=== PATIENT | male | born 1935 | race Caucasian/White ===

== ENCOUNTER → 2020-01-18 13:37 | Outpatient (BNVA) | payer MEDICARE, SELFPAY | PROVIDERS: PCP Internal Medicine; Visit Provider Internal Medicine | DX: I48.19 Other persistent atrial fibrillation (principal); Z51.81 Encounter for therapeutic drug level monitoring; Z79.01 Long term (current) use of anticoagulants | CPT/HCPCS: 85610; 99211 ==

== ENCOUNTER 2020-02-02 10:22 | Outpatient (REF) | payer MEDICARE, SELFPAY ==
--- NOTE | 2020-02-02 10:29 | CT_ITS ---
EXAMINATION: CT CHEST WITHOUT CONTRAST CLINICAL INFORMATION: Dyspnea and pulmonary nodules. COMPARISON: None. TECHNIQUE: Multidetector volumetric CT imaging of the chest was done. Axial MIP volume rendering provided. Sagittal and coronal reformatted images were obtained. This CT examination was performed using dose optimization techniques as appropriate, variously including the following: *Automated exposure control *Adjustment of mA and/or kV according to patient size (this includes techniques or standardized protocols for targeted exams where dose is matched to indication/reason for exam; i.e. extremities or head) *Use of iterative reconstruction technique DLP: 209 mGy-cm. FINDINGS: HOT REPAIRMAN: Elevated right hemidiaphragm. LUNGS: The lungs are well expanded with atelectatic changes right lung base. No pulmonary nodule, mass or consolidation seen. MEDIASTINUM: The thyroid lobes are symmetrical and normal. The central trachea and the bronchi are widely patent. Accessory calcified plaques is seen throughout the thoracic aorta with coronary artery calcifications well. The ascending aorta measures 5.3 x 5.1 cm on image 32/3. PLEURA: There is no pleural effusion, thickening or calcification seen. AXILLA: No abnormal lymph nodes. The chest wall is unremarkable. UPPER ABDOMEN: Visualized liver, spleen, adrenal glands appear unremarkable. Exophytic cyst upper pole right kidney. OSSEOUS STRUCTURES: No lytic or sclerotic process seen. There is mild spondylosis throughout dorsal spine. IMPRESSION: Mild atelectatic changes right lower lobe with elevated right hemidiaphragm. No acute consolidation, mass or pulmonary nodules. Exophytic cyst upper pole right kidney.
--- NOTE | 2020-02-02 13:09 | PFT_ITS ---
INDICATION: Lung nodules. SPIROMETRY: The FEV1 to FVC of 86% with an FEV1 of 1.72 L which is 68% predicted and an FVC of 2 L which is 55% predicted. No significant response to bronchodilators noted. Maximum voluntary ventilation 78% predicted. LUNG VOLUMES: Total lung capacity 60% predicted with an expiratory reserve volume of only 7% predicted. DIFFUSION CAPACITY: DLCO 56% predicted. COMPARISON: PFTs from 2016. INTERPRETATION: No obstructive ventilatory defect. No significant response to bronchodilators noted, however there is a moderate restrictive ventilatory defect. The patient also has a moderate diffusion impairment. When compared to 2016, there is significant decrease in the FVC, significant decrease in the FEV1, trend increase in the total lung capacity, and trend decrease in the diffusion capacity. Clinical correlation warranted. MD MEETA Cullen/NEELAM / [phone]
== END 2020-02-02 10:23 | disposition home or self-care (01) ==
LOC: HO.CT 10:22
PROVIDERS: PCP Internal Medicine; Visit Provider Hospitalist
DX: R91.8 Other nonspecific abnormal finding of lung field (principal)
CPT/HCPCS: 71250; 94060; 94727; 94729

== ENCOUNTER → 2020-02-07 10:58 | Outpatient (BNVA) | payer MEDICARE, SELFPAY | PROVIDERS: PCP Internal Medicine; Referring Provider Internal Medicine; Visit Provider Hospitalist | DX: I77.810 Thoracic aortic ectasia (principal); R06.00 Dyspnea, unspecified; J98.11 Atelectasis; R91.8 Other nonspecific abnormal finding of lung field; Z79.01 Long term (current) use of anticoagulants | CPT/HCPCS: 99214 ==

== ENCOUNTER → 2020-02-15 11:00 | Outpatient (BNVA) | payer MEDICARE, SELFPAY | PROVIDERS: PCP Internal Medicine; Visit Provider Internal Medicine | DX: I48.19 Other persistent atrial fibrillation (principal); Z79.01 Long term (current) use of anticoagulants; Z51.81 Encounter for therapeutic drug level monitoring | CPT/HCPCS: 85610; 99211 ==

== ENCOUNTER 2020-03-07 09:17 | Outpatient (REF) | payer MEDICARE, SELFPAY ==
[2020-03-07 10:16] LABS: Basophils Percent Auto 0.2 % (0-2); Eosinophils Absolute Auto 0.1 X10*3/uL (0.0-0.4); Eosinophils Percent Auto 0.8 % (0-4); Hematocrit 45.9 % (42-52); Hemoglobin 15.3 g/dl (14.0-18.0); Imm Gran Abs Auto 0.07 X10*3/uL (0.00-0.03); Imm Gran Pct Auto 0.5 % (0.0-0.4); Lymphocytes Absolute Auto 2.7 X10*3/uL (1.2-4.9); Lymphocytes Percent Auto 20.1 % (20-40); Mean Corpuscular HGB Conc 33.3 g/dl (31.0-36.0); Mean Corpuscular Hemoglobin 30.4 pg (27.0-33.0); Mean Corpuscular Volume 91.3 fL (80-98); Monocytes Absolute Auto 1.4 X10*3/uL (0.1-1.2); Monocytes Percent Auto 10.9 % (2-11); Neutrophils Absolute Auto 8.9 X10*3/uL (2.0-8.3); Neutrophils Percent Auto 67.5 % (45-73); Platelet Count 306 X10*3/uL (160-400); Red Blood Count 5.03 X10*6/uL (4.60-5.80); Red Cell Distribution Width 15.9 % (11.0-16.0); White Blood Count 13.2 X10*3/uL (4.8-10.8)
[2020-03-07 10:17] LABS: MANUAL DIFF FLAG NO
[2020-03-07 10:38] LABS: Cholesterol 167 mg/dL; HDL Cholesterol 34 mg/dL; LDL Cholesterol Calculated 106 mg/dl; Triglycerides 136 mg/dL
[2020-03-07 10:42] LABS: Anion Gap 14 (12-20); Blood Urea Nitrogen 29 mg/dL (9-16); Carbon Dioxide 28 mmol/L (22-29); Chloride 106 mmol/L (96-108); Estimated Glomerular Filt Rate 54; Phosphorus 2.8 mg/dL (2.7-4.5); Potassium 4.7 mmol/l (3.3-5.1); Sodium 143 mmol/L (135-145)
[2020-03-07 11:26] LABS: Renal w Reflex Lab Use Only Order verified
[2020-03-07 11:33] LABS: Calcium 9.1 mg/dL (8.4-10.2)
== END 2020-03-07 09:18 | disposition home or self-care (01) ==
LOC: HO.LAB 09:17
PROVIDERS: Absent Provider Internal Medicine Nephrology; PCP Internal Medicine; Visit Provider Internal Medicine
DX: I12.9 Hypertensive chronic kidney disease with stage 1 through stage 4 chronic kidney disease, or unspecified chronic kidney disease (principal); N18.30 Chronic kidney disease, stage 3 unspecified
CPT/HCPCS: 36415; 80051; 80061; 82310; 82565; 84100; 84520; 85025

== ENCOUNTER 2020-03-10 10:54 | Outpatient (REF) | payer MEDICARE, SELFPAY | END 2020-03-10 10:55 | disposition home or self-care (01) | LOC: HO.LAB 10:54 | PROVIDERS: PCP Internal Medicine; Visit Provider Internal Medicine | DX: Z20.828 Contact with and (suspected) exposure to other viral communicable diseases (principal) | CPT/HCPCS: C9803; U0003 ==

== ENCOUNTER → 2020-03-17 09:04 | Outpatient (BNVA) | payer MEDICARE, SELFPAY | PROVIDERS: PCP Internal Medicine; Visit Provider Internal Medicine | DX: I48.19 Other persistent atrial fibrillation (principal); Z51.81 Encounter for therapeutic drug level monitoring; Z79.01 Long term (current) use of anticoagulants | CPT/HCPCS: 85610; 99211 ==

== ENCOUNTER 2020-03-24 09:30 | Inpatient (IN) | payer MEDICARE, SELFPAY ==
[2020-03-24] VITALS (10 sets, daily range): BP systolic 127–149; BP diastolic 60–85; PULSE 80–94; RESP 16–32; TEMP 36.8–37; O2SAT 80–94; BMI 29.5
--- NOTE | 2020-03-24 09:48 | XR_ITS ---
EXAMINATION: XR CHEST CLINICAL INFORMATION: Dyspnea. COMPARISON: Chest 01/08/2019 TECHNIQUE: Frontal view of the chest was obtained. FINDINGS: The lungs are hypoexpanded but clear of acute process. The heart size is enlarged. Pulmonary vascularity is normal. No gross bony abnormality seen. XR/XR chest 1V IMPRESSION: Hypoexpanded lungs with no acute process seen. Mild cardiomegaly.
--- NOTE | 2020-03-24 09:48 | ECG_ITS ---
Test Reason : DYSPNEA Blood Pressure : / mmHG Vent. Rate : 079 BPM Atrial Rate : 312 BPM P-R Int : 000 ms QRS Dur : 096 ms QT Int : 360 ms P-R-T Axes : 000 -46 012 degrees QTc Int : 412 ms Atrial fibrillation Left axis deviation Abnormal ECG When compared with ECG of 17-DEC-2018 10:34, No significant changes seen Referred By: Shanti Zelaya Electronically Signed By:DHAVAL CUENCA
--- NOTE | 2020-03-24 09:50 | ED_ITS ---
HPI - URI/Sore Throat General Chief Complaint: Dyspnea Stated Complaint: Short of breath Time Seen by Provider: 03/24/20 09:47 Source: EMS Mode of arrival: EMS Limitations: no limitations History of Present Illness MD elicited complaint: cough, rhinorrhea and other (shortness of breath) Pertinent past history: other ( diagnosed with COVID almost 2 weeks ago) Onset (ago): day(s) (patient has been feeling sick since Friday) Consistency: constant Severity: severe Able to tolerate fluids by mouth: Yes Exacerbating factors: exertion Relieving factors: other (oxygen) Context: sick contacts ( with COVID) Associated symptoms: chills, rhinorrhea, cough and shortness of breath Treatments prior to arrival: other (given oxgen en route his RA sat was 80%) Related Data Home Medications Medication Instructions Recorded Confirmed amlodipine 5 mg tablet 5 mg PO DAILY 02/07/20 03/24/20 ascorbate calcium (vitamin C) 500 500 mg PO DAILY 02/07/20 03/24/20 mg tablet atorvastatin 20 mg tablet 20 mg PO DAILY 02/07/20 03/24/20 fenofibrate nanocrystallized 145 145 mg PO DAILY 02/07/20 03/24/20 mg tablet lisinopril 40 mg tablet 40 mg PO DAILY 02/07/20 03/24/20 metoprolol succinate 25 mg 25 mg PO DAILY 02/07/20 03/24/20 tablet,extended release 24 hr warfarin 1.25 mg PO MOWEFRSA@1800 03/24/20 03/24/20 warfarin [Jantoven] 2.5 mg PO SUTUTH@1800 03/24/20 03/24/20 Previous Rx's Medication Instructions Recorded warfarin 2.5 mg tablet See Rx Instructions .ROUTE 01/18/20 .COMPLEX #90 tab Allergies Allergy/AdvReac Type Severity Reaction Status Date / Time No Known Allergies Allergy Verified 03/24/20 09:49 [No Known Allergies*] Review of Systems Review of Systems: Constitutional : No Fever, pos Chills ENT/Mouth : No sore throat, pos Rhinorrhea, No Swallowing Difficulty Eyes: No Eye Pain, No Swelling, No Redness Cardiovascular : No Chest Pain, positive SOB, No Orthopnea,noEdema Respiratory : pos Cough, No Sputum, No Wheezing, positive dyspnea Gastrointestinal : No Nausea, No Vomiting, No Diarrhea, No abdominal Pain, No Hematochezia, No Melena Genitourinary : No Dysuria, No Urinary Frequency, No Hematuria Musculoskeletal : No joint pain, No Myalgias Skin : No Skin Lesions, No rash Neuro : pos Weakness, No Numbness, No Dizziness, No Headache Psych : No Anxiety/Panic, No Depression Heme/Lymph: No Bruising, No Lymphadenopathy Endocrine : No Polyuria, No Polydipsia All other systems reviewed and are negative [facility] Past Medical History Attestation statement: The following information was validated with the patient. Medical History Afib Atelectasis of right lung Dyspnea Ectatic thoracic aorta HTN (hypertension) Hyperlipidemia Pulmonary nodules Surgical History History of knee replacement procedure of left knee History of melanoma excision Family History Family History (Updated 03/06/20 @ 08:45 by Clary Reynolds [facility]) Father Medical history unknown Mother Medical history unknown Brother No problems noted. Social History Social History (Updated 03/24/20 @ 09:52 by Shanti Zelaya DO) Smoking Status: Never smoker Use of substances other than those prescribed or required for medical reasons: No Advance Directives: No Advance Directives Information Provided: No Physical Exam Vital Signs: Vital Signs: Last Vital Signs Temp 98.4 F 03/24/20 09:38 Pulse 90 03/24/20 09:38 Resp 30 H 03/24/20 09:38 BP 149/67 H 03/24/20 09:38 Pulse Ox 80 L 03/24/20 09:38 Body Mass Index 29.5 Appearance: Alert. Oriented X3. mild acute distress. Eyes: Pupils equal, round and reactive to light. ENT: Pharynx normal. Neck: Normal inspection. Neck supple. CVS: Normal heart rate and rhythm. Pulses normal. Respiratory: mild respiratory distress - tachypnea and retractions. Breath sounds no wheezes, crackles at bases Abdomen: Soft and non-tender. Skin: Skin warm and dry. Normal skin color. Normal skin turgor. Extremities: No lower extremity edema. No calf ttp Neuro: Oriented X 3. No motor deficit. No sensory deficit. MDM - URI/Sore Throat MDM Narrative Medical decision making narrative: 84 yo male with known COVID exposure here with dyspnea/URI symptoms hypoxia - requiring O2 6L NC to maintain sats in 90s, hx of undiagnosed ILD - at this time he is on coumadin so PE seems unlikely will obtain labs, cultures, start IV dexamethasone, empiric antibiotics, admit for further care Lab Data Result diagrams: 03/24/20 10:06 03/24/20 10:06 Labs: Lab Results 03/24/20 03/24/20 Range/Units 10:06 10:06 WBC 5.4 (4.8-10.8) X10*3/uL RBC 5.10 (4.60-5.80) X10*6/uL Hgb 15.6 (14.0-18.0) g/dl Hct 46.9 (42-52) % MCV 92.0 (80-98) fL MCH 30.6 (27.0-33.0) pg MCHC 33.3 (31.0-36.0) g/dl RDW 16.0 (11.0-16.0) % Plt Count 204 D (160-400) X10*3/uL MPV 11.6 (9.4-12.4) fL Immature Gran % (Auto) 0.6 H (0.0-0.4) % Neut % (Auto) 70.5 (45-73) % Lymph % (Auto) 22.2 (20-40) % [place] % (Auto) 6.3 (2-11) % Eos % (Auto) 0.2 (0-4) % Baso % (Auto) 0.2 (0-2) % Lymph # (Auto) 1.2 (1.2-4.9) X10*3/uL [place] # (Auto) 0.3 (0.1-1.2) X10*3/uL Eos # (Auto) 0.0 (0.0-0.4) X10*3/uL Baso # (Auto) 0.0 (0.0-0.2) X10*3/uL Abs Immat Gran (auto) 0.03 (0.00-0.03) X10*3/uL Absolute Neuts (auto) 3.8 (2.0-8.3) X10*3/uL Absolute Nucleated RBC 0.000 (0.0-0.012) X10*3/uL Nucleated RBC % (auto) 0.0 (0.0-0.2) /100WBC PT 27.0 H (10.8-13.0) SEC INR 2.3 H (0.9-1.1) APTT 42.8 H (24.1-38.0) SEC D-Dimer < 200 NG/ML ECG Data Attestation: I personally reviewed and interpreted this ECG as follows: ECG interpretation date: 03/24/20 ECG interpretation time: 10:36 Interpretation: Rate: 79 Rhythm: afib [place]: left Normal P waves. Normal GRISELDA. Normal QRS complex. ST T wave : nonspecific, no SHANE qTC: normal prior studies: no acute ischemia The study has been interpreted contemporaneously by me. . Critical Care Time Critical Care Time Critical Care Time: Yes Total Critical Care Time: 35 Attestation: supplemtal O2, IV antibiotics, reassessments. I attest to this time spent taking care of the patient Discharge Plan Discharge Clinical Impression: COVID-19, Hypoxia Patient Disposition: Admitted As Inpatient
[2020-03-24 10:16] LABS: MANUAL DIFF FLAG NO
[2020-03-24 10:26] LABS: Basophils Percent Auto 0.2 % (0-2); Eosinophils Percent Auto 0.2 % (0-4); Hematocrit 46.9 % (42-52); Hemoglobin 15.6 g/dl (14.0-18.0); INTERNATIONAL NORM RATIO 2.3 (0.9-1.1); Imm Gran Abs Auto 0.03 X10*3/uL (0.00-0.03); Imm Gran Pct Auto 0.6 % (0.0-0.4); Lymphocytes Absolute Auto 1.2 X10*3/uL (1.2-4.9); Lymphocytes Percent Auto 22.2 % (20-40); Mean Corpuscular HGB Conc 33.3 g/dl (31.0-36.0); Mean Corpuscular Hemoglobin 30.6 pg (27.0-33.0); Mean Platelet Volume 11.6 fL (9.4-12.4); Monocytes Absolute Auto 0.3 X10*3/uL (0.1-1.2); Monocytes Percent Auto 6.3 % (2-11); Neutrophils Absolute Auto 3.8 X10*3/uL (2.0-8.3); Neutrophils Percent Auto 70.5 % (45-73); Platelet Count 204 X10*3/uL (160-400); White Blood Count 5.4 X10*3/uL (4.8-10.8)
[2020-03-24 10:29] LABS: Partial Thromboplastin Time 42.8 SEC (24.1-38.0)
[2020-03-24 10:32] LABS: D Dimer < 200 NG/ML
[2020-03-24] MEDS: cefTRIAXone sodium 1 GM in 0.9 % Sodium Chloride 50 ML IV (10:33)
[2020-03-24] MEDS: dexAMETHasone sod phosphate 4 MG/ML VIAL IVPUSH (10:33)
[2020-03-24 10:47] LABS: Lactic Acid 1.1 mmol/L (0.5-2.0)
[2020-03-24 10:51] LABS: Alanine Aminotransferase 24 U/L (0-40); Alkaline Phosphatase 36 U/L (39-117); Anion Gap 13 (12-20); Aspartate Amino Transferase 34 U/L (5-37); Bilirubin Direct 0.5 mg/dL (0.0-0.5); Bilirubin Total 0.8 mg/dL (0.0-1.0); Blood Urea Nitrogen 25 mg/dL (9-16); C Reactive Protein 8.67 mg/dL (< or = 0.50); Calcium 8.4 mg/dL (8.4-10.2); Carbon Dioxide 27 mmol/L (22-29); Chloride 107 mmol/L (96-108); Creatinine Clr Calc Pharmacy 47.6; Estimated Glomerular Filt Rate 53; Glucose Random 101 mg/dL (60-115); Lactate Dehydrogenase 426 U/L (118-273); Lipase 53 U/L (8-78); Magnesium 1.9 mg/dL (1.6-2.6); Potassium 4.3 mmol/l (3.3-5.1); Sodium 143 mmol/L (135-145); Total Protein 6.5 g/dL (6.5-8.0)
[2020-03-24 10:58] LABS: B Type Natriuretic Peptide 47 pg/mL (<100)
[2020-03-24 10:58] LABS: Base Excess VBG -0.2 mmol/L; Blood Gas Serial # 5396; HCO3 VBG 27 mmol/L; Oxygen Saturation VBG 38.2 %; PCO2 VBG 52 mmhg; PO2 VBG 25 mmhg; pH VBG 7.33 (7.32-7.43)
[2020-03-24 11:11] LABS: Ferritin 1492 ng/mL (20-250)
[2020-03-24] MEDS: Azithromycin 500 MG in 0.9 % Sodium Chloride 250 ML 125 MG IV (11:19)
[2020-03-24 11:39] LABS: Procalcitonin 0.06 ng/mL
--- NOTE | 2020-03-24 12:09 | PC.NURSE ---
RECVD REPORT FROM TRAVIS CAMERON. PT UPRIGHT IN BED, RR EVEN UNLABORED, SKIN WPD, AOX3. PT ON 55% O2 VIA VENTURI MASK, PT BREATHING WITH EASE, VSS, NAD. PT OFFERS NO ACUTE COMPLAINTS, DRINKING WATER W/OUT DIFFICULTY. PT AWAITING HOSPITALIST EVAL, AWARE/AGREEABLE TO PLAN OF CARE.
[2020-03-24 12:56] LABS: Influenza A PCR NEGATIVE (Negative); Influenza B PCR NEGATIVE (Negative); Resp Syncy Virus RNA Qual PCR NEGATIVE (Negative); SARS COV2 PCR INHOUSE POSITIVE (Negative)
--- NOTE | 2020-03-24 13:48 | PC.NURSE ---
PT UPRIGHT IN BED EATING LUNCH, PT SWITCHED TO NC AT 6L O2 TO EAT, SPO2 DROPPED TO 86% ATT, WILL PLACE BACK ON VENTI MASK WHEN DONE EATING. PT CONTINUES TO OFFER NO ACUTE COMPLAINTS.
--- NOTE | 2020-03-24 14:26 | P.HPHOSP_ITS ---
History of Present Illness Date of Service: 03/24/20 <BENJA Vigil - Last Filed: 03/24/20 14:36> Chief Complaint: Shortness of breath <BENJA Vigil - Last Filed: 03/24/20 14:36> This is an 84-year-old male who presents to the emergency department with shortness of breath. His was recently diagnosed with COVID-19. She began having symptoms about a week and a half ago and her symptoms have since resolved. His symptoms began on March 18. Initially he just felt fatigued and then began feeling short of breath with exertion. Yesterday his oxygen saturation at home was reading 87% on room air. His shortness of breath progressed that any movement at all and this prompted him to come to the emergency department for evaluation. He denies any fever, chills, body aches, c hest pain. On arrival he was hypoxic with an oxygen saturation of 80% on room air. He was also tachypneic. Lab work revealed elevated ferritin of 1492, LDH of 426 and CRP of 8.67. Chest x-ray was unremarkable. He required oxygen by Venti mask 2 main attain oxygen saturations above 90. <BENJA Vigil - Last Filed: 03/24/20 14:36> Review of Systems Review of Systems: Yes all other systems are reviewed and are negative <BENJA Vigil - Last Filed: 03/24/20 14:36> Constitutional: Constitutional: Denies chills and Denies fever(s) <BENJA Vigil - Last Filed: 03/24/20 14:36> Cardiovascular: Cardiovascular: Denies chest pain <BENJA Vigil - Last Filed: 03/24/20 14:36> Respiratory: Respiratory: Denies cough <BENJA Vigil Last Filed: 03/24/20 14:36> Gastrointestinal: Gastrointestinal: Denies abdominal pain <BENJA Vigil - Last Filed: 03/24/20 14:36> [facility] Medical History: Medical History (Updated 03/24/20 @ 14:32 by BENJA Vigil) Afib Atelectasis of right lung CKD (chronic kidney disease) stage 3, GFR 30-59 ml/min Dyspnea Ectatic thoracic aorta Gout HTN (hypertension) Hyperlipidemia Pulmonary nodules <BENJA Vigil - Last Filed: 03/24/20 14:36> Functional capacity: independent ambulation <BENJA Vigil - Last Filed: 03/24/20 14:36> Family History: Family History Father Heart disease Mother Dementia Brother No problems noted. <BENJA Vigil - Last Filed: 03/24/20 14:36> Family history: reviewed and not pertinent <BENJA Vigil - Last Filed: 03/24/20 14:36> Surgical History: Surgical History History of knee replacement procedure of left knee History of melanoma excision <BENJA Vigil - Last Filed: 03/24/20 14:36> Social History: Social History (Updated 03/24/20 @ 14:33 by BENJA Vigil) Alcohol intake: never Smoking Status: Former smoker Use of substances other than those prescribed or required for medical reasons: No Advance Directives: No Advance Directives Information Provided: No <BENJA Vigil - Last Filed: 03/24/20 14:36> Meds Allergies/Adverse reactions: Allergies Allergy/AdvReac Type Severity Reaction Status Date / Time No Known Allergies Allergy Verified 03/24/20 09:49 [No Known Allergies*] <BENJA Vigil - Last Filed: 03/24/20 14:36> Home medications: Home Medications Medication Instructions Recorded Confirmed Type amlodipine 5 mg tablet 5 mg PO DAILY 02/07/20 03/24/20 History ascorbate calcium (vitamin C) 500 500 mg PO DAILY 02/07/20 03/24/20 History mg tablet atorvastatin 20 mg tablet 20 mg PO DAILY 02/07/20 03/24/20 History fenofibrate nanocrystallized 145 145 mg PO DAILY 02/07/20 03/24/20 History mg tablet lisinopril 40 mg tablet 40 mg PO DAILY 02/07/20 03/24/20 History metoprolol succinate 25 mg 25 mg PO DAILY 02/07/20 03/24/20 History tablet,extended release 24 hr warfarin 1.25 mg PO MOWEFRSA@1800 03/24/20 03/24/20 History warfarin [Jantoven] 2.5 mg PO SUTUTH@1800 03/24/20 03/24/20 History <BENJA Vigil - Last Filed: 03/24/20 14:36> Physical Exam Vital Signs and Narrative: Vital Signs: Last Vital Signs Temp 98.4 F 03/24/20 09:38 Pulse 84 03/24/20 13:47 Resp 20 03/24/20 13:47 BP 129/67 03/24/20 12:51 Pulse Ox 86 L 03/24/20 13:47 Body Mass Index 29.5 <BENJA Vigil - Last Filed: 03/24/20 14:36> Const: Nutritional Appearance: well nourished <BENJA Vigil - Last Filed: 03/24/20 14:36> Orientation/consciousness: patient oriented x3 <BENJA Vigil - Last Filed: 03/24/20 14:36> HENMT: Head: Yes normocephalic and Yes atraumatic <BENJA Vigil - Last Filed: 03/24/20 14:36> Eyes: Sclerae: sclerae normal <BENJA Vigil - Last Filed: 03/24 14:36> Chest: Chest palpation & inspection: normal inspection of the chest <BENJA Vigil Last Filed: 03/24/20 14:36> Resp: Other: labored breathing with conversation but able to speak in full sentences <BENJA Vigil - Last Filed: 03/24/20 14:36> Effort & Inspection: normal respiratory effort <BENJA Vigil - Last Filed: 03/24/20 14:36> Cardio: Rate: regular rate <BENJA Vigil - Last Filed: 03/24/20 14:36> Rhythm: regular rhythm <BENJA Vigil - Last Filed: 03/24/20 14:36> GI: Palpation (GI): Soft to palpation and nontender <BENJA Vigil - Last Filed: 03/24/20 14:36> Skin: General skin exam: no rashes or lesions noted <BENJA Vigil - Last Filed: 03/24/20 14:36> Neuro: General: patient oriented x3 <BENJA Vigil - Last Filed: 03/24/20 14:36> Cranial nerves: Yes CN's II-XII intact bilaterally and Yes Bilaterally intact EOM present <BENJA Vigil - Last Filed: 03/24/20 14:36> Extrem: General: Yes normal to inspection <BENJA Vigil - Last Filed: 03/24/20 14:36> Results Labs CBC and Chem 7: : 03/24/20 10:06 03/24/20 10:06 <BENJA Vigil - Last Filed: 03/24/20 14:36> Labs: Laboratory Results - last 24 hr 03/24/20 03/24/20 03/24/20 10:06 10:06 10:06 MCV 92.0 MCH 30.6 MCHC 33.3 RDW 16.0 Plt Count 204 D MPV 11.6 Immature Gran % (Auto) 0.6 H Neut % (Auto) 70.5 Lymph % (Auto) 22.2 [place] % (Auto) 6.3 Eos % (Auto) 0.2 Baso % (Auto) 0.2 Lymph # (Auto) 1.2 [place] # (Auto) 0.3 Eos # (Auto) 0.0 Baso # (Auto) 0.0 Abs Immat Gran (auto) 0.03 Absolute Neuts (auto) 3.8 Absolute Nucleated RBC 0.000 Nucleated RBC % (auto) 0.0 PT INR APTT D-Dimer VBG pH VBG pCO2 VBG pO2 VBG HCO3 VBG O2 Saturation VBG Base Excess Anion Gap 13 Estim Creat Clear Calc 47.6 Estimated GFR 53 Random Glucose 101 Lactic Acid Calcium 8.4 D Magnesium Ferritin Total Bilirubin Direct Bilirubin AST ALT Alkaline Phosphatase Lactate Dehydrogenase Troponin I High Sens C-Reactive Protein 8.67 H B-Natriuretic Peptide 47 Total Protein Albumin Lipase Procalcitonin Coronavirus (PCR) Influenza Type A (PCR) Influenza Type B (PCR) RSV RNA Qual (PCR) 03/24/20 03/24/20 03/24/20 10:06 10:06 10:06 MCV MCH MCHC RDW Plt Count MPV Immature Gran % (Auto) Neut % (Auto) Lymph % (Auto) [place] % (Auto) Eos % (Auto) Baso % (Auto) Lymph # (Auto) [place] # (Auto) Eos # (Auto) Baso # (Auto) Abs Immat Gran (auto) Absolute Neuts (auto) Absolute Nucleated RBC Nucleated RBC % (auto) PT 27.0 H INR 2.3 H APTT 42.8 H D-Dimer < 200 VBG pH VBG pCO2 VBG pO2 VBG HCO3 VBG O2 Saturation VBG Base Excess Anion Gap Estim Creat Clear Calc Estimated GFR Random Glucose Lactic Acid 1.1 Calcium Magnesium 1.9 Ferritin 1492 H Total Bilirubin 0.8 Direct Bilirubin 0.5 AST 34 ALT 24 Alkaline Phosphatase 36 L Lactate Dehydrogenase 426 H Troponin I High Sens C-Reactive Protein B-Natriuretic Peptide Total Protein 6.5 Albumin 4.0 Lipase 53 Procalcitonin Coronavirus (PCR) Influenza Type A (PCR) Influenza Type B (PCR) RSV RNA Qual (PCR) 03/24/20 03/24/20 03/24/20 10:06 10:06 10:08 MCV MCH MCHC RDW Plt Count MPV Immature Gran % (Auto) Neut % (Auto) Lymph % (Auto) [place] % (Auto) Eos % (Auto) Baso % (Auto) Lymph # (Auto) [place] # (Auto) Eos # (Auto) Baso # (Auto) Abs Immat Gran (auto) Absolute Neuts (auto) Absolute Nucleated RBC Nucleated RBC % (auto) PT INR APTT D-Dimer VBG pH VBG pCO2 VBG pO2 VBG HCO3 VBG O2 Saturation VBG Base Excess Anion Gap Estim Creat Clear Calc Estimated GFR Random Glucose Lactic Acid Calcium Magnesium Ferritin Total Bilirubin Direct Bilirubin AST ALT Alkaline Phosphatase Lactate Dehydrogenase Troponin I High Sens 15.0 C-Reactive Protein B-Natriuretic Peptide Total Protein Albumin Lipase Procalcitonin 0.06 Coronavirus (PCR) POSITIVE A Influenza Type A (PCR) NEGATIVE Influenza Type B (PCR) NEGATIVE RSV RNA Qual (PCR) NEGATIVE 03/24/20 10:50 MCV MCH MCHC RDW Plt Count MPV Immature Gran % (Auto) Neut % (Auto) Lymph % (Auto) [place] % (Auto) Eos % (Auto) Baso % (Auto) Lymph # (Auto) [place] # (Auto) Eos # (Auto) Baso # (Auto) Abs Immat Gran (auto) Absolute Neuts (auto) Absolute Nucleated RBC Nucleated RBC % (auto) PT INR APTT D-Dimer VBG pH 7.33 VBG pCO2 52 VBG pO2 25 VBG HCO3 27 VBG O2 Saturation 38.2 VBG Base Excess -0.2 Anion Gap Estim Creat Clear Calc Estimated GFR Random Glucose Lactic Acid Calcium Magnesium Ferritin Total Bilirubin Direct Bilirubin AST ALT Alkaline Phosphatase Lactate Dehydrogenase Troponin I High Sens C-Reactive Protein B-Natriuretic Peptide Total Protein Albumin Lipase Procalcitonin Coronavirus (PCR) Influenza Type A (PCR) Influenza Type B (PCR) RSV RNA Qual (PCR) <BENJA Vigil - Last Filed: 03/24/20 14:36> Imaging Radiologist's Impressions: Impressions Chest X-Ray 03/24/20 09:48 IMPRESSION: Hypoexpanded lungs with no acute process seen. Mild cardiomegaly. <BENJA Vigil - Last Filed: 03/24/20 14:36> Assessment and Plan (1) COVID-19: Status: Acute <BENJA Vigil - Last Filed: 03/24/20 14:36> (2) Acute respiratory failure with hypoxia: Status: Acute <BENJA Vigil - Last Filed: 03/24/20 14:36> This is an 84-year-old male history of atrial fibrillation on Coumadin, CKD, hypertension, dyslipidemia, restrictive lung disease who presents to the emergency department with shortness of breath found to have COVID-19 Acute respiratory failure with hypoxia COVID-19 pneumonia -supplemental oxygen as needed -IV dexamethasone -pulmonary consult -infectious disease consult Hypertension Continue Norvasc, lisinopril, metoprolol Atrial fibrillation Rate controlled Continue metoprolol Continue anticoagulation with Coumadin. INR today 2.3 Dyslipidemia Continue statin, fenofibrate DVT prophylaxis-Coumadin Code status-full code This case was discussed with Dr. Loco <BENJA Vigil - Last Filed: 03/24/20 14:36>
[2020-03-24] MEDS: 0.9 % Sodium Chloride Flush 3 ML SYRINGE IVFLUSH ×2 (18:21→20:03)
[2020-03-24] MEDS: Warfarin Sodium 1.25 MG HALFTAB PO (20:00)
[2020-03-25] VITALS (17 sets, daily range): BP systolic 126–168; BP diastolic 66–82; PULSE 62–89; RESP 15–34; TEMP 36.1–37.1; O2SAT 88–93
[2020-03-25 05:23] LABS: MANUAL DIFF FLAG NO
[2020-03-25 05:24] LABS: Imm Gran Abs Auto 0.01 X10*3/uL (0.00-0.03); Imm Gran Pct Auto 0.2 % (0.0-0.4); Lymphocytes Absolute Auto 0.9 X10*3/uL (1.2-4.9); Lymphocytes Percent Auto 20.4 % (20-40); Mean Corpuscular HGB Conc 32.6 g/dl (31.0-36.0); Mean Corpuscular Hemoglobin 29.6 pg (27.0-33.0); Mean Corpuscular Volume 90.9 fL (80-98); Mean Platelet Volume 11.8 fL (9.4-12.4); Monocytes Absolute Auto 0.5 X10*3/uL (0.1-1.2); Monocytes Percent Auto 10.2 % (2-11); Neutrophils Absolute Auto 3.2 X10*3/uL (2.0-8.3); Neutrophils Percent Auto 69.2 % (45-73); Platelet Count 223 X10*3/uL (160-400); Red Blood Count 5.06 X10*6/uL (4.60-5.80); Red Cell Distribution Width 15.8 % (11.0-16.0); White Blood Count 4.6 X10*3/uL (4.8-10.8)
[2020-03-25 05:33] LABS: INTERNATIONAL NORM RATIO 2.7 (0.9-1.1); Prothrombin Time 32.8 SEC (10.8-13.0)
[2020-03-25 05:51] LABS: Anion Gap 15 (12-20); Blood Urea Nitrogen 20 mg/dL (9-16); Calcium 7.9 mg/dL (8.4-10.2); Carbon Dioxide 22 mmol/L (22-29); Chloride 108 mmol/L (96-108); Creatinine Clr Calc Pharmacy 68.3; Estimated Glomerular Filt Rate > 60; Glucose Random 131 mg/dL (60-115); Potassium 4.5 mmol/l (3.3-5.1); Sodium 140 mmol/L (135-145)
[2020-03-25] MEDS: 0.9 % Sodium Chloride Flush 3 ML SYRINGE IVFLUSH ×3 (09:08→21:16)
[2020-03-25] MEDS: Fenofibrate 160 MG TABLET PO (09:09)
[2020-03-25] MEDS: amLODIPine Besylate 5 MG TABLET PO (09:09)
[2020-03-25] MEDS: Atorvastatin Calcium 20 MG TABLET PO (09:09)
[2020-03-25] MEDS: lisinopriL 40 MG TABLET PO (09:12)
[2020-03-25] MEDS: Metoprolol Succinate ER 25 MG TAB.ER.24H PO (09:13)
[2020-03-25] MEDS: dexAMETHasone sod phosphate 4 MG/ML VIAL 6 MG IVPUSH (09:13)
--- NOTE | 2020-03-25 09:56 | PM.EVENT ---
Event Note Date of Service: 03/25/20 Event Note: I have reviewed the case , interviewed and examined the pt. Complete note is dictated . A: COVID-19 infection . Resp. Failure , Hypoxemic , reqiring High Flow O2 . Previously known to have mild to modertae restrictive lung disorder , may be sec to obesity , and chronic Atalectasis Rt base . P: Agree with current treatment plam . including Dexamethasone 6 mg IV daily x 10 days . and O2 by High Flow , to keep O2 sat above 90 % . Encourage pt . to do deep breathing exercises .
--- NOTE | 2020-03-25 10:02 | P.PNIM_ITS ---
Subjective Subjective Date of Service: 03/25/20 Interval History: Seen in f/u for COVID related acute hypoxic respiratory failure. Patient is on high-flow O2 he says he feels a little bit better than yesterday. His oxygen saturation is however borderline with a high-flow oxygen. Review of Systems Gen: no fever Resp: + sob, + cough CV: no chest, no DALY, no leg edema GI: No n/v, no abd pain Neuro: No confusion Physical Exam Vital Signs: Vital Signs: Last Vital Signs Temp 97.0 F 03/25/20 08:00 Pulse 80 03/25/20 09:13 Resp 28 H 03/25/20 08:00 BP 126/67 03/25/20 09:13 Pulse Ox 89 L 03/25/20 08:00 Body Mass Index 29.5 Const: Other: General: AO X 3, no acute, talk in full sentences Resp: No accessory muscle use, CVS: iregular GI: non tender Skin: No rash Neuro: motor grossly intact Psych: appropriate affect Objective Data Current Medications Generic Name Dose Route Start Last Admin Trade Name Freq PRN Reason Stop Dose Admin Acetaminophen 650 mg 03/24/20 17:56 Acetaminophen 325 Mg Tablet PO Q6H PRN Pain, Mild (Pain Scale 1-3) Amlodipine Besylate 5 mg 03/25/20 09:00 03/25/20 09:09 Amlodipine Besylate 5 Mg Tablet PO 5 mg DAILY REGINALDO Administration Protocol Ascorbic Acid 500 mg 03/25/20 09:00 03/25/20 09:13 Ascorbic Acid 500 Mg Tablet PO Not Given DAILY REGINALDO Atorvastatin Calcium 20 mg 03/25/20 09:00 03/25/20 09:09 Atorvastatin Calcium 20 Mg Tablet PO 20 mg DAILY REGINALDO Administration Dexamethasone Sodium Phosphate 6 mg 03/25/20 09:00 03/25/20 09:13 Dexamethasone Sod Phosphate 4 Mg/Ml Vial IVPUSH 6 mg DAILY REGINALDO Administration Docusate Sodium 100 mg 03/24/20 17:56 Docusate Sodium 100 Mg Capsule PO DAILY PRN Constipation Fenofibrate 160 mg 03/25/20 09:00 03/25/20 09:09 Fenofibrate 160 Mg Tablet PO 160 mg DAILY REGINALDO Administration Lisinopril 40 mg 03/25/20 09:00 03/25/20 09:12 Lisinopril 40 Mg Tablet PO 40 mg DAILY REGINALDO Administration Protocol Metoprolol Succinate 25 mg 03/25/20 09:00 03/25/20 09:13 Metoprolol Succinate Er 25 Mg Tab.Er.24h PO 25 mg DAILY [facility] Administration Protocol Ondansetron HCl 4 mg 03/24/20 17:56 Ondansetron Hcl 4 Mg/2 Ml Vial IVPUSH Q8H PRN Nausea and Vomiting Pharmacy Consult 1 each 03/24/20 09:47 Consult Rx Perform Med Rec MISCELLANE ONCE PRN Consult order Sodium Chloride 3 ml 03/24/20 17:56 03/25/20 09:08 0.9 % Sodium Chloride Flush 3 Ml Syringe IVFLUSH 3 ml QSHIFT [facility] Administration Warfarin Sodium 2.5 mg 03/26/20 18:00 Warfarin Sodium 2.5 Mg Tablet PO SUTUTH@1800 [facility] Warfarin Sodium 1.25 mg 03/24/20 18:00 03/24/20 20:00 Warfarin Sodium 1.25 Mg Halftab PO 1.25 mg MOWEFRSA@1800 [facility] Administration Labs CBC & Chem 7: 03/25/20 04:25 03/25/20 04:25 Assessment and Plan (1) COVID-19: Status: Acute (2) Acute respiratory failure with hypoxia: Status: Acute Assessment and Plan: 84-year-old male history of atrial fibrillation on Coumadin, CKD, hypertension, dyslipidemia, restrictive lung disease who presents to the emergency department with shortness of breath found to have COVID-19 Acute respiratory failure with hypoxia COVID-19 pneumonia - continue supplemental oxygen via high flow -IV dexamethasone D2 -pulmonary consult -infectious disease consult Hypertension Continue Norvasc, lisinopril, metoprolol Atrial fibrillation Rate controlled Continue metoprolol Continue anticoagulation with Coumadin. INR today 2.7 Dyslipidemia Continue statin, fenofibrate DVT prophylaxis-Coumadin Code status-full code
--- NOTE | 2020-03-25 10:42 | CONS_ITS ---
DATE OF SERVICE: 03/25/2020 HISTORY OF PRESENT ILLNESS: This gentleman is 84-year-old male admitted since yesterday because of increasing shortness of breath. Recently, his was diagnosed to have COVID-19 who began symptoms about 1-1/2 week ago and has recovered. Mr. Us started having symptoms of cough with mild shortness of breath around March 18 and it has gradually progressed to the level that he is short of breath on room air. Denies any chest pain. Cough is mostly dry, nonproductive. He does not have much fever or chills. Evaluated in the emergency room and his O2 saturation was 80% on room air. He was slightly tachypneic. He had elevated inflammatory markers. CRP 8.67, LDH 426, and serum ferritin level 1492. Initially, the patient was requiring Ventimask, but now he is requiring high-flow oxygen. REVIEW OF SYSTEMS: Includes mainly respiratory symptoms as described above. He denies any chest pain or palpitations. Denies any abdominal pain, nausea, or vomiting, and denies any urinary symptoms. PAST MEDICAL HISTORY: Reviewed. The patient has moderate obesity but never evaluated for sleep apnea. He does not have any underlying pulmonary disease, but does have chronic dyspnea on exertion, and his previous chest x-ray has shown atelectasis of the right lung base. He has atrial fibrillation, on anticoagulation at this time. Chronic kidney disease. Hypertension. Hyperlipidemia. The patient is being followed for pulmonary nodule. SOCIAL HISTORY: The patient denies smoking at present. He did smoke many years ago. Denies any addictive drugs. PHYSICAL EXAMINATION: GENERAL: An 84-year-old gentleman, moderately obese, lying down in the bed with his high-flow oxygen at 50 up per minute. He is slightly dyspneic during conversation, but there is no sign of any distress. Respiratory rate is in mid 20s. EAR, NOSE, THROAT: Examination not performed. NECK: No JVD. Trachea midline. No lymphadenopathy. CHEST: Chest wall is obese. Percussion note resonant. Breath sounds are distant, especially over the basilar areas. There are few inspiratory crackles over the right base. No wheezes are heard. CARDIAC: PMI not palpable. Heart sounds are distant. Rhythm irregular but steady. No murmur or gallop is noted. ABDOMEN: Moderately obese, soft and nontender. EXTREMITIES: No edema or varicosities. Peripheral pulses normal. IMAGING: CT scan of the chest shows no significant infiltrates, but the volumes are small and there is general hypoventilation of the lower lobes. There is a nonspecific density in the right base suggesting atelectasis. CLINICAL IMPRESSION: As noted in the lab results, his COVID-19 test is positive, so he has acute COVID-19 infection. Acute respiratory failure with hypoxemia. Chronic right basilar atelectasis. Other medical history as noted above includes atrial fibrillation. The patient on anticoagulation, hypertension, chronic kidney disease, mild. RECOMMENDATION: I agree with current treatment including dexamethasone 6 mg IV daily for a course of 10 days. O2 by high-flow to keep O2 saturation above 90%. Encouraged the patient to do deep breathing exercises. If condition worsens, consider use of remdesivir and consultation with the infection disease service. Thank you very much for asking me to see this patient. Sincerely, MD IRAJ Cade/NEELAM / [phone]
--- NOTE | 2020-03-25 13:36 | MHC.CM.PN ---
pt lives c his in their home, he reports that he is independent in his care. his will provide transportation at dc. at this time the dc plan is for pt to return home c vna which he has requested and a ref. has been made. the dc plan may change and involve more care as the hospitalization requested. cm to cont. to follow.
[2020-03-25] MEDS: Warfarin Sodium 1.25 MG HALFTAB PO (17:54)
[2020-03-25 18:49] LABS: Alanine Aminotransferase 21 U/L (0-40); Albumin Level 3.7 g/dL (3.5-5.0); Alkaline Phosphatase 35 U/L (39-117); Aspartate Amino Transferase 31 U/L (5-37); Bilirubin Direct 0.3 mg/dL (0.0-0.5); Bilirubin Total 0.6 mg/dL (0.0-1.0); Total Protein 6.5 g/dL (6.5-8.0)
--- NOTE | 2020-03-25 23:15 | W.PM.IDCN ---
History of Present Illness Data of Consult Service Date: 03/25/20 Requesting physician: Toribio Quezada Primary Care Provider: Juan Andrea MD HPI Reason for consult: shortness of breath He presents with shortness of breath for 9 days. He has been eating out weekly at restaurants including [employer] He has otherwise tried to social distance He has no fever or chills but worsening hypoxia 50 l started Review of Systems Review of Systems: Yes all other systems are reviewed and are negative PMFSH Past Medical History Medical History Afib Atelectasis of right lung CKD (chronic kidney disease) stage 3, GFR 30-59 ml/min Dyspnea Ectatic thoracic aorta Gout HTN (hypertension) Hyperlipidemia Pulmonary nodules Functional capacity: independent ambulation Family History Family History Father Heart disease Mother Dementia Brother No problems noted. Family history: reviewed and not pertinent Surgical History Surgical History History of knee replacement procedure of left knee History of melanoma excision Social History Social History Household Members: Spouse Housing: House Alcohol intake: never Smoking Status: Former smoker Use of substances other than those prescribed or required for medical reasons: No Currently Displaying Signs/Symptoms of Drug Intoxication Withdrawal: No Any prior treatment program specific to substance use: No Have you been hit, kicked, punched, or otherwise hurt by someone within the past year? If so, by whom?: No Do you feel safe in your current relationship?: Yes Is there a partner from a previous relationship who is making you feel unsafe now?: No Are you made to feel afraid or neglected: No Advance Directives: No Advance Directives Information Provided: No Do you have thoughts of harming others: None Do you have a plan to hurt others: No Plan Recently lost weight without trying: No service: No Current occupational status: retired Meds Allergies Allergy/AdvReac Type Severity Reaction Status Date / Time No Known Allergies Allergy Verified 03/24/20 09:49 [No Known Allergies*] Home Medications Medication Instructions Recorded Confirmed Type amlodipine 5 mg tablet 5 mg PO DAILY 10/26/20 12/11/20 History ascorbate calcium (vitamin C) 500 500 mg PO DAILY 02/07/20 03/24/20 History mg tablet atorvastatin 20 mg tablet 20 mg PO DAILY 02/07/20 03/24/20 History fenofibrate nanocrystallized 145 145 mg PO DAILY 02/07/20 03/24/20 History mg tablet lisinopril 40 mg tablet 40 mg PO DAILY 02/07/20 03/24/20 History metoprolol succinate 25 mg 25 mg PO DAILY 02/07/20 03/24/20 History tablet,extended release 24 hr warfarin 1.25 mg PO MOWEFRSA@1800 03/24/20 03/24/20 History warfarin [Jantoven] 2.5 mg PO SUTUTH@1800 03/24/20 03/24/20 History Physical Exam Vital Signs: Vital Signs: Last Vital Signs Temp 97.9 F 03/25/20 19:37 Pulse 79 03/25/20 19:37 Resp 24 H 03/25/20 19:37 BP 139/72 03/25/20 19:37 Pulse Ox 90 L 03/25/20 22:00 Body Mass Index 29.5 Const: General: cooperative HENMT: Head: Yes normal to inspection Eyes: General: appearance normal, both eyes and all related structures Resp: Effort & Inspection: abnormal respiratory pattern Cardio: Rate: regular rate Rhythm: regular rhythm GI: Palpation (GI): nontender Skin: General skin exam: no rashes or lesions noted Assessment and Plan (1) Acute respiratory failure with hypoxia: Status: Acute (2) COVID-19: Problem details: He has COVID and has shortness of breath He has 7-8 days symptoms and rapidly increasing hypoxia Status: Acute Give Dexamethasone and Remdesivir Oxygen support Results Labs CBC & Chem 7: 03/25/20 04:25 03/25/20 04:25 Labs: Short CBC 03/25/20 Range/Units 04:25 WBC 4.6 L (4.8-10.8) X10*3/uL Hgb 15.0 (14.0-18.0) g/dl Hct 46.0 (42-52) % Plt Count 223 (160-400) X10*3/uL BMP 03/25/20 04:25 Sodium 140 Potassium 4.5 Chloride 108 Carbon Dioxide 22 BUN 20 H Creatinine 0.90 Calcium 7.9 L Liver Function 03/25/20 Range/Units 18:03 Total Bilirubin 0.6 (0.0-1.0) mg/dL Direct Bilirubin 0.3 (0.0-0.5) mg/dL AST 31 (5-37) U/L ALT 21 (0-40) U/L Alkaline Phosphatase 35 L (39-117) U/L Albumin 3.7 (3.5-5.0) g/dL Microbiology Microbiology Results: Microbiology 03/24/20 10:32 Blood - Venous Blood Culture - Preliminary No growth after 24 hours. 03/24/20 10:20 Blood - Venous Blood Culture - Preliminary No growth after 24 hours.
[2020-03-26] VITALS (11 sets, daily range): BP systolic 122–148; BP diastolic 70–84; PULSE 71–83; RESP 16–38; TEMP 36.1–36.6; O2SAT 88–91
[2020-03-26] MEDS: diphenhydrAMINE HCL 50 MG/ML VIAL 25 MG IVPUSH (02:34)
[2020-03-26 06:17] LABS: INTERNATIONAL NORM RATIO 3.8 (0.9-1.1); Prothrombin Time 46.2 SEC (10.8-13.0)
[2020-03-26] MEDS: Atorvastatin Calcium 20 MG TABLET PO (09:23)
[2020-03-26] MEDS: Fenofibrate 160 MG TABLET PO (09:23)
[2020-03-26] MEDS: dexAMETHasone sod phosphate 4 MG/ML VIAL 6 MG IVPUSH (09:23)
[2020-03-26] MEDS: Metoprolol Succinate ER 25 MG TAB.ER.24H PO (09:23)
[2020-03-26] MEDS: 0.9 % Sodium Chloride Flush 3 ML SYRINGE IVFLUSH ×3 (09:24→23:37)
[2020-03-26] MEDS: lisinopriL 40 MG TABLET PO (09:24)
[2020-03-26] MEDS: amLODIPine Besylate 5 MG TABLET PO (09:24)
[2020-03-26] MEDS: Ascorbic Acid 500 MG TABLET PO (09:27)
--- NOTE | 2020-03-26 09:35 | HO.PM.IMPN ---
Subjective Subjective Date of Service: 03/26/20 Interval History: Seen in f/u for COVID related acute hypoxic respiratory failure. Symptomatically, he feels better however oxygen level trending down and had to be titrated up on high flow O2,. Review of Systems Gen: no fever Resp: + sob, no cough CV: no chest, +Mclaughlin, no leg edema GI: No n/v, no abd pain Neuro: No confusion Physical Exam Vital Signs: Vital Signs: Last Vital Signs Temp 97.0 F 03/26/20 07:49 Pulse 80 03/26/20 07:49 Resp 18 03/26/20 08:10 BP 148/84 H 03/26/20 07:49 Pulse Ox 89 L 03/26/20 07:49 Body Mass Index 29.5 Const: Other: General: AO X 3, no acute, talk in full sentences Resp: No accessory muscle use, CVS: iregular GI: non tender Skin: No rash Neuro: motor grossly intact Psych: appropriate affect Objective Data Current Medications Generic Name Dose Route Start Last Admin Trade Name Gary PRN Reason Stop Dose Admin Acetaminophen 650 mg 03/24/20 17:56 Acetaminophen 325 Mg Tablet PO Q6H PRN Pain, Mild (Pain Scale 1-3) Amlodipine Besylate 5 mg 03/25/20 09:00 03/26/20 09:24 Amlodipine Besylate 5 Mg Tablet PO 5 mg DAILY REGINALDO Administration Protocol Ascorbic Acid 500 mg 03/25/20 09:00 03/26/20 09:27 Ascorbic Acid 500 Mg Tablet PO 500 mg DAILY REGINALDO Administration Atorvastatin Calcium 20 mg 03/25/20 09:00 03/26/20 09:23 Atorvastatin Calcium 20 Mg Tablet PO 20 mg DAILY REGINALDO Administration Dexamethasone Sodium Phosphate 6 mg 03/25/20 09:00 03/26/20 09:23 Dexamethasone Sod Phosphate 4 Mg/Ml Vial IVPUSH 6 mg DAILY REGINALDO Administration Docusate Sodium 100 mg 03/24/20 17:56 Docusate Sodium 100 Mg Capsule PO DAILY PRN Constipation Fenofibrate 160 mg 03/25/20 09:00 03/26/20 09:23 Fenofibrate 160 Mg Tablet PO 160 mg DAILY REGINALDO Administration Remdesivir 100 mg/ Sodium 250 mls @ 125 mls/hr 03/26/20 20:00 Chloride IV 03/29/20 21:59 Q24H REGINALDO Lisinopril 40 mg 03/25/20 09:00 03/26/20 09:24 Lisinopril 40 Mg Tablet PO 40 mg DAILY [facility] Administration Protocol Metoprolol Succinate 25 mg 03/25/20 09:00 03/26/20 09:23 Metoprolol Succinate Er 25 Mg Tab.Er.24h PO 25 mg DAILY REGINALDO Administration Protocol Ondansetron HCl 4 mg 03/24/20 17:56 Ondansetron Hcl 4 Mg/2 Ml Vial IVPUSH Q8H PRN Nausea and Vomiting Pharmacy Consult 1 each 03/24/20 09:47 Consult Rx Perform Med Rec MISCELLANE ONCE PRN Consult order Sodium Chloride 3 ml 03/24/20 17:56 03/26/20 09:24 0.9 % Sodium Chloride Flush 3 Ml Syringe IVFLUSH 3 ml QSHIFT [facility] Administration Warfarin Sodium 1.25 mg 03/24/20 18:00 03/25/20 17:54 Warfarin Sodium 1.25 Mg Halftab PO 1.25 mg MOWEFRSA@1800 [facility] Administration Labs CBC & Chem 7: 03/25/20 04:25 03/25/20 04:25 Microbiology Microbiology Results: Microbiology 03/24/20 10:32 Blood - Venous Blood Culture - Preliminary No growth after 24 hours. 03/24/20 10:20 Blood - Venous Blood Culture - Preliminary No growth after 24 hours. Assessment and Plan (1) COVID-19: Problem details: He has COVID and has shortness of breath He has 7-8 days symptoms and rapidly increasing hypoxia Status: Acute (2) Acute respiratory failure with hypoxia: Status: Acute Assessment and Plan: 84-year-old male history of atrial fibrillation on Coumadin, CKD, hypertension, dyslipidemia, restrictive lung disease who presents to the emergency department with shortness of breath found to have COVID-19 Acute respiratory failure with hypoxia which is getting worse COVID-19 pneumonia - continue supplemental oxygen via high flow and adjust to O2 sat of 90% -IV dexamethasone D2 -Remdesevir started 03/25 -pulmonary consult -infectious disease consult Hypertension Continue Norvasc, lisinopril, metoprolol Atrial fibrillation Rate controlled Continue metoprolol Continue anticoagulation with Coumadin. INR today 3.8, so hold coumadin Dyslipidemia Continue statin, fenofibrate DVT prophylaxis-Coumadin Code status-full code
[2020-03-26] MEDS: Remdesivir 100 MG in 0.9 % Sodium Chloride 230 ML 125 MG IV (20:57)
[2020-03-26] MEDS: Melatonin 3 MG TABLET PO (23:37)
[2020-03-27] VITALS (17 sets, daily range): BP systolic 111–164; BP diastolic 58–85; PULSE 74–94; RESP 15–39; TEMP 36.3–37.2; O2SAT 85–93
--- NOTE | 2020-03-27 | XR_ITS ---
EXAMINATION: XR CHEST CLINICAL INFORMATION: Follow-up chest. Covid positive. COMPARISON: Chest 03/24/2020 TECHNIQUE: Frontal view of the chest was obtained. FINDINGS: Lungs are well-expanded with patchy airspace disease left lung base and patchy opacity right lung base. There are bilateral increase interstitial markings. In size and pulmonary vascularity is normal. No gross bony abnormality seen. XR/XR chest 1V IMPRESSION: Slight increased airspace disease left lung base and patchy atelectasis right lung base. Mild prominent interstitial markings both lungs. The findings are new compared to 03/24/2020
[2020-03-27 07:21] LABS: INTERNATIONAL NORM RATIO 4.1 (0.9-1.1); Prothrombin Time 49.5 SEC (10.8-13.0)
[2020-03-27] MEDS: 0.9 % Sodium Chloride Flush 3 ML SYRINGE IVFLUSH ×3 (09:11→20:45)
[2020-03-27] MEDS: Morphine Sulfate 2 MG/ML CARTRIDGE IVPUSH ×4 (09:11→23:29)
[2020-03-27] MEDS: Metoprolol Succinate ER 25 MG TAB.ER.24H PO (09:11)
[2020-03-27] MEDS: Fenofibrate 160 MG TABLET PO (09:12)
[2020-03-27] MEDS: amLODIPine Besylate 5 MG TABLET PO (09:12)
[2020-03-27] MEDS: Atorvastatin Calcium 20 MG TABLET PO (09:12)
[2020-03-27] MEDS: lisinopriL 40 MG TABLET PO (09:12)
[2020-03-27] MEDS: dexAMETHasone sod phosphate 4 MG/ML VIAL 6 MG IVPUSH (09:14)
[2020-03-27] MEDS: Remdesivir 100 MG in 0.9 % Sodium Chloride 230 ML 125 MG IV (09:15)
[2020-03-27 09:59] LABS: Hematocrit 52.4 % (42-52); Hemoglobin 16.8 g/dl (14.0-18.0); Mean Corpuscular HGB Conc 32.1 g/dl (31.0-36.0); Mean Corpuscular Hemoglobin 29.4 pg (27.0-33.0); Mean Corpuscular Volume 91.6 fL (80-98); Mean Platelet Volume 12.5 fL (9.4-12.4); Platelet Count 199 X10*3/uL (160-400); Red Blood Count 5.72 X10*6/uL (4.60-5.80); Red Cell Distribution Width 16.1 % (11.0-16.0); White Blood Count 12.1 X10*3/uL (4.8-10.8)
[2020-03-27 10:25] LABS: Anion Gap 17 (12-20); Blood Urea Nitrogen 28 mg/dL (9-16); Calcium 8.3 mg/dL (8.4-10.2); Carbon Dioxide 24 mmol/L (22-29); Chloride 108 mmol/L (96-108); Estimated Glomerular Filt Rate > 60; Glucose Random 97 mg/dL (60-115); Potassium 4.7 mmol/l (3.3-5.1); Sodium 144 mmol/L (135-145)
[2020-03-27 10:50] LABS: Procalcitonin 0.04 ng/mL
[2020-03-27 11:37] LABS: D Dimer 238 NG/ML
[2020-03-27] MEDS: Ascorbic Acid 500 MG TABLET PO (12:40)
--- NOTE | 2020-03-27 14:19 | P.PNIM_ITS ---
Subjective Subjective Date of Service: 03/27/20 Interval History: seen and examined multiple times today reports not feeling bad despite significant hypoxia d/w him re: code status -- reports full code, would want to be intubated if needed ROS General - no fevers or chills Cardiovascular - no chest pain Respiratory- + sob Abdominal- no abdominal pain, nausea, vomiting, diarrhea Physical Exam Vital Signs: Vital Signs: Last Vital Signs Temp 98.9 F 03/27/20 12:00 Pulse 83 03/27/20 12:00 Resp 24 H 03/27/20 12:00 BP 164/85 H 03/27/20 12:00 Pulse Ox 86 L 03/27/20 12:00 Body Mass Index 29.5 Const: Other: General - no significant distress Cardiovascular - regular rate and rhythm, S1-S2 Lungs - minor resp. distress with rates low 20s, sounds diminished Abdomen - soft, nontender, no rebound or guarding Extremities - no edema bilaterally Neuro - awake and alert, no focal deficits Objective Data Current Medications Generic Name Dose Route Start Last Admin Trade Name Gary PRN Reason Stop Dose Admin Acetaminophen 650 mg 03/24/20 17:56 Acetaminophen 325 Mg Tablet PO Q6H PRN Pain, Mild (Pain Scale 1-3) Albuterol Sulfate 2 puff 03/26/20 14:54 Albuterol Sulfate 90 Mcg 8 Gm Inhaler INHALE Q2H PRN Shortness of Breath Amlodipine Besylate 5 mg 03/25/20 09:00 03/27/20 09:12 Amlodipine Besylate 5 Mg Tablet PO 5 mg DAILY REGINALDO Administration Protocol Ascorbic Acid 500 mg 03/25/20 09:00 03/27/20 12:40 Ascorbic Acid 500 Mg Tablet PO 500 mg DAILY REGINALDO Administration Atorvastatin Calcium 20 mg 03/25/20 09:00 03/27/20 09:12 Atorvastatin Calcium 20 Mg Tablet PO 20 mg DAILY REGINALDO Administration Dexamethasone Sodium Phosphate 6 mg 03/25/20 09:00 03/27/20 09:14 Dexamethasone Sod Phosphate 4 Mg/Ml Vial IVPUSH 6 mg DAILY REGINALDO Administration Docusate Sodium 100 mg 03/24/20 17:56 Docusate Sodium 100 Mg Capsule PO DAILY PRN Constipation Fenofibrate 160 mg 03/25/20 09:00 03/27/20 09:12 Fenofibrate 160 Mg Tablet PO 160 mg DAILY REGINALDO Administration Remdesivir 100 mg/ Sodium 250 mls @ 125 mls/hr 03/27/20 09:00 03/27/20 09:15 Chloride IV 03/30/20 10:59 125 mls/hr Q24H REGINALDO Administration Lisinopril 40 mg 03/25/20 09:00 03/27/20 09:12 Lisinopril 40 Mg Tablet PO 40 mg DAILY REGINALDO Administration Protocol Melatonin 3 mg 03/26/20 21:23 03/26/20 23:37 Melatonin 3 Mg Tablet PO 3 mg BEDTIME PRN Administration Sleep Metoprolol Succinate 25 mg 03/25/20 09:00 03/27/20 09:11 Metoprolol Succinate Er 25 Mg Tab.Er.24h PO 25 mg DAILY REGINALDO Administration Protocol Morphine Sulfate 2 mg 03/27/20 12:48 Morphine Sulfate 2 Mg/Ml Cartridge IVPUSH Q2H PRN respiratory distress Ondansetron HCl 4 mg 03/24/20 17:56 Ondansetron Hcl 4 Mg/2 Ml Vial IVPUSH Q8H PRN Nausea and Vomiting Pharmacy Consult 1 each 03/24/20 09:47 Consult Rx Perform Med Rec MISCELLANE ONCE PRN Consult order Sodium Chloride 3 ml 03/24/20 17:56 03/27/20 09:11 0.9 % Sodium Chloride Flush 3 Ml Syringe IVFLUSH 3 ml QSHIFT REGINALDO Administration Labs CBC & Chem 7: 03/27/20 09:41 03/27/20 09:41 Microbiology Microbiology Results: Microbiology 03/24/20 10:32 Blood - Venous Blood Culture - Preliminary No growth after 48 hours. 03/24/20 10:20 Blood - Venous Blood Culture - Preliminary No growth after 48 hours. Assessment and Plan (1) Acute respiratory failure with hypoxia: Status: Acute Assessment and Plan: This is a 84-year-old male with a history of chronic lung disease who presents to the hospital with shortness of breath and is diagnosed with COVID-19 p neumonia and acute respiratory failure with hypoxia 1. Acute respiratory failure with hypoxia due to COVID-19 O2 requirements continued to worsen, now on high-flow plus 100% non-rebreather On remdesivir and Decadron Give a dose of IV Lasix IV morphine p.r.n. for respiratory distress Repeat chest x-ray if any concerns for infiltrates will start doxy Informed Pulmonary/ICU, will be seeing the patient today 2. Atrial fibrillation Continue metoprolol Continue holding INR increasing 3. Hypertension Uncontrolled Continue Norvasc, lisinopril, metoprolol 4. Hyperlipidemia Continue home meds Full code DVT prophylaxis, Coumadin Discussed with the patient regarding his code status and he confirms that he would want a trial of intubation should his respiratory status decline. Discussed with his on the telephone, updates given.
[2020-03-27] MEDS: Furosemide 40 MG/4 ML VIAL IVPUSH (15:27)
[2020-03-27] MEDS: Doxycycline Hyclate 100 MG in 0.9 % Sodium Chloride 250 ML 166.67 MG IV (17:41)
--- NOTE | 2020-03-27 20:35 | PC.NURSE ---
assumed care at 0700. patient had spo2 of 81-84% at that time, rr in 30-40 range while on nrb and on hi carol 100% combined. patient repositioned, proned to right side (refuses to prone onto left side); discussed with md, new order for one time, then prn morphine q2 hrs as needed wob/sob, administered with good effect. patint now rr 17-27 range, decreased wob, often spo2 89%, but much of day 90-93%.
[2020-03-27] MEDS: Melatonin 3 MG TABLET PO (20:45)
[2020-03-28] VITALS (11 sets, daily range): BP systolic 121–155; BP diastolic 70–79; PULSE 64–87; RESP 20–33; TEMP 36.3–37; O2SAT 87–92
[2020-03-28] MEDS: Morphine Sulfate 2 MG/ML CARTRIDGE IVPUSH ×2 (02:35→05:29)
[2020-03-28] MEDS: Doxycycline Hyclate 100 MG in 0.9 % Sodium Chloride 250 ML 166.67 MG IV ×2 (05:29→18:26)
[2020-03-28 07:07] LABS: Hematocrit 50.2 % (42-52); Hemoglobin 16.8 g/dl (14.0-18.0); Mean Corpuscular HGB Conc 33.5 g/dl (31.0-36.0); Mean Corpuscular Hemoglobin 30.2 pg (27.0-33.0); Mean Corpuscular Volume 90.1 fL (80-98); Platelet Count 333 X10*3/uL (160-400); Red Blood Count 5.57 X10*6/uL (4.60-5.80); Red Cell Distribution Width 15.9 % (11.0-16.0); White Blood Count 15.8 X10*3/uL (4.8-10.8)
[2020-03-28 07:25] LABS: INTERNATIONAL NORM RATIO 4.9 (0.9-1.1); Prothrombin Time 59.3 SEC (10.8-13.0)
[2020-03-28 07:48] LABS: Anion Gap 18 (12-20); Blood Urea Nitrogen 43 mg/dL (9-16); Carbon Dioxide 21 mmol/L (22-29); Chloride 109 mmol/L (96-108); Creatinine Clr Calc Pharmacy 55.8; Estimated Glomerular Filt Rate > 60; Glucose Random 117 mg/dL (60-115); Potassium 4.4 mmol/l (3.3-5.1); Sodium 144 mmol/L (135-145)
[2020-03-28] MEDS: dexAMETHasone sod phosphate 4 MG/ML VIAL 6 MG IVPUSH (08:11)
[2020-03-28] MEDS: 0.9 % Sodium Chloride Flush 3 ML SYRINGE IVFLUSH ×3 (08:11→23:33)
--- NOTE | 2020-03-28 08:12 | HO.PM.IMPN ---
Subjective Subjective Date of Service: 03/28/20 Interval History: seen and examined this AM reports feeling better despite low o2 ROS General - no fevers or chills Cardiovascular - no chest pain Respiratory- + sob Abdominal- no abdominal pain, nausea, vomiting, diarrhea Physical Exam Vital Signs: Vital Signs: Last Vital Signs Temp 98.3 F 03/28/20 07:40 Pulse 80 03/28/20 07:40 Resp 20 03/28/20 07:40 BP 121/70 03/28/20 07:40 Pulse Ox 87 L 03/28/20 07:40 Body Mass Index 29.5 Const: Other: General - no significant distress Cardiovascular - regular rate and rhythm, S1-S2 Lungs - dim sounds, mild distress Abdomen - soft, nontender, no rebound or guarding Extremities - no edema bilaterally Neuro - awake and alert, no focal deficits Objective Data Current Medications Generic Name Dose Route Start Last Admin Trade Name Freq PRN Reason Stop Dose Admin Acetaminophen 650 mg 03/24/20 17:56 Acetaminophen 325 Mg Tablet PO Q6H PRN Pain, Mild (Pain Scale 1-3) Albuterol Sulfate 2 puff 03/26/20 14:54 Albuterol Sulfate 90 Mcg 8 Gm Inhaler INHALE Q2H PRN Shortness of Breath Amlodipine Besylate 5 mg 03/25/20 09:00 03/27/20 09:12 Amlodipine Besylate 5 Mg Tablet PO 5 mg DAILY REGINALDO Administration Protocol Ascorbic Acid 500 mg 03/25/20 09:00 03/27/20 12:40 Ascorbic Acid 500 Mg Tablet PO 500 mg DAILY REGIANLDO Administration Atorvastatin Calcium 20 mg 03/25/20 09:00 03/27/20 09:12 Atorvastatin Calcium 20 Mg Tablet PO 20 mg DAILY REGINALDO Administration Dexamethasone Sodium Phosphate 6 mg 03/25/20 09:00 03/27/20 09:14 Dexamethasone Sod Phosphate 4 Mg/Ml Vial IVPUSH 6 mg DAILY REGINALDO Administration Docusate Sodium 100 mg 03/24/20 17:56 Docusate Sodium 100 Mg Capsule PO DAILY PRN Constipation Fenofibrate 160 mg 03/25/20 09:00 03/27/20 09:12 Fenofibrate 160 Mg Tablet PO 160 mg DAILY REGINALDO Administration Remdesivir 100 mg/ Sodium 250 mls @ 125 mls/hr 03/27/20 09:00 03/27/20 15:28 Chloride IV 03/30/20 10:59 Infused Q24H REGINALDO Infusion Doxycycline Hyclate 100 mg/ 250 mls @ 166.67 mls/hr 03/27/20 18:00 03/28/20 07:32 Sodium Chloride IV Infused Q12H REGINALDO Infusion Lisinopril 40 mg 03/25/20 09:00 03/27/20 09:12 Lisinopril 40 Mg Tablet PO 40 mg DAILY REGINALDO Administration Protocol Melatonin 3 mg 03/26/20 21:23 03/27/20 20:45 Melatonin 3 Mg Tablet PO 3 mg BEDTIME PRN Administration Sleep Metoprolol Succinate 25 mg 03/25/20 09:00 03/27/20 09:11 Metoprolol Succinate Er 25 Mg Tab.Er.24h PO 25 mg DAILY REGINALDO Administration Protocol Morphine Sulfate 2 mg 03/27/20 12:48 03/28/20 05:29 Morphine Sulfate 2 Mg/Ml Cartridge IVPUSH 2 mg Q2H PRN Administration respiratory distress Ondansetron HCl 4 mg 03/24/20 17:56 Ondansetron Hcl 4 Mg/2 Ml Vial IVPUSH Q8H PRN Nausea and Vomiting Pharmacy Consult 1 each 03/24/20 09:47 Consult Rx Perform Med Rec MISCELLANE ONCE PRN Consult order Sodium Chloride 3 ml 03/24/20 17:56 03/27/20 20:45 0.9 % Sodium Chloride Flush 3 Ml Syringe IVFLUSH 3 ml QSHIFT REGINALDO Administration Labs CBC & Chem 7: 03/28/20 06:37 03/28/20 06:37 Microbiology Microbiology Results: Microbiology 03/24/20 10:32 Blood - Venous Blood Culture - Preliminary No growth after 48 hours. 03/24/20 10:20 Blood - Venous Blood Culture - Preliminary No growth after 48 hours. Assessment and Plan (1) Acute respiratory failure with hypoxia: Status: Acute Assessment and Plan: This is a 84-year-old male with a history of chronic lung disease who presents to the hospital with shortness of breath and is diagnosed with COVID-19 pneumonia and acute respiratory failure with hypoxia 1. Acute respiratory failure with hypoxia due to COVID-19 O2 requirements remain high On remdesivir (day 3/5), decadron (day 4/10), doxy (day 2) IV morphine p.r.n. for respiratory distress Pulmonary Following 2. Atrial fibrillation Continue metoprolol Continue holding INR increasing 3. Hypertension BP improved, on the lower side today; hold antihypertensives this AM observe 4. Hyperlipidemia Continue home meds Full code DVT prophylaxis, Coumadin
[2020-03-28] MEDS: Metoprolol Succinate ER 25 MG TAB.ER.24H PO (08:16)
[2020-03-28] MEDS: Atorvastatin Calcium 20 MG TABLET PO (08:16)
[2020-03-28] MEDS: Fenofibrate 160 MG TABLET PO (08:16)
[2020-03-28] MEDS: lisinopriL 40 MG TABLET PO (08:16)
[2020-03-28] MEDS: amLODIPine Besylate 5 MG TABLET PO (08:16)
[2020-03-28] MEDS: Ascorbic Acid 500 MG TABLET PO (08:16)
[2020-03-28] MEDS: Remdesivir 100 MG in 0.9 % Sodium Chloride 230 ML 125 MG IV (09:31)
--- NOTE | 2020-03-28 14:47 | MHC.CLN ---
RE: CONSULT POOR PO INTAKE WILL START ENSURE TID TO INCREASE [facility] MONITOR PO AND SUPPLEMENT ACCEPTANCE CLOSELY
--- NOTE | 2020-03-28 20:05 | PC.NURSE ---
AT START OF SHIFT PATIENTS 02 NOTED TO BE 85% ON 100% HIGH FLOW AND NRB. MD NOTIFIED AND ARRIVED BEDSIDE. DISCUSSED POSSIBLE INTUBATION IF 02 CONTINUES TO DECLINE. PATIENT AGREES TO BE INTUBATED IF NEEDED. WITH REPOSITIONING AND ENCOURAGED BREATHING 02 IMPROVED. THROUGHOUT SHIFT 02 88-91%. UPDATED BY THIS RN X 2.
[2020-03-29] VITALS (19 sets, daily range): BP systolic 123–160; BP diastolic 75–92; PULSE 76–102; RESP 19–33; TEMP 36.3–36.8; O2SAT 80–96
--- NOTE | 2020-03-29 | XR_ITS ---
EXAMINATION: XR CHEST CLINICAL INFORMATION: Covid follow-up COMPARISON: March 27, 2020 TECHNIQUE: AP portable view of the chest was obtained. FINDINGS: There are again noted to be scattered regions of interstitial and airspace disease without significant change from prior study. There is elevation of the right hemidiaphragm. No pneumothorax or significant pleural effusion is appreciated. The cardiopericardial silhouette is mildly enlarged. XR/XR chest 1V IMPRESSION: No significant change from prior days study.
[2020-03-29] MEDS: Melatonin 3 MG TABLET PO (02:15)
[2020-03-29] MEDS: Doxycycline Hyclate 100 MG in 0.9 % Sodium Chloride 250 ML 166.67 MG IV (05:30)
[2020-03-29] MEDS: Remdesivir 100 MG in 0.9 % Sodium Chloride 230 ML 125 MG IV (07:55)
[2020-03-29] MEDS: Fenofibrate 160 MG TABLET PO (07:56)
[2020-03-29] MEDS: dexAMETHasone sod phosphate 4 MG/ML VIAL 6 MG IVPUSH (07:56)
[2020-03-29] MEDS: 0.9 % Sodium Chloride Flush 3 ML SYRINGE IVFLUSH ×3 (07:56→23:45)
[2020-03-29] MEDS: Atorvastatin Calcium 20 MG TABLET PO (07:56)
[2020-03-29] MEDS: Ascorbic Acid 500 MG TABLET PO (07:57)
[2020-03-29] MEDS: Morphine Sulfate 2 MG/ML CARTRIDGE IVPUSH ×4 (08:04→23:45)
[2020-03-29 09:31] LABS: Prothrombin Time 71.5 SEC (10.8-13.0)
[2020-03-29 09:35] LABS: Anion Gap 16 (12-20); Blood Urea Nitrogen 39 mg/dL (9-16); Calcium 8.3 mg/dL (8.4-10.2); Carbon Dioxide 22 mmol/L (22-29); Chloride 110 mmol/L (96-108); Estimated Glomerular Filt Rate > 60; Glucose Random 103 mg/dL (60-115); Potassium 4.7 mmol/l (3.3-5.1); Sodium 143 mmol/L (135-145)
[2020-03-29] MEDS: Furosemide 40 MG/4 ML VIAL IVPUSH (10:29)
[2020-03-29 10:39] LABS: INTERNATIONAL NORM RATIO 5.9 (0.9-1.1)
[2020-03-29 10:44] LABS: Hematocrit 50.5 % (42-52); Hemoglobin 16.8 g/dl (14.0-18.0); Mean Corpuscular HGB Conc 33.3 g/dl (31.0-36.0); Mean Corpuscular Hemoglobin 29.8 pg (27.0-33.0); Mean Corpuscular Volume 89.5 fL (80-98); Platelet Count 227 X10*3/uL (160-400); Red Blood Count 5.64 X10*6/uL (4.60-5.80); Red Cell Distribution Width 15.9 % (11.0-16.0)
--- NOTE | 2020-03-29 10:56 | HO.PM.IMPN ---
Subjective Subjective Date of Service: 03/29/20 Interval History: seen and examined this AM reports feeling the same took him off 100% NRMB while talking to him and he was able to maintain sats in the 89-92 range with high flow alone and talk without much distress, however sats drop into the mid 80s with movement unable to tolerate full prone, able to say on one side ROS General - no fevers or chills Cardiovascular - no chest pain Respiratory- + sob Abdominal- no abdominal pain, nausea, vomiting, diarrhea Physical Exam Vital Signs: Vital Signs: Last Vital Signs Temp 97.4 F 03/29/20 07:31 Pulse 88 03/29/20 07:31 Resp 27 H 03/29/20 10:30 BP 151/79 H 03/29/20 07:31 Pulse Ox 87 L 03/29/20 07:31 Body Mass Index 29.5 Const: Other: General - no significant distress Cardiovascular - regular rate and rhythm, S1-S2 Lungs - dim sounds, distress with any exertion, Abdomen - soft, nontender, no rebound or guarding Extremities - no edema bilaterally Neuro - awake and alert, no focal deficits Objective Data Current Medications Generic Name Dose Route Start Last Admin Trade Name Freq PRN Reason Stop Dose Admin Acetaminophen 650 mg 03/24/20 17:56 Acetaminophen 325 Mg Tablet PO Q6H PRN Pain, Mild (Pain Scale 1-3) Albuterol Sulfate 2 puff 03/26/20 14:54 Albuterol Sulfate 90 Mcg 8 Gm Inhaler INHALE Q2H PRN Shortness of Breath Ascorbic Acid 500 mg 03/25/20 09:00 03/29/20 07:57 Ascorbic Acid 500 Mg Tablet PO 500 mg DAILY REGINALDO Administration Atorvastatin Calcium 20 mg 03/25/20 09:00 03/29/20 07:56 Atorvastatin Calcium 20 Mg Tablet PO 20 mg DAILY REGINALDO Administration Dexamethasone Sodium Phosphate 6 mg 03/25/20 09:00 03/29/20 07:56 Dexamethasone Sod Phosphate 4 Mg/Ml Vial IVPUSH 6 mg DAILY REGINALDO Administration Docusate Sodium 100 mg 03/24/20 17:56 Docusate Sodium 100 Mg Capsule PO DAILY PRN Constipation Fenofibrate 160 mg 03/25/20 09:00 03/29/20 07:56 Fenofibrate 160 Mg Tablet PO 160 mg DAILY REGINALDO Administration Remdesivir 100 mg/ Sodium 250 mls @ 125 mls/hr 03/27/20 09:00 03/29/20 10:30 Chloride IV 03/30/20 10:59 Infused Q24H REGINALDO Infusion Doxycycline Hyclate 100 mg/ 250 mls @ 166.67 mls/hr 03/27/20 18:00 03/29/20 07:00 Sodium Chloride IV Infused Q12H REGINALDO Infusion Melatonin 3 mg 03/26/20 21:23 03/29/20 02:15 Melatonin 3 Mg Tablet PO 3 mg BEDTIME PRN Administration Sleep Morphine Sulfate 2 mg 03/27/20 12:48 03/29/20 08:04 Morphine Sulfate 2 Mg/Ml Cartridge IVPUSH 2 mg Q2H PRN Administration respiratory distress Ondansetron HCl 4 mg 03/24/20 17:56 Ondansetron Hcl 4 Mg/2 Ml Vial IVPUSH Q8H PRN Nausea and Vomiting Pharmacy Consult 1 each 03/24/20 09:47 Consult Rx Perform Med Rec MISCELLANE ONCE PRN Consult order Sodium Chloride 3 ml 03/24/20 17:56 03/29/20 07:56 0.9 % Sodium Chloride Flush 3 Ml Syringe IVFLUSH 3 ml QSHIFT REGINALDO Administration Labs CBC & Chem 7: 03/28/20 06:37 03/29/20 08:35 Microbiology Microbiology Results: Microbiology 03/24/20 10:32 Blood - Venous Blood Culture - Preliminary No growth after 48 hours. 03/24/20 10:20 Blood - Venous Blood Culture - Preliminary No growth after 48 hours. Assessment and Plan (1) Acute respiratory failure with hypoxia: Status: Acute Assessment and Plan: This is a 84-year-old male with a history of chronic lung disease who presents to the hospital with shortness of breath and is diagnosed with COVID-19 pneumonia and acute respiratory failure with hypoxia 1. Acute respiratory failure with hypoxia due to COVID-19 O2 requirements remain high On remdesivir (day 4/5), decadron (day 5/10), doxy (day 3) IV morphine p.r.n. for respiratory distress ICU following give lasix 40mg today repeat cxr f/u labs / inflammatory markers 2. Atrial fibrillation Continue metoprolol Continue holding INR increasing 3. Hypertension restart norvasc, hold lisinopril 4. Hyperlipidemia Continue home meds Full code DVT prophylaxis, Coumadin
[2020-03-29 11:07] LABS: Procalcitonin 0.04 ng/mL
[2020-03-29] MEDS: amLODIPine Besylate 5 MG TABLET PO (11:34)
[2020-03-29 11:42] LABS: Alanine Aminotransferase 22 U/L (0-40); Albumin Level 3.5 g/dL (3.5-5.0); Alkaline Phosphatase 65 U/L (39-117); Aspartate Amino Transferase 27 U/L (5-37); Bilirubin Direct 0.7 mg/dL (0.0-0.5); Bilirubin Total 1.4 mg/dL (0.0-1.0); C Reactive Protein 5.66 mg/dL (< or = 0.50); Total Protein 6.2 g/dL (6.5-8.0)
--- NOTE | 2020-03-29 14:05 | MHC.CM.PN ---
EMR reviewed; MD report from rounds: Pt continues on isolation unit with +COVID: on high flow O2 - unable to wean at this time - notes state pt desats into the 80's with slight activity off of high flow. day 4 of Remdesivir: No plans to d/c - original d/c plan was for a return to home with spouse and [facility]: unknown if this plan will be appropriate. CM to follow for O2 wean and better assessment of physical functioning.
[2020-03-30] VITALS (32 sets, daily range): BP systolic 111–150; BP diastolic 60–86; PULSE 76–95; RESP 19–43; TEMP 36.6–37.7; O2SAT 86–98
[2020-03-30 06:02] LABS: Hemoglobin 17.5 g/dl (14.0-18.0); Mean Corpuscular Hemoglobin 30.1 pg (27.0-33.0); Mean Corpuscular Volume 91.2 fL (80-98); Mean Platelet Volume 11.3 fL (9.4-12.4); Platelet Count 230 X10*3/uL (160-400); Red Blood Count 5.81 X10*6/uL (4.60-5.80); Red Cell Distribution Width 16.3 % (11.0-16.0); White Blood Count 21.2 X10*3/uL (4.8-10.8)
[2020-03-30 06:11] LABS: pH VBG 7.52 (7.32-7.43)
[2020-03-30 06:12] LABS: Base Excess VBG 0.7 mmol/L; HCO3 VBG 22 mmol/L; Oxygen Saturation VBG 84.3 %; PCO2 VBG 27 mmhg; PO2 VBG 47 mmhg
[2020-03-30 06:18] LABS: Prothrombin Time 75.9 SEC (10.8-13.0)
[2020-03-30 06:23] LABS: Albumin Level 3.3 g/dL (3.5-5.0); Anion Gap 20 (12-20); Blood Urea Nitrogen 57 mg/dL (9-16); Calcium 8.2 mg/dL (8.4-10.2); Carbon Dioxide 17 mmol/L (22-29); Chloride 111 mmol/L (96-108); Estimated Glomerular Filt Rate > 60; Glucose Random 154 mg/dL (60-115); Magnesium 2.7 mg/dL (1.6-2.6); Phosphorus 4.1 mg/dL (2.7-4.5); Potassium 4.6 mmol/l (3.3-5.1); Sodium 143 mmol/L (135-145)
[2020-03-30 06:28] LABS: INTERNATIONAL NORM RATIO 6.3 (0.9-1.1)
[2020-03-30] MEDS: Atorvastatin Calcium 20 MG TABLET PO (08:05)
[2020-03-30] MEDS: amLODIPine Besylate 5 MG TABLET PO (08:05)
[2020-03-30] MEDS: 0.9 % Sodium Chloride Flush 3 ML SYRINGE IVFLUSH ×2 (08:06→15:39)
[2020-03-30] MEDS: dexAMETHasone sod phosphate 4 MG/ML VIAL 6 MG IVPUSH (08:06)
--- NOTE | 2020-03-30 10:09 | MHC.CM.PN ---
Per MD rounds, pt showing some improvement today with high flow at 60%, after being on CPAP last night. Last dose of Remdesivir today. Possible transfer to [facility] with recommendations for CPAP over night. D/C plan pending pt recovery and level of de-conditioning s/p recovery. Will follow for d/c needs
[2020-03-30] MEDS: Remdesivir 100 MG in 0.9 % Sodium Chloride 230 ML 125 MG IV (10:24)
--- NOTE | 2020-03-30 14:31 | P.PNCC_ITS ---
Subjective Subjective Date of Service: 03/30/20 Interval History: 84-year-old gentleman with underlying history of AFib on anticoagulation, CKD stage 3, hypertension admitted on 03/24/2020 with hypoxemia secondary to COVID-19. Hospital course significant for progressive hypoxemia and escalating FiO2 requirements, up to requiring noninvasive positive pressure ventilation. Treated with remdesivir and dexamethasone. Hospital course further complicated by progressive coagulopathy. No events overnight. Physical Exam Vital Signs: Vital Signs: Last Vital Signs Temp 99.7 F 03/30/20 14:00 Pulse 93 03/30/20 14:00 Resp 36 H 03/30/20 14:00 BP 130/64 03/30/20 14:00 Pulse Ox 86 L 03/30/20 14:00 Body Mass Index 29.5 Const: General: no acute distress, alert and awake Eyes: Sclerae: sclerae normal EOM: EOMs intact bilaterally Neck: Neck: Yes no lymphadenopathy, Yes trachea midline and Yes supple Resp: Auscultation: crackles (Diffuse bilateral) Cardio: Rate: regular rate Rhythm: regular rhythm Heart sounds: no gallops, no murmurs and no rubs GI: Palpation (GI): Soft to palpation and Other GI palpation findings present ( Nontender) Auscultation: normal bowel sounds Extrem: General: No clubbing, No cyanosis and Yes edema (Trace bilateral) Objective Data Labs CBC & Chem 7: 03/30/20 05:29 03/30/20 05:29 Labs: Laboratory Results - last 24 hr 03/30/20 03/30/20 03/30/20 05:29 05:29 05:29 WBC 21.2 H RBC 5.81 H Hgb 17.5 Hct 53.0 H MCV 91.2 MCH 30.1 MCHC 33.0 RDW 16.3 H Plt Count 230 MPV 11.3 Absolute Nucleated RBC 0.000 Nucleated RBC % (auto) 0.0 PT 75.9 H INR 6.3 H* VBG pH VBG pCO2 VBG pO2 VBG HCO3 VBG O2 Saturation VBG Base Excess Sodium 143 Potassium 4.6 Chloride 111 H Carbon Dioxide 17 L Anion Gap 20 BUN 57 H Creatinine 1.16 Estim Creat Clear Calc 53.0 Estimated GFR > 60 Random Glucose 154 H D Calcium 8.2 L Phosphorus 4.1 Magnesium 2.7 H Albumin 3.3 L 03/30/20 03/30/20 05:29 05:29 WBC RBC Hgb Hct MCV MCH MCHC RDW Plt Count MPV Absolute Nucleated RBC Nucleated RBC % (auto) PT INR VBG pH 7.52 H VBG pCO2 27 VBG pO2 47 VBG HCO3 22 VBG O2 Saturation 84.3 VBG Base Excess 0.7 Sodium Potassium Chloride Carbon Dioxide Anion Gap BUN Creatinine Estim Creat Clear Calc Estimated GFR Random Glucose Calcium Phosphorus Cancelled Magnesium Cancelled Albumin Cancelled Microbiology Microbiology Results: Microbiology 03/24/20 10:32 Blood - Venous Blood Culture - Final No growth after 5 days. 03/24/20 10:20 Blood - Venous Blood Culture - Final No growth after 5 days. Progress Note: A&P Assessment and plan (1) Acute respiratory distress syndrome (ARDS) due to COVID-19 virus: Status: Acute Assessment and Plan: Assessment: Acute hypoxic respiratory failure secondary to COVID-19 ARDS further complicated by coagulopathy and acute renal failure. Now requiring yuliana nvasive positive pressure ventilation. Plan: Neuro: No acute issues. Cardiac: No acute issues. Pulmonary: Acute hypoxic respiratory failure secondary to COVID-19 related ARDS. Now requiring noninvasive positive pressure ventilation. Continue to titrate off as tolerated. Completing remdesivir. Continue dexamethasone. Renal: Acute renal failure secondary to COVID-19. Non oliguric. Continue to monitor renal indices and urine output. Endo: No acute issues. GI: No acute issues. ID: No acute issues Heme/Onc: Progressive coagulopathy, likely secondary to COVID-19 related of end-organ damage. Started on vitamin K. Continue to monitor INR. Continue to monitor hemoglobin. Psych: No acute issues. Miscellaneous: No acute issues. Prophylaxis: Coagulopathic Diet: Regular Critical care time spent: 60 minutes (2) Acute respiratory failure with hypoxia: Status: Acute (3) Coagulopathy: Status: Acute (4) Acute renal failure: Status: Acute Time Spent With Patient Total time spent with greater than 50% in coordination of care (as documented) at patient's floor/unit and/or counseling patient:: 0 Critical Care Time Critical Care Time (minutes): 60
[2020-03-30] MEDS: Morphine Sulfate 2 MG/ML CARTRIDGE IVPUSH (15:30)
[2020-03-30] MEDS: Furosemide 20 MG/2 ML VIAL IVPUSH (15:33)
[2020-03-30] MEDS: Phytonadione (Vit K1) 10 MG in 0.9 % Sodium Chloride 50 ML 51 MG IV (16:03)
--- NOTE | 2020-03-30 18:49 | PC.NURSE ---
Assumed care at 0700 - Patient on CPAP of 10 70% Fio2 - patient transitioned to both highflow 80% and NRB - patient stable and able to tolerate both breakfast and lunch well - Patient bathed and repositioned and maintaining sat 84% - Patient placed back on CPAP at 1300 - sat up to 91%. 1430 - patient work up and ripped Cpap mask off, labored breathing, anxious, tachypneic, o2 sat down to high 60's. This RN at bedside - Cpap mask reapplied and Fio2 increased to 100%, Morphine 2mg IVP administered with effectiveness - O2 up to 90's, patient calm and resting with eyes closed - MD notified of event. Family updated. Handoff given to Rafaela CAMERON.
[2020-03-31] VITALS (33 sets, daily range): BP systolic 97–156; BP diastolic 7–107; PULSE 76–101; RESP 16–44; TEMP 36.7–37.2; O2SAT 85–99
[2020-03-31] MEDS: Morphine Sulfate 2 MG/ML CARTRIDGE IVPUSH ×3 (04:36→19:07)
[2020-03-31 05:51] LABS: Basophils Percent Auto 0.2 % (0-2); Hemoglobin 18.4 g/dl (14.0-18.0); Imm Gran Abs Auto 0.24 X10*3/uL (0.00-0.03); Lymphocytes Absolute Auto 0.9 X10*3/uL (1.2-4.9); Mean Corpuscular HGB Conc 33.2 g/dl (31.0-36.0); Mean Corpuscular Hemoglobin 29.8 pg (27.0-33.0); Mean Platelet Volume 12.2 fL (9.4-12.4); Monocytes Absolute Auto 1.2 X10*3/uL (0.1-1.2); Monocytes Percent Auto 5.1 % (2-11); Neutrophils Absolute Auto 20.7 X10*3/uL (2.0-8.3); Neutrophils Percent Auto 89.7 % (45-73); Platelet Count 156 X10*3/uL (160-400); Red Blood Count 6.17 X10*6/uL (4.60-5.80); SCAN SMEAR FLAG 1; White Blood Count 23.1 X10*3/uL (4.8-10.8)
[2020-03-31 05:52] LABS: MANUAL DIFF FLAG NO
[2020-03-31 05:56] LABS: Base Excess VBG 1.1 mmol/L; HCO3 VBG 26 mmol/L; Oxygen Saturation VBG 70.1 %; PCO2 VBG 44 mmhg; PO2 VBG 39 mmhg
[2020-03-31 05:59] LABS: INTERNATIONAL NORM RATIO 1.6 (0.9-1.1)
[2020-03-31 06:01] LABS: Hematocrit 55.5 % (42-52)
[2020-03-31 06:05] LABS: Prothrombin Time 19.4 SEC (10.8-13.0)
[2020-03-31 06:20] LABS: Alanine Aminotransferase 17 U/L (0-40); Albumin Level 3.3 g/dL (3.5-5.0); Alkaline Phosphatase 85 U/L (39-117); Anion Gap 20 (12-20); Aspartate Amino Transferase 22 U/L (5-37); Bilirubin Total 2.5 mg/dL (0.0-1.0); Blood Urea Nitrogen 73 mg/dL (9-16); Calcium 8.6 mg/dL (8.4-10.2); Carbon Dioxide 21 mmol/L (22-29); Chloride 109 mmol/L (96-108); Creatinine Clr Calc Pharmacy 52.1; Estimated Glomerular Filt Rate 59; Glucose Random 174 mg/dL (60-115); Phosphorus 3.7 mg/dL (2.7-4.5); Potassium 4.9 mmol/l (3.3-5.1); Sodium 145 mmol/L (135-145); Total Protein 6.5 g/dL (6.5-8.0)
[2020-03-31] MEDS: 0.9 % Sodium Chloride Flush 3 ML SYRINGE IVFLUSH ×2 (08:21→17:11)
[2020-03-31] MEDS: dexAMETHasone sod phosphate 4 MG/ML VIAL 6 MG IVPUSH (08:21)
[2020-03-31] MEDS: Furosemide 20 MG/2 ML VIAL IVPUSH (08:21)
[2020-03-31] MEDS: Atorvastatin Calcium 20 MG TABLET PO (08:21)
[2020-03-31] MEDS: amLODIPine Besylate 5 MG TABLET PO (08:21)
--- NOTE | 2020-03-31 14:46 | P.PNCC_ITS ---
Subjective Subjective Date of Service: 03/31/20 Interval History: 84-year-old gentleman with underlying history of AFib on anticoagulation, CKD stage 3, hypertension admitted on 03/24/2020 with hypoxemia secondary to COVID-19. Hospital course significant for progressive hypoxemia and escalating FiO2 requirements, up to requiring noninvasive positive pressure ventilation. Treated with remdesivir and dexamethasone. Hospital course further complicated by progressive coagulopathy. No events overnight. On and off CPAP. Coagulopathy improved. Physical Exam Vital Signs: Vital Signs: Last Vital Signs Temp 98.1 F 03/31/20 13:57 Pulse 89 03/31/20 13:57 Resp 21 H 03/31/20 13:57 BP 101/60 03/31/20 13:57 Pulse Ox 89 L 03/31/20 13:57 Body Mass Index 29.5 Const: General: no acute distress, alert and awake Eyes: Sclerae: sclerae normal EOM: EOMs intact bilaterally Neck: Neck: Yes no lymphadenopathy, Yes trachea midline and Yes supple Resp: Effort & Inspection: normal respiratory effort and no respiratory distr ess Auscultation: crackles (Diffuse bilateral) Cardio: Rate: regular rate Rhythm: regular rhythm Heart sounds: no gallops, no murmurs and no rubs GI: Palpation (GI): Soft to palpation and Other GI palpation findings present ( Nontender) Auscultation: normal bowel sounds Extrem: General: Yes no pedal edema, No clubbing and No cyanosis Objective Data Labs CBC & Chem 7: 03/31/20 05:39 03/31/20 05:39 Labs: Laboratory Results - last 24 hr 03/31/20 03/31/20 03/31/20 05:39 05:39 05:39 WBC 23.1 H RBC 6.17 H Hgb 18.4 H Hct 55.5 H MCV 90.0 MCH 29.8 MCHC 33.2 RDW 17.0 H Plt Count 156 L D MPV 12.2 Immature Gran % (Auto) 1.0 H Neut % (Auto) 89.7 H Lymph % (Auto) 4.0 L [place] % (Auto) 5.1 Eos % (Auto) 0.0 Baso % (Auto) 0.2 Lymph # (Auto) 0.9 L [place] # (Auto) 1.2 Eos # (Auto) 0.0 Baso # (Auto) 0.0 Abs Immat Gran (auto) 0.24 H Absolute Neuts (auto) 20.7 H Absolute Nucleated RBC 0.000 Nucleated RBC % (auto) 0.0 PT 19.4 H D INR 1.6 H VBG pH VBG pCO2 VBG pO2 VBG HCO3 VBG O2 Saturation VBG Base Excess Sodium 145 Potassium 4.9 Chloride 109 H Carbon Dioxide 21 L Anion Gap 20 BUN 73 H Creatinine 1.18 Estim Creat Clear Calc 52.1 Estimated GFR 59 Random Glucose 174 H Calcium 8.6 Phosphorus 3.7 Magnesium 3.0 H Total Bilirubin 2.5 H AST 22 ALT 17 Alkaline Phosphatase 85 D Total Protein 6.5 Albumin 3.3 L 03/31/20 05:39 WBC RBC Hgb Hct MCV MCH MCHC RDW Plt Count MPV Immature Gran % (Auto) Neut % (Auto) Lymph % (Auto) [place] % (Auto) Eos % (Auto) Baso % (Auto) Lymph # (Auto) [place] # (Auto) Eos # (Auto) Baso # (Auto) Abs Immat Gran (auto) Absolute Neuts (auto) Absolute Nucleated RBC Nucleated RBC % (auto) PT INR VBG pH 7.40 VBG pCO2 44 VBG pO2 39 VBG HCO3 26 VBG O2 Saturation 70.1 VBG Base Excess 1.1 Sodium Potassium Chloride Carbon Dioxide Anion Gap BUN Creatinine Estim Creat Clear Calc Estimated GFR Random Glucose Calcium Phosphorus Magnesium Total Bilirubin AST ALT Alkaline Phosphatase Total Protein Albumin Microbiology Microbiology Results: Microbiology 03/24/20 10:32 Blood - Venous Blood Culture - Final No growth after 5 days. 03/24/20 10:20 Blood - Venous Blood Culture - Final No growth after 5 days. Progress Note: A&P Assessment and plan (1) Coagulopathy: Status: Acute Assessment and Plan: Assessment: Acute hypoxic respiratory failure secondary to COVID-19 ARDS further complicated by coagulopathy and acute renal failure. Now requiring noninvasive positive pressure ventilation. Plan: Neuro: No acute issues. Cardiac: No acute issues. Pulmonary: Acute hypoxic respiratory failure secondary to COVID-19 related ARDS. Now requiring noninvasive positive pressure ventilation. Continue to titrate off as tolerated. Completed remdesivir. Continue dexamethasone. Renal: Acute renal failure secondary to COVID-19. Non oliguric. Continue to monitor renal indices and urine output. Endo: No acute issues. GI: No acute issues. ID: No acute issues Heme/Onc: Progressive coagulopathy, likely secondary to COVID-19 related of end-organ damage, now with significant improvement with vitamin K. Continue to monitor INR. Continue to monitor hemoglobin. Psych: No acute issues. Miscellaneous: No acute issues. Prophylaxis: Intermittent pneumatic compression, Lovenox Diet: Regular Critical care time spent: 60 minutes (2) Acute respiratory distress syndrome (ARDS) due to COVID-19 virus: Status: Acute (3) Acute respiratory failure with hypoxia: Status: Acute Time Spent With Patient Total time spent with greater than 50% in coordination of care (as documented) at patient's floor/unit and/or counseling patient:: 0 Critical Care Time Critical Care Time (minutes): 60
[2020-03-31] MEDS: Enoxaparin Sodium 40 MG/0.4 ML SYRINGE SUBCUT (16:04)
[2020-04-01] VITALS (30 sets, daily range): BP systolic 102–159; BP diastolic 55–102; PULSE 78–102; RESP 18–37; TEMP 36.5–37.3; O2SAT 85–99
[2020-04-01 05:57] LABS: Basophils Percent Auto 0.2 % (0-2); SCAN SMEAR FLAG 1
[2020-04-01 05:58] LABS: MANUAL DIFF FLAG NO
[2020-04-01 05:59] LABS: Hemoglobin 19.6 g/dl (14.0-18.0); Imm Gran Abs Auto 0.22 X10*3/uL (0.00-0.03); Lymphocytes Absolute Auto 0.8 X10*3/uL (1.2-4.9); Lymphocytes Percent Auto 3.7 % (20-40); Mean Corpuscular HGB Conc 32.5 g/dl (31.0-36.0); Mean Corpuscular Hemoglobin 29.3 pg (27.0-33.0); Mean Corpuscular Volume 90.4 fL (80-98); Mean Platelet Volume 13.2 fL (9.4-12.4); Monocytes Absolute Auto 1.3 X10*3/uL (0.1-1.2); Monocytes Percent Auto 5.8 % (2-11); Neutrophils Absolute Auto 20.5 X10*3/uL (2.0-8.3); Neutrophils Percent Auto 89.3 % (45-73); PLT CLUMP 1; Red Blood Count 6.68 X10*6/uL (4.60-5.80); Red Cell Distribution Width 17.6 % (11.0-16.0)
[2020-04-01 06:04] LABS: Hematocrit 60.4 % (42-52); PLT ABN DIST 1
[2020-04-01 06:13] LABS: Base Excess VBG 1.1 mmol/L; HCO3 VBG 27 mmol/L; Oxygen Saturation VBG 63.1 %; PCO2 VBG 45 mmhg; PO2 VBG 34 mmhg; pH VBG 7.39 (7.32-7.43)
[2020-04-01 06:54] LABS: Platelet Count 127 X10*3/uL (160-400); White Blood Count 22.9 X10*3/uL (4.8-10.8)
[2020-04-01 07:30] LABS: INTERNATIONAL NORM RATIO 1.3 (0.9-1.1); Prothrombin Time 15.2 SEC (10.8-13.0)
[2020-04-01 08:03] LABS: Albumin Level 3.4 g/dL (3.5-5.0); Anion Gap 16 (12-20); Blood Urea Nitrogen 102 mg/dL (9-16); Carbon Dioxide 29 mmol/L (22-29); Chloride 109 mmol/L (96-108); Creatinine Clr Calc Pharmacy 39.4; Estimated Glomerular Filt Rate 43; Glucose Random 176 mg/dL (60-115); Magnesium 3.5 mg/dL (1.6-2.6); Phosphorus 4.3 mg/dL (2.7-4.5); Potassium 4.7 mmol/l (3.3-5.1); Sodium 149 mmol/L (135-145)
[2020-04-01] MEDS: Furosemide 20 MG/2 ML VIAL IVPUSH (08:17)
[2020-04-01] MEDS: dexAMETHasone sod phosphate 4 MG/ML VIAL 6 MG IVPUSH (08:17)
[2020-04-01] MEDS: 0.9 % Sodium Chloride Flush 3 ML SYRINGE IVFLUSH ×2 (08:17→14:28)
[2020-04-01] MEDS: amLODIPine Besylate 5 MG TABLET PO (08:18)
[2020-04-01] MEDS: Atorvastatin Calcium 20 MG TABLET PO (08:18)
[2020-04-01] MEDS: Dextrose 5 % 1,000 ML 125 ML IVCONT (08:30)
--- NOTE | 2020-04-01 11:22 | PM.CCPN ---
Subjective Subjective Date of Service: 04/01/20 Interval History: 84-year-old gentleman with underlying history of AFib on anticoagulation, CKD stage 3, hypertension admitted on 03/24/2020 with hypoxemia secondary to COVID-19. Hospital course significant for progressive hypoxemia and escalating FiO2 requirements, up to requiring noninvasive positive pressure ventilation. Treated with remdesivir and dexamethasone. Hospital course further complicated by progressive coagulopathy and acute renal failure. No events overnight. On and off CPAP. Coagulopathy resolved. Renal function deteriorating. Physical Exam Vital Signs: Vital Signs: Last Vital Signs Temp 98.8 F 04/01/20 09:54 Pulse 93 04/01/20 10:55 Resp 26 H 04/01/20 10:58 BP 130/70 04/01/20 10:55 Pulse Ox 94 04/01/20 10:55 Body Mass Index 29.5 Const: General: no acute distress, alert and awake Eyes: Sclerae: sclerae normal EOM: EOMs intact bilaterally Neck: Neck: Yes no lymphadenopathy, Yes trachea midline and Yes supple Resp: Effort & Inspection: normal respiratory effort Auscultation: crackles bilateral and diffuse Cardio: Rate: tachycardic Rhythm: regular rhythm Heart sounds: no gallops, no murmurs and no rubs GI: Palpation (GI): Soft to palpation and Other GI palpation findings present ( Nontender) Auscultation: normal bowel sounds Extrem: General: No clubbing, No cyanosis and Yes edema (1+ bilateral) Objective Data Labs CBC & Chem 7: 04/01/20 05:44 04/01/20 07:10 Labs: Laboratory Results - last 24 hr 04/01/20 04/01/20 04/01/20 05:44 05:44 05:44 WBC 22.9 H RBC 6.68 H Hgb 19.6 H Hct 60.4 H MCV 90.4 MCH 29.3 MCHC 32.5 RDW 17.6 H Plt Count 127 L MPV 13.2 H Immature Gran % (Auto) 1.0 H Neut % (Auto) 89.3 H Lymph % (Auto) 3.7 L [place] % (Auto) 5.8 Eos % (Auto) 0.0 Baso % (Auto) 0.2 Lymph # (Auto) 0.8 L [place] # (Auto) 1.3 H Eos # (Auto) 0.0 Baso # (Auto) 0.0 Abs Immat Gran (auto) 0.22 H Absolute Neuts (auto) 20.5 H Absolute Nucleated RBC 0.000 Nucleated RBC % (auto) 0.0 PT INR VBG pH 7.39 VBG pCO2 45 VBG pO2 34 VBG HCO3 27 VBG O2 Saturation 63.1 VBG Base Excess 1.1 Sodium Cancelled Potassium Cancelled Chloride Cancelled Carbon Dioxide Cancelled Anion Gap Cancelled BUN Cancelled Creatinine Cancelled Estim Creat Clear Calc Cancelled Estimated GFR Cancelled Random Glucose Cancelled Calcium Cancelled Phosphorus Cancelled Magnesium Cancelled Albumin Cancelled 04/01/20 04/01/20 04/01/20 05:44 07:10 07:10 WBC RBC Hgb Hct MCV MCH MCHC RDW Plt Count MPV Immature Gran % (Auto) Neut % (Auto) Lymph % (Auto) [place] % (Auto) Eos % (Auto) Baso % (Auto) Lymph # (Auto) [place] # (Auto) Eos # (Auto) Baso # (Auto) Abs Immat Gran (auto) Absolute Neuts (auto) Absolute Nucleated RBC Nucleated RBC % (auto) PT Cancelled 15.2 H D INR Cancelled 1.3 H VBG pH VBG pCO2 VBG pO2 VBG HCO3 VBG O2 Saturation VBG Base Excess Sodium 149 H Potassium 4.7 Chloride 109 H Carbon Dioxide 29 Anion Gap 16 BUN 102 H* D Creatinine 1.56 H Estim Creat Clear Calc 39.4 Estimated GFR 43 Random Glucose 176 H Calcium 9.0 Phosphorus 4.3 Magnesium 3.5 H* Albumin 3.4 L Microbiology Microbiology Results: Microbiology 03/24/20 10:32 Blood - Venous Blood Culture - Final No growth after 5 days. 03/24/20 10:20 Blood - Venous Blood Culture - Final No growth after 5 days. Progress Note: A&P Assessment and plan (1) Acute renal failure: Status: Acute Assessment and Plan: Assessment: Acute hypoxic respiratory failure secondary to COVID-19 ARDS further complicated by coagulopathy and acute renal failure. Now requiring noninvasive positive pressure ventilation. Plan: Neuro: No acute issues. Cardiac: No acute issues. Pulmonary: Acute hypoxic respiratory failure secondary to COVID-19 related ARDS. Now requiring noninvasive positive pressure ventilation. Continue to titrate off as tolerated. Completed remdesivir. Continue dexamethasone. Renal: Acute renal failure secondary to COVID-19. Non oliguric. Continue to monitor renal indices and urine output. Diuretic held, started on D5 supplementation. Endo: No acute issues. GI: No acute issues. ID: No acute issues Heme/Onc: Progressive coagulopathy, likely secondary to COVID-19 related of end-organ damage, now resolved. Psych: No acute issues. Miscellaneous: No acute issues. Prophylaxis: Lovenox Diet: Regular Critical care time spent: 45 minutes (2) Coagulopathy: Status: Acute (3) Acute respiratory distress syndrome (ARDS) due to COVID-19 virus: Status: Acute (4) Acute respiratory failure with hypoxia: Status: Acute Time Spent With Patient Total time spent with greater than 50% in coordination of care (as documented) at patient's floor/unit and/or counseling patient:: 0 Critical Care Time 45
--- NOTE | 2020-04-01 11:52 | MHC.CM.PN ---
Patient remains on and off of bipap/cpap in ICU. He is from home with his . Referral to [facility] made by previous rehabilitation case coordinator. No HCP is on file. May need physical therapy eval for home safety when medically stable. Continue to monitor for d/c needs.
[2020-04-01] MEDS: Enoxaparin Sodium 40 MG/0.4 ML SYRINGE SUBCUT (14:28)
--- NOTE | 2020-04-01 17:44 | PC.NURSE ---
A&O X 4. SLEEPY, BUT EASILY AROUSABLE. AFEBRILE. VSS. AFIB WITH PVCS ON TELE. CPAP 12 ON 100% MOST OF THE DAY, DECREASED TO 90% AT 1630. DESATS RAPIDLY WHEN MASK IS REMOVED. Q2H REPO, BARRIER CREAM APPLIED, BATHED, DRESSING TO BRIDGE OF NOSE APPLIED FOR PROTECTION. UPDATED X 2 BY THIS RN.
[2020-04-02] VITALS (31 sets, daily range): BP systolic 107–149; BP diastolic 41–91; PULSE 80–108; RESP 20–35; TEMP 36.5–37.1; O2SAT 86–100
[2020-04-02 05:42] LABS: Imm Gran Pct Auto 0.7 % (0.0-0.4); MANUAL DIFF FLAG SCAN; Neutrophils Percent Auto 88.5 % (45-73); SCAN SMEAR FLAG 1
[2020-04-02 05:44] LABS: Basophils Percent Auto 0.1 % (0-2); Eosinophils Absolute Auto 0.1 X10*3/uL (0.0-0.4); Eosinophils Percent Auto 0.6 % (0-4); Hematocrit 54.9 % (42-52); Hemoglobin 18.2 g/dl (14.0-18.0); Imm Gran Abs Auto 0.16 X10*3/uL (0.00-0.03); Lymphocytes Absolute Auto 0.9 X10*3/uL (1.2-4.9); Lymphocytes Percent Auto 3.7 % (20-40); Mean Corpuscular HGB Conc 33.2 g/dl (31.0-36.0); Mean Corpuscular Volume 90.6 fL (80-98); Monocytes Absolute Auto 1.5 X10*3/uL (0.1-1.2); Monocytes Percent Auto 6.4 % (2-11); Neutrophils Absolute Auto 21.2 X10*3/uL (2.0-8.3); PLT CLUMP 1; Red Blood Count 6.06 X10*6/uL (4.60-5.80); Red Cell Distribution Width 16.8 % (11.0-16.0)
[2020-04-02 05:56] LABS: Base Excess VBG 0.4 mmol/L; HCO3 VBG 25 mmol/L; Oxygen Saturation VBG 77.4 %; PCO2 VBG 42 mmhg; PO2 VBG 44 mmhg
[2020-04-02 06:00] LABS: PLT ABN DIST 1
[2020-04-02 06:12] LABS: Alanine Aminotransferase 25 U/L (0-40); Alkaline Phosphatase 76 U/L (39-117); Anion Gap 20 (12-20); Aspartate Amino Transferase 38 U/L (5-37); Bilirubin Total 1.6 mg/dL (0.0-1.0); Calcium 8.4 mg/dL (8.4-10.2); Carbon Dioxide 24 mmol/L (22-29); Chloride 110 mmol/L (96-108); Creatinine Clr Calc Pharmacy 33.5; Estimated Glomerular Filt Rate 36; Glucose Random 174 mg/dL (60-115); Magnesium 3.7 mg/dL (1.6-2.6); Phosphorus 5.3 mg/dL (2.7-4.5); Potassium 5.5 mmol/l (3.3-5.1); Sodium 148 mmol/L (135-145); Total Protein 6.4 g/dL (6.5-8.0)
[2020-04-02 06:24] LABS: Platelet Count 125 X10*3/uL (160-400); White Blood Count 23.9 X10*3/uL (4.8-10.8)
[2020-04-02 06:25] LABS: SLIDE REVIEW VERIFIED
[2020-04-02 06:32] LABS: Blood Urea Nitrogen 114 mg/dL (9-16)
[2020-04-02] MEDS: dexAMETHasone sod phosphate 4 MG/ML VIAL 6 MG IVPUSH (07:29)
[2020-04-02] MEDS: Atorvastatin Calcium 20 MG TABLET PO (07:29)
[2020-04-02] MEDS: amLODIPine Besylate 5 MG TABLET PO (07:30)
[2020-04-02] MEDS: 0.9 % Sodium Chloride Flush 3 ML SYRINGE IVFLUSH ×2 (07:30→15:00)
--- NOTE | 2020-04-02 09:59 | P.PNCC_ITS ---
Subjective Subjective Date of Service: 04/02/20 Interval History: ICU day 4 for acute hypoxic respiratory failure, COVID-19 related ARDS, acute renal failure. 84-year-old gentleman with underlying history of AFib on anticoagulation, CKD stage 3, hypertension admitted on 03/24/2020 with hypoxemia secondary to COVID- 19. Hospital course significant for progressive hypoxemia and escalating FiO2 requirements, up to requiring noninvasive positive pressure ventilation. Treated with remdesivir and dexamethasone. Hospital course further complicated by progressive coagulopathy and acute renal failure. No events overnight. Continues to require CPAP support. Renal function continues to deteriorate. Patient is interested in the full range of available medical treatments including intubation and dialysis. Physical Exam Vital Signs: Vital Signs: Last Vital Signs Temp 98.8 F 04/02/20 09:00 Pulse 102 H 04/02/20 09:00 Resp 35 H 04/02/20 09:00 BP 142/73 H 04/02/20 09:00 Pulse Ox 88 L 04/02/20 09:00 Body Mass Index 29.5 Const: General: no acute distress, alert and awake Eyes: Sclerae: sclerae normal EOM: EOMs intact bilaterally Neck: Neck: Yes no lymphadenopathy, Yes trachea midline and Yes supple Resp: Effort & Inspection: normal respiratory effort and no respiratory distress Auscultation: clear to auscultation bilaterally Cardio: Rate: regular rate Rhythm: regular rhythm Heart sounds: no gallops, no murmurs and no rubs GI: Palpation (GI): Soft to palpation and Other GI palpation findings present ( Nontender) Auscultation: normal bowel sounds Extrem: General: No clubbing, No cyanosis and Yes edema (Trace bilateral) Objective Data Labs CBC & Chem 7: 04/02/20 05:27 04/02/20 05:27 Labs: Laboratory Results - last 24 hr 04/02/20 04/02/20 04/02/20 05:27 05:27 05:27 WBC 23.9 H RBC 6.06 H Hgb 18.2 H Hct 54.9 H MCV 90.6 MCH 30.0 MCHC 33.2 RDW 16.8 H Plt Count 125 L Immature Gran % (Auto) 0.7 H Neut % (Auto) 88.5 H Lymph % (Auto) 3.7 L Jennings % (Auto) 6.4 Eos % (Auto) 0.6 Baso % (Auto) 0.1 Lymph # (Auto) 0.9 L Jennings # (Auto) 1.5 H Eos # (Auto) 0.1 Baso # (Auto) 0.0 Abs Immat Gran (auto) 0.16 H Absolute Neuts (auto) 21.2 H Absolute Nucleated RBC 0.000 Nucleated RBC % (auto) 0.0 Smear Tech's Comments VERIFIED VBG pH 7.40 VBG pCO2 42 VBG pO2 44 VBG HCO3 25 VBG O2 Saturation 77.4 VBG Base Excess 0.4 Sodium 148 H Potassium 5.5 H Chloride 110 H Carbon Dioxide 24 Anion Gap 20 BUN 114 H* Creatinine 1.83 H Estim Creat Clear Calc 33.5 Estimated GFR 36 Random Glucose 174 H Calcium 8.4 D Phosphorus 5.3 H Magnesium 3.7 H* Total Bilirubin 1.6 H AST 38 H D ALT 25 Alkaline Phosphatase 76 Total Protein 6.4 L Albumin 3.0 L Microbiology Microbiology Results: Microbiology 03/24/20 10:32 Blood - Venous Blood Culture - Final No growth after 5 days. 03/24/20 10:20 Blood - Venous Blood Culture - Final No growth after 5 days. Progress Note: A&P Assessment and plan (1) Acute renal failure: Status: Acute Assessment and Plan: Assessment: Acute hypoxic respiratory failure secondary to COVID-19 ARDS further complicated by acute renal failure. Now requiring noninvasive positive pressure ventilation. Plan: Neuro: No acute issues. Cardiac: No acute issues. Pulmonary: Acute hypoxic respiratory failure secondary to COVID-19 related ARDS. Now requiring noninvasive positive pressure ventilation. Continue to titrate off as tolerated. Completed remdesivir. Continue dexamethasone. Renal: Acute renal failure secondary to COVID-19. Non oliguric. Continue to monitor renal indices and urine output. Hypernatremia, continue on D5. Will likely require hemodialysis. Endo: No acute issues. GI: No acute issues. ID: No acute issues Heme/Onc: Coagulopathy likely secondary to COVID-19 related of end-organ damage, now resolved. Psych: No acute issues. Miscellaneous: No acute issues. Prophylaxis: Lovenox Diet: Regular Critical care time spent: 45 minutes (2) Acute respiratory distress syndrome (ARDS) due to COVID-19 virus: Status: Acute (3) Acute respiratory failure with hypoxia: Status: Acute Time Spent With Patient Total time spent with greater than 50% in coordination of care (as documented) at patient's floor/unit and/or counseling patient:: 0 Critical Care Time 45
[2020-04-02] MEDS: Dextrose 5 % 1,000 ML 200 ML IVCONT ×2 (10:02→14:59)
--- NOTE | 2020-04-02 14:20 | PC.NURSE ---
Patient remains on CPAP with 70%Fi02, o2 saturations trending in the low 90s. Patient having decreased PO intake d/t respiratory status, MD aware. Per MD, RT at bedside and patient placed on high flow with 100% fi02 in addition to NRB with 100% fio2 to consume 100% of one ensure supplemental shake. Patient tolerated poorly, 02 sat as low as 84%. Patient placed back on CPAP at same setting as above. Patient's update with plan of care and patient's health status by this RN.
[2020-04-02 14:49] LABS: Total Protein Urine Random < 7 mg/dL (<12)
[2020-04-02] MEDS: Enoxaparin Sodium 40 MG/0.4 ML SYRINGE SUBCUT (15:00)
--- NOTE | 2020-04-02 15:53 | MHC.CM.PN ---
Patient remains in ICU on/off cpap. Patient is from home without services. Referral to [facility] was already made by previous case hardener. No HCP is currently on file. Continue to monitor for d/c needs.
--- NOTE | 2020-04-02 18:32 | P.CONNP_ITS ---
History of Present Illness Reason for Consult Consult date: 04/02/20 Reason for consult: TYE Chief Complaint Chief complaint: Acute respiratory Failure, Covid 19 History of Present Illness Narrative: Ask to see patient to food trades assistants evaluationand management of acute kidney injury in the setting of COVID and hypoxic respiratory failure now 4 day in the ICU And concerned that he may need dialysis in the near future. In summary he's an 84-year-old gentleman with a history of a fib hy pertension and stage III chronic kidney disease. He has been on standard.co vid long treatment including steroids and his real function has steadily been worsening with an increasing bun/cr ratio and decreasing UOP along with wo rseining hypoxic resp failure Afib Atelectasis of right lung CKD (chronic kidney disease) stage 3, GFR 30-59 ml/min Dyspnea Ectatic thoracic aorta Gout HTN (hypertension) Hyperlipidemia Pulmonary nodules Review of Systems Review of Systems Gen: no fever Resp: + sob, no cough CV: no chest, +Mclaughlin, no leg edema GI: No n/v, no abd pain Neuro: No confusion PMFSH Past Medical History Medical History (Updated 03/30/20 @ 15:07 by Miguel Wade MD) Afib Atelectasis of right lung CKD (chronic kidney disease) stage 3, GFR 30-59 ml/min Dyspnea Ectatic thoracic aorta Gout HTN (hypertension) Hyperlipidemia Pulmonary nodules Functional capacity: independent ambulation Family History Family History Father Heart disease Mother Dementia Brother No problems noted. Family history: reviewed and not pertinent Surgical History Surgical History History of knee replacement procedure of left knee History of melanoma excision Social History Social History Household Members: Spouse Housing: House Alcohol intake: never Smoking Status: Former smoker Use of substances other than those prescribed or required for medical reasons: No Currently Displaying Signs/Symptoms of Drug Intoxication Withdrawal: No Any prior treatment program specific to substance use: No Have you been hit, kicked, punched, or otherwise hurt by someone within the past year? If so, by whom?: No Do you feel safe in your current relationship?: Yes Is there a partner from a previous relationship who is making you feel unsafe now?: No Are you made to feel afraid or neglected: No Advance Directives: No Advance Directives Information Provided: No Do you have thoughts of harming others: None Do you have a plan to hurt others: No Plan Recently lost weight without trying: No service: No Current occupational status: retired Meds Allergies Allergy/AdvReac Type Severity Reaction Status Date / Time No Known Allergies Allergy Verified 03/24/20 09:49 [No Known Allergies*] Home Medications Medication Instructions Recorded Confirmed Type amlodipine 5 mg tablet 5 mg PO DAILY 02/07/20 03/24/20 History ascorbate calcium (vitamin C) 500 500 mg PO DAILY 02/07/20 03/24/20 History mg tablet atorvastatin 20 mg tablet 20 mg PO DAILY 02/07/20 03/24/20 History fenofibrate nanocrystallized 145 145 mg PO DAILY 02/07/20 03/24/20 History mg tablet lisinopril 40 mg tablet 40 mg PO DAILY 02/07/20 03/24/20 History metoprolol succinate 25 mg 25 mg PO DAILY 02/07/20 03/24/20 History tablet,extended release 24 hr warfarin 1.25 mg PO MOWEFRSA@1800 03/24/20 03/24/20 History warfarin [Jantoven] 2.5 mg PO SUTUTH@1800 03/24/20 03/24/20 History Physical Exam Vital Signs: Last Vital Signs Temp 98.1 F 04/02/20 18:00 Pulse 87 04/02/20 18:00 Resp 25 H 04/02/20 18:00 BP 132/91 H 04/02/20 18:00 Pulse Ox 98 04/02/20 18:00 Body Mass Index 29.5 Const Other: General - on cPAP Cardiovascular - regular rate and rhythm, S1-S2 Lungs - dim sounds, distress with any exertion, Abdomen - soft, nontender, no rebound or guarding Extremities - no edema bilaterally Neuro - awake no focal deficits General: cooperative, no acute distress, alert and awake Nutritional Appearance: well nourished Orientation/consciousness: patient oriented x3 HENMT Head: Yes normal to inspection, Yes normocephalic and Yes atraumatic Eyes General: appearance normal, both eyes and all related structures Sclerae: sclerae normal EOM: EOMs intact bilaterally Neck Neck: Yes no lymphadenopathy, Yes trachea midline and Yes supple Chest Chest palpation & inspection: normal inspection of the chest Resp Other: labored breathing with conversation but able to speak in full sentences Effort & Inspection: normal respiratory effort, abnormal respiratory pattern and no respiratory distress Auscultation: clear to auscultation bilaterally and crackles bilateral and diffuse Cardio Other: General - no significant distress Cardiovascular - regular rate and rhythm, S1-S2 Lungs - dim sounds, distress with any exertion, Abdomen - soft, nontender, no rebound or guarding Extremities - no edema bilaterally Neuro - awake and alert, no focal deficits Rate: regular rate and tachycardic Rhythm: regular rhythm Heart sounds: no gallops, no murmurs and no rubs GI Palpation (GI): Soft to palpation, nontender and Other GI palpation findings present ( Nontender) Auscultation: normal bowel sounds Skin General skin exam: no rashes or lesions noted Neuro General: patient oriented x3 Cranial nerves: Yes CN's II-XII intact bilaterally and Yes Bilaterally intact EOM present Extrem General: Yes normal to inspection, Yes no pedal edema, No clubbing, No cyanosis and Yes edema (Trace bilateral) Results Lab Results Result Diagrams: 04/02/20 05:27 04/02/20 05:27 Lab results: Chemistry 03/31/20 04/01/20 04/01/20 05:39 05:44 07:10 Sodium 145 Cancelled 149 H Potassium 4.9 Cancelled 4.7 Carbon Dioxide 21 L Cancelled 29 BUN 73 H Cancelled 102 H* D Creatinine 1.18 Cancelled 1.56 H Calcium 8.6 Cancelled 9.0 Phosphorus 3.7 Cancelled 4.3 04/02/20 05:27 Sodium 148 H Potassium 5.5 H Carbon Dioxide 24 BUN 114 H* Creatinine 1.83 H Calcium 8.4 D Phosphorus 5.3 H Hematology 03/31/20 04/01/20 04/02/20 05:39 05:44 05:27 WBC 23.1 H 22.9 H 23.9 H Hgb 18.4 H 19.6 H 18.2 H Plt Count 156 L D 127 L 125 L Urine Studies 04/02/20 13:34 Urine Creatinine 109.30 Assessment and Plan (1) Acute renal failure: Status: Acute Assessment: Acute hypoxic respiratory failure secondary to COVID-19 ARDS further complicated by acute renal failure. Now requiring noninvasive positive pressure ventilation. Plan: Neuro: No acute issues. Cardiac: No acute issues. Pulmonary: Acute hypoxic respiratory failure secondary to COVID-19 related ARDS. Now requiring noninvasive positive pressure ventilation. Continue to titrate off as tolerated. Completed remdesivir. Continue dexamethasone. Renal: Acute renal failure secondary to COVID-19. Non oliguric. Continue to monitor renal indices and urine output. Hypernatremia, continue on D5. Will likely require hemodialysis. Endo: No acute issues. GI: No acute issues. ID: No acute issues Heme/Onc: Coagulopathy likely secondary to COVID-19 related of end-organ damage, now resolved. Psych: No acute issues. Miscellaneous: No acute issues. Prophylaxis: Lovenox Diet: Regular Critical care time spent: 45 minutes (2) Acute respiratory distress syndrome (ARDS) due to COVID-19 virus: Status: Acute (3) Acute respiratory failure with hypoxia: Status: Acute 1. non-oligric TYE: most c/w with multifact ATN w COVID assoc cytokine tubular injury and/or decr renal perfusion/ischemic ATN 2. Resp Failure from COVID lung 3. CKD 3: bsl SCr 1.2-1.3 range REC: check urine stiudies ( iordered); track UOP/renal func; possible need for HD/UF; may consider trial of diuretics tonight if resp status wosens furhter Cased/w Dr Wade Will follow kavin with ICU team
[2020-04-02 23:02] LABS: Pt Ventilation O2% 90%
[2020-04-02 23:03] LABS: ABG PCO2 35 mmhg (32-45); Base Excess ABG -3.9; HCO3 ABG 20 mmol/l (22-26); Oxygen Saturation ABG 97.1 %; PO2 ABG 95 mmhg (83-108); pH ABG 7.38 (7.35-7.45)
[2020-04-03] VITALS (33 sets, daily range): BP systolic 102–159; BP diastolic 48–92; PULSE 82–96; RESP 20–37; TEMP 36.5–37; O2SAT 87–98; BMI 27.9
--- NOTE | 2020-04-03 | US_ITS ---
EXAMINATION: US VENOUS ULTRASOUND WITH DOPPLER LOWER EXTREMITY, BILATERAL CLINICAL INFORMATION: Swelling. Covid positive. COMPARISON: None TECHNIQUE: Ultrasound of the deep veins is performed from the hip to the calf with compression sonography and color and pulse Doppler assessment. Spectral analysis with color-flow imaging is performed. FINDINGS: RIGHT: There is occlusive deep vein thrombosis of the right lower extremity from the upper mid thigh into the calf involving the superficial femoral artery through the popliteal artery and into the peroneal and posterior tibial veins of the calf. The common femoral vein and the greater saphenous vein are patent. LEFT: There is deep vein thrombosis. There is occlusive thrombus in the calf involving the peroneal vein in the posterior tibial vein. Normal vascular flow is seen in the popliteal vein and in the thigh and including the common femoral vein. No popliteal cyst in either leg. US/US venous duplex LE BI IMPRESSION: 1. Right lower extremity. Extensive deep vein thrombosis from groin through calf. 2. Left lower extremity. Deep vein thrombosis involving the calf. This critical result was discussed with Dr. Cleary, 4:40 PM and it was ascertained that the content and urgency of the report was understood at the time of direct communication.
--- NOTE | 2020-04-03 | CT_ITS ---
EXAMINATION: CT CHEST WITHOUT CONTRAST CLINICAL INFORMATION: Covid pneumonia COMPARISON: Chest x-ray 04/03/2020. CT chest 02/02/2020 TECHNIQUE: Multidetector volumetric CT imaging of the chest was done. Axial MIP volume rendering provided. Sagittal and coronal reformatted images were obtained. This CT examination was performed using dose optimization techniques as appropriate, variously including the following: *Automated exposure control *Adjustment of mA and/or kV according to patient size (this includes techniques or standardized protocols for targeted exams where dose is matched to indication/reason for exam; i.e. extremities or head) *Use of iterative reconstruction technique DLP: 511 mGy-cm FINDINGS: LUNGS: Asymmetric elevation of the right diaphragm compared to left. There is diffuse hazy extensive airspace opacities throughout the lungs in a pattern of crazy paving consistent with history of Covid pneumonia. Airspace disease is new since the CAT scan of 02/02/2020. There is mild bibasilar bronchiectasis. No significant bronchial wall thickening however. The central bronchial airways though remain open. MEDIASTINUM: No mediastinal mass or significant lymphadenopathy. Moderate volume of scattered vascular wall calcifications of the aorta. 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 Moderate volume of coronary artery calcification. The heart size is normal. There is no pericardial effusion. PLEURA: There is no pleural effusion. No pleural mass or thickening. AXILLA: No lymphadenopathy. UPPER ABDOMEN: Exophytic 2.5 cm cyst at the upper pole of the right kidney. Visualized portions of liver and spleen, pancreas and adrenal glands are unremarkable. OSSEOUS STRUCTURES: Multilevel degenerative spondylosis of the spine. CT/CT chest wo con IMPRESSION: Extensive diffuse hazy airspace opacities in the lungs bilateral consistent with history of Covid pneumonia.
[2020-04-03] MEDS: 0.9 % Sodium Chloride Flush 3 ML SYRINGE IVFLUSH ×4 (01:07→23:51)
[2020-04-03] MEDS: Morphine Sulfate 2 MG/ML CARTRIDGE IVPUSH (03:50)
--- NOTE | 2020-04-03 04:34 | W.PM.CCHP ---
Procedures Central Line Placement Right IJ: Central Line Comments: Right internal jugular triple lumen central venous catheter placed in usual sterile conditions under ultrasound guidance for appropriate vascular access without immediate complications. Central line position verified with Chest XRAY. Consent for Procedure: Elective - informed consent obtained (verbal consent from patient) Time out performed: Yes Sterile Technique Used: Yes Patient placed on monitor/pulse ox: Yes MD prep: mask, gown and gloves Central line prep: Chlorhexidine scrub Local anesthesia used: lidocaine 1% Ultrasound used for placement: Yes Central line lumen inserted: triple Post procedure: sutured in place, good blood return, all ports aspirated, flushed, capped and sterile dressing applied Post procedure x-ray: tip of catheter in good position and no pneumothorax seen Patient tolerated procedure: well and no complications Complications: none
[2020-04-03 05:51] LABS: Basophils Percent Auto 0.1 % (0-2); Hematocrit 51.9 % (42-52); Hemoglobin 17.3 g/dl (14.0-18.0); Imm Gran Abs Auto 0.23 X10*3/uL (0.00-0.03); Imm Gran Pct Auto 0.9 % (0.0-0.4); Lymphocytes Percent Auto 3.8 % (20-40); Mean Corpuscular HGB Conc 33.3 g/dl (31.0-36.0); Mean Corpuscular Volume 90.1 fL (80-98); Mean Platelet Volume 11.9 fL (9.4-12.4); Monocytes Absolute Auto 1.6 X10*3/uL (0.1-1.2); Monocytes Percent Auto 6.4 % (2-11); Neutrophils Absolute Auto 22.3 X10*3/uL (2.0-8.3); Neutrophils Percent Auto 88.8 % (45-73); Platelet Count 100 X10*3/uL (160-400); Red Blood Count 5.76 X10*6/uL (4.60-5.80); Red Cell Distribution Width 16.1 % (11.0-16.0); SCAN SMEAR FLAG 1; White Blood Count 25.1 X10*3/uL (4.8-10.8)
[2020-04-03 05:57] LABS: MANUAL DIFF FLAG SCAN
[2020-04-03 06:07] LABS: Base Excess VBG 0.1 mmol/L; HCO3 VBG 26 mmol/L; Oxygen Saturation VBG 67.2 %; PCO2 VBG 48 mmhg; PO2 VBG 39 mmhg; pH VBG 7.36 (7.32-7.43)
[2020-04-03 06:21] LABS: SLIDE REVIEW VERIFIED
[2020-04-03 06:38] LABS: Anion Gap 18 (12-20); Calcium 8.4 mg/dL (8.4-10.2); Carbon Dioxide 23 mmol/L (22-29); Chloride 110 mmol/L (96-108); Creatinine Clr Calc Pharmacy 39.9; Estimated Glomerular Filt Rate 43; Glucose Random 138 mg/dL (60-115); Phosphorus 4.8 mg/dL (2.7-4.5); Potassium 5.2 mmol/l (3.3-5.1); Sodium 146 mmol/L (135-145)
[2020-04-03 06:56] LABS: Blood Urea Nitrogen 120 mg/dL (9-16)
[2020-04-03] MEDS: dexAMETHasone sod phosphate 4 MG/ML VIAL 6 MG IVPUSH (08:09)
--- NOTE | 2020-04-03 11:08 | MHC.CM.PN ---
Per MD rounds, pt poor. CPAP remains. Positive COVID. Poor renal status. D/C plan pending pt condition. Originally home with and [facility]. Pt day 10. ? need for SNF upon d/c. Will continue to follow
--- NOTE | 2020-04-03 11:53 | P.PNNP_ITS ---
Subjective Subjective Date of Service: 04/03/20 Interval history: seen and examined on BIPAP alert complains of SOB Physical Exam Vital Signs: Vital Signs: Last Vital Signs Temp 98.4 F 04/03/20 10:56 Pulse 87 04/03/20 10:56 Resp 22 H 04/03/20 11:07 BP 122/67 04/03/20 10:56 Pulse Ox 91 L 04/03/20 10:56 Body Mass Index 29.5 Const: General: ill appearing HENMT: Head: Yes normocephalic and Yes atraumatic Neck: Neck: Yes supple Resp: Auscultation: diminished lung sounds Cardio: Heart sounds: S1 normal heart sound present and S2 normal heart sound present GI: Palpation (GI): Soft to palpation and no guarding Extrem: General: No pedal edema Objective Data Labs CBC & Chem 7: 04/03/20 05:17 04/03/20 05:17 Labs: Laboratory Results - last 24 hr 04/02/20 04/02/20 04/03/20 13:34 22:56 05:17 WBC 25.1 H RBC 5.76 Hgb 17.3 Hct 51.9 MCV 90.1 MCH 30.0 MCHC 33.3 RDW 16.1 H Plt Count 100 L MPV 11.9 Immature Gran % (Auto) 0.9 H Neut % (Auto) 88.8 H Lymph % (Auto) 3.8 L Williamson % (Auto) 6.4 Eos % (Auto) 0.0 Baso % (Auto) 0.1 Lymph # (Auto) 1.0 L Williamson # (Auto) 1.6 H Eos # (Auto) 0.0 Baso # (Auto) 0.0 Abs Immat Gran (auto) 0.23 H Absolute Neuts (auto) 22.3 H Absolute Nucleated RBC 0.000 Nucleated RBC % (auto) 0.0 Smear Tech's Comments VERIFIED ABG pH 7.38 ABG pCO2 35 ABG pO2 95 ABG HCO3 20 L ABG O2 Saturation 97.1 ABG Base Excess -3.9 VBG pH VBG pCO2 VBG pO2 VBG HCO3 VBG O2 Saturation VBG Base Excess Oxygen Given 90% Sodium Potassium Chloride Carbon Dioxide Anion Gap BUN Creatinine Estim Creat Clear Calc Estimated GFR Random Glucose Calcium Phosphorus Magnesium Albumin U Random Total Protein < 7 Ur Random Sodium 21.0 Urine Creatinine 109.30 04/03/20 04/03/20 05:17 05:17 WBC RBC Hgb Hct MCV MCH MCHC RDW Plt Count MPV Immature Gran % (Auto) Neut % (Auto) Lymph % (Auto) Williamson % (Auto) Eos % (Auto) Baso % (Auto) Lymph # (Auto) Williamson # (Auto) Eos # (Auto) Baso # (Auto) Abs Immat Gran (auto) Absolute Neuts (auto) Absolute Nucleated RBC Nucleated RBC % (auto) Smear Tech's Comments ABG pH ABG pCO2 ABG pO2 ABG HCO3 ABG O2 Saturation ABG Base Excess VBG pH 7.36 VBG pCO2 48 VBG pO2 39 VBG HCO3 26 VBG O2 Saturation 67.2 VBG Base Excess 0.1 Oxygen Given Sodium 146 H Potassium 5.2 H Chloride 110 H Carbon Dioxide 23 Anion Gap 18 BUN 120 H* Creatinine 1.54 H Estim Creat Clear Calc 39.9 Estimated GFR 43 Random Glucose 138 H Calcium 8.4 Phosphorus 4.8 H Magnesium 4.0 H* Albumin 3.0 L U Random Total Protein Ur Random Sodium Urine Creatinine Microbiology Microbiology Results: Microbiology 03/24/20 10:32 Blood - Venous Blood Culture - Final No growth after 5 days. 03/24/20 10:20 Blood - Venous Blood Culture - Final No growth after 5 days. Assessment & Plan Assessment and plan (1) TYE (acute kidney injury): Status: Acute (2) Hyperkalemia: Status: Acute (3) COVID-19: Status: Acute Assessment and Plan: TYE in the setting of SARS COV 2 infection BUN >> creatinine suggests pre renal state cannot exclude COVID related TYE volume status not consistent with hypervolemia I=O since admission elevated serum potassium due to impaired distal flow normal baseline kidney function REC urine sodium IVF (hypotonic) follow kidney function and electrolytes Time Spent With Patient Time: Total time spent is greater than 50% in coordination of care (as documented) at patient's floor/unit and/or counseling patient:
[2020-04-03 12:43] LABS: Sodium Urine Random < 20.0 mmol/L
--- NOTE | 2020-04-03 14:12 | P.PNCC_ITS ---
Subjective Subjective Date of Service: 04/03/20 Interval History: Mr. Us was admitted to ICU on Mar 30 for acute respiratory failure secondary to COVID pneumonia. 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 His was diagnosed with COVID-19 at the beginning of March. He began having symptoms on March 18; his 's symptoms have since resolved. He was admitted to [facility] on 03/24/2020 with progressive hypoxemia secondary to COVID-19. Presenting sat was 80% on room air. Lab work revealed elevated ferritin of 1492, LDH of 426 and CRP of 8.67. Chest x-ray was unremarkable. He required oxygen by Venti mask to maintain oxygen saturations above 90. Hospital course was significant for progressive hypoxemia, despite treatment with remdesivir and dexamethasone. Escalating FiO2 requirements required noninvasive positive pressure ventilation, for which he was transferred to ICU on Mar 30. He was given DVT prophylaxis level-Lovenox. Hospital course further complicated by progressive coagulopathy and acute kidney injury. On exam today, the patient is fully alert, c/o hunger and thirst. Been wearing CPAP mask for days now, unable to take it off for more than a few secs without desaturating. See Vital Signs below. Afebrile. Heart rhythm is atrial fibr illation but reasonably controlled. RR mid 20?s-mid 30?s on 90% CPAP +12, with Sat low-mid 90?s. No gross access muscle use, no incr WOB other than that attributable to his respiratory rate. No pressors. No JVD. Normal expiratory phase. Abdomen benign. No edema. We gave him a short break with high-flow nasal cannula 100% plus non-rebreather 15L. He was able to maintain a sat of 88% on that. LABORATORY DATA: As noted. Notably, white count slowly rising. Hemoglobin rising since admission. Platelet count dropping. PT/INR rising until 03 30, when given vitamin K 10 mg; subsequently normalizing. D-dimer initially in the 200s, today up to 5595. Central venous pCO2 48mm. BUN creatinine up to 120/1.5, potassium 5.2, bicarb 23. Troponin, BNP, and procalcitonin negative. CRP only 5 .6, but ferritin level 2963. Urine sodium less than 20. Chest x-ray: Hard to interpret, but overall strikingly unimpressive. Venous duplex scan shows occlusive DVT of the right lower extremity, from upper mid thigh into the calf. On the left side there is DVT in the calf. Noncontrast chest CT shows extensive bilateral diffuse hazy airspace opacity consistent with COVID pneumonia (although not the most dense COVID infiltrates that we have seen). IMPRESSION: 1. Bilateral COVID-19 ARDS. 2. Acute hypoxemic respiratory failure. Secondary to above and possible pulmonary VTE. 3. Marked D-dimer elevation with bilateral DVT, and severe hypoxemia. Suggest the possibility of pulmonary VTE, c/w COVID-9, although the normal BNP and normal troponin would be inconsistent with macro thrombi (i.e. the usual pulmonary emboli, either massive or submassive). We?ve bumped his Lovenox to 1 milligram/kilogram bid. We considered half dose tPA (per the [facility] protocol), but decided against it in the face of the noncontrast CT results. If pCO2 rises markedly despite BiPAP, would consider tPA. 4. TYE. Secondary to COVID-19, plus dehydration. Hydrating with D5W. Follow renal indices and urine-Na. 5. Hypernatremia. Rx w D5W. 6. Afib. Rate reasonably controlled on no medications. Now anticoagulated with full dose Lovenox. 7. Earlier coagulopathy. Unexplained. Possibly 2? dietary deficiency. 8. ID. No abx indicated (yet). Prognosis is poor, given his age. Not sure how much longer he?ll be able to go without being intubated. Venous pCO2 already up to 48. BiPAP is still an option. The patient and his wish to proceed with the full range of available medical treatments including intubation and dialysis. Critical care time (including full chart rev, extensive mult d/w renal and w Dr. Wade, extended telephone consultation with Dr. Nicolas and the [facility], and hosp chart summary): 2.5+ hrs. Physical Exam Vital Signs: Vital Signs: Last Vital Signs Temp 98.4 F 04/03/20 14:00 Pulse 95 04/03/20 14:00 Resp 27 H 04/03/20 14:00 BP 109/67 04/03/20 14:00 Pulse Ox 95 04/03/20 13:00 Body Mass Index 27.9 Objective Data Labs CBC & Chem 7: 04/03/20 05:17 04/03/20 05:17 Labs: Laboratory Results - last 24 hr 04/02/20 04/02/20 04/03/20 13:34 22:56 05:17 WBC 25.1 H RBC 5.76 Hgb 17.3 Hct 51.9 MCV 90.1 MCH 30.0 MCHC 33.3 RDW 16.1 H Plt Count 100 L MPV 11.9 Immature Gran % (Auto) 0.9 H Neut % (Auto) 88.8 H Lymph % (Auto) 3.8 L [place] % (Auto) 6.4 Eos % (Auto) 0.0 Baso % (Auto) 0.1 Lymph # (Auto) 1.0 L [place] # (Auto) 1.6 H Eos # (Auto) 0.0 Baso # (Auto) 0.0 Abs Immat Gran (auto) 0.23 H Absolute Neuts (auto) 22.3 H Absolute Nucleated RBC 0.000 Nucleated RBC % (auto) 0.0 Smear Tech's Comments VERIFIED ABG pH 7.38 ABG pCO2 35 ABG pO2 95 ABG HCO3 20 L ABG O2 Saturation 97.1 ABG Base Excess -3.9 VBG pH VBG pCO2 VBG pO2 VBG HCO3 VBG O2 Saturation VBG Base Excess Oxygen Given 90% Sodium Potassium Chloride Carbon Dioxide Anion Gap BUN Creatinine Estim Creat Clear Calc Estimated GFR Random Glucose Calcium Phosphorus Magnesium Albumin U Random Total Protein < 7 Ur Random Sodium 21.0 Urine Creatinine 109.30 04/03/20 04/03/20 04/03/20 05:17 05:17 12:05 WBC RBC Hgb Hct MCV MCH MCHC RDW Plt Count MPV Immature Gran % (Auto) Neut % (Auto) Lymph % (Auto) [place] % (Auto) Eos % (Auto) Baso % (Auto) Lymph # (Auto) [place] # (Auto) Eos # (Auto) Baso # (Auto) Abs Immat Gran (auto) Absolute Neuts (auto) Absolute Nucleated RBC Nucleated RBC % (auto) Smear Tech's Comments ABG pH ABG pCO2 ABG pO2 ABG HCO3 ABG O2 Saturation ABG Base Excess VBG pH 7.36 VBG pCO2 48 VBG pO2 39 VBG HCO3 26 VBG O2 Saturation 67.2 VBG Base Excess 0.1 Oxygen Given Sodium 146 H Potassium 5.2 H Chloride 110 H Carbon Dioxide 23 Anion Gap 18 BUN 120 H* Creatinine 1.54 H Estim Creat Clear Calc 39.9 Estimated GFR 43 Random Glucose 138 H Calcium 8.4 Phosphorus 4.8 H Magnesium 4.0 H* Albumin 3.0 L U Random Total Protein Ur Random Sodium < 20.0 Urine Creatinine Microbiology Microbiology Results: Microbiology 03/24/20 10:32 Blood - Venous Blood Culture - Final No growth after 5 days. 03/24/20 10:20 Blood - Venous Blood Culture - Final No growth after 5 days. Progress Note: A&P Time Spent With Patient Time: Total time spent is greater than 50% in coordination of care (as documented) at patient's floor/unit and/or counseling patient: Total time spent with greater than 50% in coordination of care (as documented) at patient's floor/unit and/or counseling patient:: 0 Critical Care Time Critical Care Time (minutes): 150
[2020-04-03] MEDS: Dextrose 5 % 250 ML 999 ML IVCONT (14:37)
[2020-04-03] MEDS: Dextrose 5 % 1,000 ML 100 ML IVCONT ×2 (14:38→23:53)
[2020-04-03 15:07] LABS: SARS COV2 IgG Positive (Negative)
[2020-04-03 16:10] LABS: C Reactive Protein 5.68 mg/dL (< or = 0.50)
[2020-04-03 16:15] LABS: D Dimer 5595 NG/ML
[2020-04-03] MEDS: Enoxaparin Sodium 40 MG/0.4 ML SYRINGE SUBCUT ×2 (16:17→16:53)
[2020-04-03 16:22] LABS: B Type Natriuretic Peptide < 10 pg/mL (<100)
[2020-04-03 16:32] LABS: Procalcitonin 0.14 ng/mL
[2020-04-03 17:10] LABS: Ferritin 2963 ng/mL (20-250)
--- NOTE | 2020-04-03 18:38 | PC.NURSE ---
Pt was on CPAP 100% most of the morning. Pt kept asking for davi- tried to wean pt down - put on 100% hiflow and NRB - gave pt few bites of davi which he was satisfied with. In about 20 min on the hi-flow and NRB pt started to desat while lying in bed- pt placed on BIPAP at this time sat 94%.
[2020-04-03] MEDS: methylPREDNISolone Sod Succ/PF 125 MG/2 ML VIAL 80 MG IVPUSH (22:34)
[2020-04-03] MEDS: Famotidine/PF 20 MG/2 ML VIAL IVPUSH (22:34)
[2020-04-03] MEDS: Thiamine HCL 200 MG in 0.9 % Sodium Chloride 100 ML 204 MG IV (22:35)
[2020-04-04] VITALS (32 sets, daily range): BP systolic 114–157; BP diastolic 48–86; PULSE 78–89; RESP 20–38; TEMP 36.3–36.8; O2SAT 87–99; BMI 27.6
[2020-04-04] MEDS: Enoxaparin Sodium 80 MG/0.8 ML SYRINGE SUBCUT (05:34)
--- NOTE | 2020-04-04 06:31 | PC.NURSE ---
CARE [id number]....DROWSY BUT AWAKENS SPONTANEOUSLY...CPAP 12CM/FIO2 90%...RR 28-32...Ve 12-20 l/m...sao2 improved right side downward...SaO2 96-98% RIGHT SIDE DOWN...SAO2 92-94% LEFT SIDE DOWN...RAPIDLY DESATS TO 70-74% WHEN CPAP BRIEFLY OFF FOR ORAL CARE...WET COUGH WHEN ATTEMPTS TO DRINK H20....ATRIAL FIB CONTROLLED RATE...VOICE HOARSE...ABLE TO RELATE WORKED 2ND SHIFT RT WHEN WORKING AND ABLE TO REQUEST WATCH FROM PERSONAL BELONGINGS...OLSON YELLOW URINE...D5W CONTINUES 100 CC/HR PER ICU PA. NAPPING INTERMITTANTLY OVERNIGHT
[2020-04-04 06:37] LABS: Base Excess VBG 0.1 mmol/L; HCO3 VBG 28 mmol/L; Oxygen Saturation VBG 62.3 %; PCO2 VBG 55 mmhg; PO2 VBG 36 mmhg; pH VBG 7.32 (7.32-7.43)
[2020-04-04 06:46] LABS: INTERNATIONAL NORM RATIO 2.2 (0.9-1.1); Prothrombin Time 25.8 SEC (10.8-13.0)
[2020-04-04 06:49] LABS: Basophils Percent Auto 0.1 % (0-2); MANUAL DIFF FLAG SCAN; Monocytes Absolute Auto 0.9 X10*3/uL (0.1-1.2); Red Cell Distribution Width 15.8 % (11.0-16.0); SCAN SMEAR FLAG 1
[2020-04-04 06:51] LABS: Hematocrit 49.7 % (42-52); Hemoglobin 16.2 g/dl (14.0-18.0); Imm Gran Abs Auto 0.17 X10*3/uL (0.00-0.03); Imm Gran Pct Auto 0.7 % (0.0-0.4); Lymphocytes Absolute Auto 0.7 X10*3/uL (1.2-4.9); Lymphocytes Percent Auto 3.1 % (20-40); Mean Corpuscular HGB Conc 32.6 g/dl (31.0-36.0); Mean Corpuscular Hemoglobin 29.9 pg (27.0-33.0); Mean Corpuscular Volume 91.7 fL (80-98); Monocytes Percent Auto 3.7 % (2-11); Neutrophils Absolute Auto 21.6 X10*3/uL (2.0-8.3); Neutrophils Percent Auto 92.4 % (45-73); PLT CLUMP 1; Red Blood Count 5.42 X10*6/uL (4.60-5.80)
[2020-04-04 07:01] LABS: D Dimer 3410 NG/ML
[2020-04-04 07:14] LABS: PLT ABN DIST 1
[2020-04-04 07:25] LABS: Alanine Aminotransferase 22 U/L (0-40); Albumin Level 2.9 g/dL (3.5-5.0); Alkaline Phosphatase 70 U/L (39-117); Anion Gap 13 (12-20); Aspartate Amino Transferase 27 U/L (5-37); Bilirubin Total 1.4 mg/dL (0.0-1.0); Calcium 8.1 mg/dL (8.4-10.2); Carbon Dioxide 29 mmol/L (22-29); Chloride 107 mmol/L (96-108); Creatinine Clr Calc Pharmacy 38.4; Estimated Glomerular Filt Rate 43; Glucose Random 293 mg/dL (60-115); Magnesium 4.1 mg/dL (1.6-2.6); Phosphorus 4.6 mg/dL (2.7-4.5); Potassium 5.3 mmol/l (3.3-5.1); Sodium 144 mmol/L (135-145); Total Protein 5.9 g/dL (6.5-8.0)
[2020-04-04 07:36] LABS: Blood Urea Nitrogen 120 mg/dL (9-16)
[2020-04-04] MEDS: 0.9 % Sodium Chloride Flush 3 ML SYRINGE IVFLUSH ×3 (07:41→23:51)
[2020-04-04] MEDS: Famotidine/PF 20 MG/2 ML VIAL IVPUSH ×2 (07:43→20:44)
[2020-04-04 07:59] LABS: Ferritin 3064 ng/mL (20-250)
[2020-04-04 08:11] LABS: Platelet Count 101 X10*3/uL (160-400); White Blood Count 23.4 X10*3/uL (4.8-10.8)
[2020-04-04 08:12] LABS: SLIDE REVIEW VERIFIED
[2020-04-04 08:22] LABS: Reflex Lactate? Lactic Acid Added
[2020-04-04 09:54] LABS: Sodium Urine Random < 20.0 mmol/L
--- NOTE | 2020-04-04 10:00 | CA_ITS ---
Transthoracic Echocardiogram Patient (Last, First, Middle): Cristian Us J Gender: Male Date of : 1935 Age: 84 Procedure Date: 04/04/2020 Procedure Type: Transthoracic Echocardiogram Location: ICU Height: 172.72 cm Weight: 82.1 kg BSA: 1.96 m2 Heart Rate: bpm BP: 123 / 78 mmHg Maintenance Supervisor 2Nd Shift: BARBARA Referring MD: Alvin Tarango Pipelines Superintendent: Nickolas Arnett MD Symptoms: acute respiratory failure, r/o CHF, r/o PE. Study Quality: Fair ECG Rhythm: Atrial Fibrillation Conclusions: - 1. Severely dilated ascending aorta at 5.1 cm 2. Normal LV systolic function with mild LVH 3. Moderately enlarged left atrium 4. Mild aortic and mitral regurgitation 5. Normal RV systolic pressure 6. No pericardial effusion Findings Left Ventricle Normal left ventricular size and systolic function. There is mildly increased left ventricular wall thickness. The visually estimated ejection fraction is between 60-65%. Diastolic function is indeterminate on the basis of available data. Right Ventricle Normal right ventricular cavity size. There is normal right ventricular systolic function. Atria The left atrium is moderately dilated. Interatrial shunt cannot be excluded. The right atrium is likely dilated. Aortic Valve The aortic valve was not well visualized. There is no aortic valve stenosis. There is mild aortic valve regurgitation. Mitral Valve There is mild anterior and posterior mitral leaflet thickening. There is mild mitral valve regurgitation. There is no mitral valve stenosis. Pulmonic Valve The pulmonic valve was not well visualized. There is trace to mild pulmonic valve regurgitation. Tricuspid Valve The tricuspid valve was not well visualized. There is mild tricuspid valve regurgitation. The right ventricular systolic pressure is normal. Normal right atrial pressure. There is no evidence of pulmonary hypertension. Great Vessels The pulmonary artery was not well visualized. There is severe dilatation of the ascending aorta measuring 5.10 cm. Venous The inferior vena cava is normal in size and collapses greater than 50% with inspiration. Pericardium/Pleural There is no evidence of pericardial effusion. Prior Study Comparison Changes noted compared to prior study dated: 04/22/2019. Ascending aorta is severely dilated on this study. Measurements 2D Linear Measurements IVSd: 1.23 0.6-0.9/0.6-1.0 cm LVIDd: 4.12 3.9-5.3/4.2-5.9 cm LVIDd Index: 2.10 2.4-3.2/2.2-3.1 cm/m2 LVIDs: 3.42 2.0-3.6 cm LVPWd: 1.24 0.7-1.1 cm Ao Root: 4.40 2.1-3.5 cm LA Diam: 3.80 2.7-3.8/3.0-4.0 cm LAIDs Index: 1.94 1.5-2.3 cm/m2 LV Mass: 224.91 67-162/88-224 g LV Mass Index: 114.75 43-95/49-115 g/m2 LVOT Diam: 2.50 3.0+(-)1.3 cm 2D Systolic Function EF 4C: 66.00 >55% EF 2C: 61.70 >55% EF BiP: 62.80 >55% Mitral Valve MV Pk E: 0.81 MV Decel Time: 120.00 E'Lateral: 9.09 E'Medial: 8.32 E/E' Med: 9.70 E/E' Lat: 8.90 Aortic Valve AoV Pk Chandra: 1.72 AoV Mn Chandra: 1.17 AoV VTI: 0.28 AoV Pk Grad: 12.00 Aov Mn Grad: 6.00 TYLER Cont.VTI: 2.29 LVOT LVOT Pk Chandra: 0.77 LVOT Mn Chandra: 0.55 LVOT VTI: 0.13 LVOT Pk Grad: 2.00 LVOT Mn Grad: 1.00 LVOT Diam: 2.50 LVOT Area: 4.91 Diastolic Function MV Pk E: 0.81 E'Medial: 8.32 E/E' Med: 9.70 E' Laterial: 9.09 E/E' Lat: 8.90 Tricuspid Valve TR Pk Chandra: 2.89 TR Pk Grad: 33.00 RA Press: 3.00 RVSP: 36.00 Great Vessels Aorta Ao Root-2D: 4.40 2.0-3.7 cm Ao Asc: 5.10 2.1-3.4 cm Pulmonary Valve PV Pk Chandra: 1.03 Peak PV Grad: 4.00 Updated in Other Vendor System with Status of Final Nickolas Arnett MD electronically signed on 04/04/2020 10:58:11 AM with status of Final
--- NOTE | 2020-04-04 10:24 | P.PNCC_ITS ---
Subjective Subjective Date of Service: 04/04/20 Interval History: Mr. Us was admitted to ICU on Mar 30 for acute respiratory failure secondary to COVID pneumonia. 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 His was diagnosed with COVID-19 at the beginning of March. He began having symptoms on March 18; his 's symptoms have since resolved. He was admitted to [facility] on 03/24/2020 with progressive hypoxemia secondary to COVID-19. Presenting sat was 80% on room air. Lab work revealed elevated ferritin of 1492, LDH of 426 and CRP of 8.67. Chest x-ray was unremarkable. He required oxygen by Venti mask to maintain oxygen saturations above 90. Hospital course was significant for progressive hypoxemia, despite treatment with remdesivir and dexamethasone. Escalating FiO2 requirements required noninvasive positive pressure ventilation, for which he was transferred to ICU on Mar 30. He was given DVT prophylaxis level-Lovenox. Hospital course further complicated by progressive coagulopathy and acute kidney injury. The patient?s mental status has remained good, but he?s been requiring CPAP continuously. We tried high-flow nasal cannula with non-rebreather face mask yesterday, and he tolerated only for about half an hour, with his sat dropping and his work of breathing increasing. Had to go back on the BiPAP. Because his chest x-ray yesterday was fairly unimpressive, we sent him for a noncontrast chest CT which showed diffuse bilateral infiltrates throughout almost the entire lung, consistent with coronavirus disease, although the infiltrates were not as dense as some that we have seen (which probably accounts for why he has not yet required mechanical ventilation). Duplex scan of the lower extremities yesterday showed clot throughout the right lower extremity and in the left calf. We started him yesterday on the [facility] COVID protocol, with Solumedrol 80 mg bid and Lovenox 1 mg/kg bid, along with the other protocol medications that could be given intravenously (Pepcid and thiamine). He can?t take pills bec he can?t take the NIV mask off. We also started him on a D5W infusion because of hypernatremia and because of a markedly elevated renal ratio, with a low urine sodium. Overnight remained on CPAP 12 cm. This morning's central venous blood gas showed an increase in his pCO2 to 55 with corresponding drop in his pH. On exam today, the patient remains alert and appropriate. I asked him if he could breathe like this for another 2 weeks. He wrote me a note that said ?no surrender? and ?no giving up?. See Vital Signs below. He continues afebrile. Heart rhythm is atrial fibrillation but reasonably controlled. RR high 20?s-30 on 90% CPAP +12, with Ve 25L, Sat low-mid 90?s. No gross access muscle use, no incr WOB other than that attributable to his respiratory rate. No pressors. No JVD. Normal expiratory phase. Abdomen benign. No edema. LABORATORY DATA: As noted. Notably, D-dimer is way down to 3410. Sodium is down to 144, BUN and creatinine are unchanged from yesterday at 120/1.5, lactic acid is 3.0, phosphorus is still relatively low, ferritin is up slightly, total bili is down. Urine sodium is still less than 20. ECHOCARDIOGRAM today notable for: 1. Normal LV systolic function with mild LVH. 2. Normal right ventricular cavity size, w normal right ventricular fxn. 3. Moderately enlarged left atrium 4. Mild aortic and mitral regurgitation 5. Normal RV systolic pressure 6. Severely dilated ascending aorta at 5.1 cm IMPRESSION: 1. Bilateral COVID-19 ARDS. 2. Acute hypoxemic and hypercarbic respiratory failure. Secondary to above and possible pulmonary VTE (suggested by the severe hypoxemia w high DDimer ). He won?t be able to maintain this high a Ve. We?ll change him to BiPAP and recheck VBG later today. 3. Marked D-dimer elevation with bilateral DVT, and severe hypoxemia. Suggest t he possibility of pulmonary VTE, c/w COVID-9, although the normal BNP and normal troponin would be inconsistent with macro thrombi (i.e. the usual pulmonary emboli, either massive or submassive). We bumped his Lovenox to 1 mg/kg bid yesterday. We considered half dose tPA (per the [facility] protocol), but decided against it in the face of the noncontrast CT results. Given the rising pCO2 however, christy in the face of the very high Ve with high Vt?s (ie low space fraction), we?re? going to plan to give half dose tPA tomorrow morning, after holding the Lovenox for 24hrs. 4. TYE. Secondary to COVID-19, plus dehydration. Hydrating with D5W. Hb is slightly lower today but urine sodium is still less than 20, renal ratio still very high. I upped his D5W to 150/hour. Follow renal indices and urine-Na. 5. Hypernatremia. Rx w D5W. 6. Afib. Rate reasonably controlled on no medications. Holding Lovenox pending tPA tomorrow morning. 7. Earlier coagulopathy. Unexplained. Possibly 2? Coumadin + dietary deficiency. Bec the INR is up again today, I?ll give him another two doses of 10mg Vit K. 8. ID. No abx indicated (yet). 9. Nutrition. We will start TPN. Discussed at length with pharmacy and dietary. Prognosis is poor, given his age. Not sure how much longer he?ll be able to go without being intubated. Venous pCO2 already up to 48. Spoke with his at length today and discussed all the above, in particular the implications of his high minute volume, and how much longer he is going to be able to breathe like this before he requires intubation and mechanical ventilation, after which his mortality risk rises greatly and rises above 90%. Also discussed giving him the tPA as a last ditch effort. Discussed the risks and benefits. She agreed to that, despite the risk of bleeding. I also noted to her that if he winds up intubated, the likelihood is that he would need tracheostomy. Her response to that was that he would not like that. Critical care time (including extended discussion with pharmacy re tPA and TPN, and with Dr. Wade): 2+ hrs. Physical Exam Vital Signs: Vital Signs: Last Vital Signs Temp 97.3 F 04/04/20 10:00 Pulse 84 04/04/20 10:00 Resp 84 H 04/04/20 10:00 BP 146/48 H 04/04/20 10:00 Pulse Ox 98 04/04/20 10:00 Body Mass Index 27.6 Objective Data Labs CBC & Chem 7: 04/04/20 05:50 04/04/20 05:50 Labs: Laboratory Results - last 24 hr 12/21/20 12/21/20 12/21/20 06:56 12:05 15:28 WBC RBC Hgb Hct MCV MCH MCHC RDW Plt Count MPV Immature Gran % (Auto) Neut % (Auto) Lymph % (Auto) [place] % (Auto) Eos % (Auto) Baso % (Auto) Lymph # (Auto) [place] # (Auto) Eos # (Auto) Baso # (Auto) Abs Immat Gran (auto) Absolute Neuts (auto) Absolute Nucleated RBC Nucleated RBC % (auto) Smear Tech's Comments PT INR D-Dimer 5595 VBG pH VBG pCO2 VBG pO2 VBG HCO3 VBG O2 Saturation VBG Base Excess Sodium Potassium Chloride Carbon Dioxide Anion Gap BUN Creatinine Estim Creat Clear Calc Estimated GFR Random Glucose Lactic Acid Calcium Phosphorus Magnesium Ferritin Total Bilirubin AST ALT Alkaline Phosphatase Troponin I High Sens C-Reactive Protein B-Natriuretic Peptide Total Protein Albumin Procalcitonin Ur Random Sodium < 20.0 SARS-CoV-2 IgG Ab Positive 04/03/20 04/03/20 04/03/20 15:28 15:28 15:28 WBC RBC Hgb Hct MCV MCH MCHC RDW Plt Count MPV Immature Gran % (Auto) Neut % (Auto) Lymph % (Auto) [place] % (Auto) Eos % (Auto) Baso % (Auto) Lymph # (Auto) [place] # (Auto) Eos # (Auto) Baso # (Auto) Abs Immat Gran (auto) Absolute Neuts (auto) Absolute Nucleated RBC Nucleated RBC % (auto) Smear Tech's Comments PT INR D-Dimer VBG pH VBG pCO2 VBG pO2 VBG HCO3 VBG O2 Saturation VBG Base Excess Sodium Potassium Chloride Carbon Dioxide Anion Gap BUN Creatinine Estim Creat Clear Calc Estimated GFR Random Glucose Lactic Acid Calcium Phosphorus Magnesium Ferritin 2963 H Total Bilirubin AST ALT Alkaline Phosphatase Troponin I High Sens 29.0 D C-Reactive Protein 5.68 H B-Natriuretic Peptide < 10 Total Protein Albumin Procalcitonin 0.14 Ur Random Sodium SARS-CoV-2 IgG Ab 04/04/20 04/04/20 04/04/20 05:50 05:50 05:50 WBC 23.4 H RBC 5.42 Hgb 16.2 Hct 49.7 MCV 91.7 MCH 29.9 MCHC 32.6 RDW 15.8 Plt Count 101 L MPV Not Reportable Immature Gran % (Auto) 0.7 H Neut % (Auto) 92.4 H Lymph % (Auto) 3.1 L [place] % (Auto) 3.7 Eos % (Auto) 0.0 Baso % (Auto) 0.1 Lymph # (Auto) 0.7 L [place] # (Auto) 0.9 Eos # (Auto) 0.0 Baso # (Auto) 0.0 Abs Immat Gran (auto) 0.17 H Absolute Neuts (auto) 21.6 H Absolute Nucleated RBC 0.000 Nucleated RBC % (auto) 0.0 Smear Tech's Comments VERIFIED PT 25.8 H D INR 2.2 H D-Dimer 3410 VBG pH VBG pCO2 VBG pO2 VBG HCO3 VBG O2 Saturation VBG Base Excess Sodium 144 Potassium 5.3 H Chloride 107 Carbon Dioxide 29 Anion Gap 13 BUN 120 H* Creatinine 1.55 H Estim Creat Clear Calc 38.4 Estimated GFR 43 Random Glucose 293 H D Lactic Acid Calcium 8.1 L Phosphorus 4.6 H Magnesium 4.1 H* Ferritin 3064 H Total Bilirubin 1.4 H AST 27 ALT 22 Alkaline Phosphatase 70 Troponin I High Sens C-Reactive Protein B-Natriuretic Peptide Total Protein 5.9 L Albumin 2.9 L Procalcitonin Ur Random Sodium SARS-CoV-2 IgG Ab 04/04/20 04/04/20 04/04/20 05:50 05:50 09:00 WBC RBC Hgb Hct MCV MCH MCHC RDW Plt Count MPV Immature Gran % (Auto) Neut % (Auto) Lymph % (Auto) [place] % (Auto) Eos % (Auto) Baso % (Auto) Lymph # (Auto) [place] # (Auto) Eos # (Auto) Baso # (Auto) Abs Immat Gran (auto) Absolute Neuts (auto) Absolute Nucleated RBC Nucleated RBC % (auto) Smear Tech's Comments PT INR D-Dimer VBG pH 7.32 VBG pCO2 55 VBG pO2 36 VBG HCO3 28 VBG O2 Saturation 62.3 VBG Base Excess 0.1 Sodium Potassium Chloride Carbon Dioxide Anion Gap BUN Creatinine Estim Creat Clear Calc Estimated GFR Random Glucose Lactic Acid 3.0 H* Calcium Phosphorus Magnesium Ferritin Total Bilirubin AST ALT Alkaline Phosphatase Troponin I High Sens C-Reactive Protein B-Natriuretic Peptide Total Protein Albumin Procalcitonin Ur Random Sodium < 20.0 SARS-CoV-2 IgG Ab Microbiology Microbiology Results: Microbiology 03/24/20 10:32 Blood - Venous Blood Culture - Final No growth after 5 days. 03/24/20 10:20 Blood - Venous Blood Culture - Final No growth after 5 days. Progress Note: A&P Time Spent With Patient Time: Total time spent is greater than 50% in coordination of care (as documented) at patient's floor/unit and/or counseling patient: Total time spent with greater than 50% in coordination of care (as documented) at patient's floor/unit and/or counseling patient:: 0 Critical Care Time Critical Care Time (minutes): 120
[2020-04-04] MEDS: Phytonadione (Vit K1) 10 MG in 0.9 % Sodium Chloride 50 ML 51 MG IV ×2 (10:34→20:44)
[2020-04-04] MEDS: Thiamine HCL 200 MG in 0.9 % Sodium Chloride 100 ML 204 MG IV (10:34)
[2020-04-04] MEDS: methylPREDNISolone Sod Succ/PF 125 MG/2 ML VIAL 80 MG IVPUSH ×2 (10:35→22:49)
--- NOTE | 2020-04-04 11:01 | MHC.CLN ---
F/U PT TO START TPN RECOMMEND DAY ONE: D15 AA5% AT 45CC/HR TO RPOVIDE 767KCALS, 54G PROTEIN DAY 2 (04/05) INCREASE TO 65CC/HR TO PROVIDE 1108KCALS, 78G PROTEIN (1.0G/KG) CHECK TRIGS DAY 3 (04/06) INCREASE FORMULA TO 75CC/HR AND ADD 20 ML OF 20% LIPIDS X 12 HRS TO PROVIDE 1758KCALS TOTAL (23KCALS/KG), 90G PROTEIN (1.2G/KG) MONITOR LYTES, REPLETE NEEDED
[2020-04-04 12:30] LABS: Reflex Lactate? 2 Y
[2020-04-04 13:21] LABS: ~Lactic Acid-LAB USE ONLY 2.9 mmol/L (0.5-2.0)
--- NOTE | 2020-04-04 14:21 | PC.NURSE ---
Addendum entered by Corina Melendez RN 04/04/20 18:24: Patient switched to BiPAP settings of 16/10 85%fio2 around 1030 with 02 sats trending in the low 90s. Patient tolerating well. Original Note: Patient remains on CPAP 12 and fi02 of 90% with o2 sats trending in the mid 90s at rest. Patient still drowsy but easily arousable to verbal stimulus, MD aware. Afebril, HR in the 80s, SBP trending in the 130s. Unable to give PO Norvasc, Lisinopril, nutrients, or provide frequent mouth care d/t patient desatting into the low 80s when CPAP mask removed, Dr. Tarango aware. IV medications and TPN to be ordered. Patient educated on plan of care and medications. Patient nodding his head to understanding. Following critical values reported to Dr. Tarango: Lactic of 3.0 x2 and 2.9 and Magnesium 4.1. No new orders received by this RN. Patient repo q2h but patient desatting into the low 80s with position changes d/t COVID PNA, increased respiratory effort, and oxygen requirements. Patient remains on Airtap mattress system with wedges for positioning as well as an airloss bed. Preventative foam dsg applied to coccyx. Patient's updated by this RN and Dr. Tarango.
--- NOTE | 2020-04-04 14:39 | PM.PNNEP ---
Subjective Subjective Date of Service: 04/04/20 Interval history: seen and examined lethargic BIPAP on Physical Exam Vital Signs: Vital Signs: Last Vital Signs Temp 97.7 F 04/04/20 13:00 Pulse 83 04/04/20 14:00 Resp 25 H 04/04/20 14:00 BP 137/70 04/04/20 14:00 Pulse Ox 91 L 04/04/20 14:00 Body Mass Index 27.6 Const: General: ill appearing HENMT: Head: Yes normocephalic and Yes atraumatic Neck: Neck: Yes supple Resp: Auscultation: diminished lung sounds Cardio: Heart sounds: S1 normal heart sound present and S2 normal heart sound present GI: Palpation (GI): Soft to palpation and nontender Extrem: General: No edema Objective Data Labs CBC & Chem 7: 04/04/20 05:50 04/04/20 05:50 Labs: Laboratory Results - last 24 hr 04/03/20 04/03/20 04/03/20 06:56 15:28 15:28 WBC RBC Hgb Hct MCV MCH MCHC RDW Plt Count MPV Immature Gran % (Auto) Neut % (Auto) Lymph % (Auto) [place] % (Auto) Eos % (Auto) Baso % (Auto) Lymph # (Auto) [place] # (Auto) Eos # (Auto) Baso # (Auto) Abs Immat Gran (auto) Absolute Neuts (auto) Absolute Nucleated RBC Nucleated RBC % (auto) Smear Tech's Comments PT INR D-Dimer 5595 VBG pH VBG pCO2 VBG pO2 VBG HCO3 VBG O2 Saturation VBG Base Excess Sodium Potassium Chloride Carbon Dioxide Anion Gap BUN Creatinine Estim Creat Clear Calc Estimated GFR Random Glucose Lactic Acid Lactic Acid Fup @ 2Hr Lactic Acid Fup @ 4Hr Calcium Phosphorus Magnesium Ferritin 2963 H Total Bilirubin AST ALT Alkaline Phosphatase Troponin I High Sens C-Reactive Protein 5.68 H B-Natriuretic Peptide Total Protein Albumin Procalcitonin Ur Random Sodium SARS-CoV-2 IgG Ab Positive 04/03/20 04/03/20 04/04/20 15:28 15:28 05:50 WBC 23.4 H RBC 5.42 Hgb 16.2 Hct 49.7 MCV 91.7 MCH 29.9 MCHC 32.6 RDW 15.8 Plt Count 101 L MPV Not Reportable Immature Gran % (Auto) 0.7 H Neut % (Auto) 92.4 H Lymph % (Auto) 3.1 L [place] % (Auto) 3.7 Eos % (Auto) 0.0 Baso % (Auto) 0.1 Lymph # (Auto) 0.7 L [place] # (Auto) 0.9 Eos # (Auto) 0.0 Baso # (Auto) 0.0 Abs Immat Gran (auto) 0.17 H Absolute Neuts (auto) 21.6 H Absolute Nucleated RBC 0.000 Nucleated RBC % (auto) 0.0 Smear Tech's Comments VERIFIED PT INR D-Dimer VBG pH VBG pCO2 VBG pO2 VBG HCO3 VBG O2 Saturation VBG Base Excess Sodium Potassium Chloride Carbon Dioxide Anion Gap BUN Creatinine Estim Creat Clear Calc Estimated GFR Random Glucose Lactic Acid Lactic Acid Fup @ 2Hr Lactic Acid Fup @ 4Hr Calcium Phosphorus Magnesium Ferritin Total Bilirubin AST ALT Alkaline Phosphatase Troponin I High Sens 29.0 D C-Reactive Protein B-Natriuretic Peptide < 10 Total Protein Albumin Procalcitonin 0.14 Ur Random Sodium SARS-CoV-2 IgG Ab 04/04/20 04/04/20 04/04/20 05:50 05:50 05:50 WBC RBC Hgb Hct MCV MCH MCHC RDW Plt Count MPV Immature Gran % (Auto) Neut % (Auto) Lymph % (Auto) [place] % (Auto) Eos % (Auto) Baso % (Auto) Lymph # (Auto) [place] # (Auto) Eos # (Auto) Baso # (Auto) Abs Immat Gran (auto) Absolute Neuts (auto) Absolute Nucleated RBC Nucleated RBC % (auto) Smear Tech's Comments PT 25.8 H D INR 2.2 H D-Dimer 3410 VBG pH VBG pCO2 VBG pO2 VBG HCO3 VBG O2 Saturation VBG Base Excess Sodium 144 Potassium 5.3 H Chloride 107 Carbon Dioxide 29 Anion Gap 13 BUN 120 H* Creatinine 1.55 H Estim Creat Clear Calc 38.4 Estimated GFR 43 Random Glucose 293 H D Lactic Acid 3.0 H* Lactic Acid Fup @ 2Hr Lactic Acid Fup @ 4Hr Calcium 8.1 L Phosphorus 4.6 H Magnesium 4.1 H* Ferritin 3064 H Total Bilirubin 1.4 H AST 27 ALT 22 Alkaline Phosphatase 70 Troponin I High Sens C-Reactive Protein B-Natriuretic Peptide Total Protein 5.9 L Albumin 2.9 L Procalcitonin Ur Random Sodium SARS-CoV-2 IgG Ab 04/04/20 04/04/20 04/04/20 05:50 08:55 09:00 WBC RBC Hgb Hct MCV MCH MCHC RDW Plt Count MPV Immature Gran % (Auto) Neut % (Auto) Lymph % (Auto) [place] % (Auto) Eos % (Auto) Baso % (Auto) Lymph # (Auto) [place] # (Auto) Eos # (Auto) Baso # (Auto) Abs Immat Gran (auto) Absolute Neuts (auto) Absolute Nucleated RBC Nucleated RBC % (auto) Smear Tech's Comments PT INR D-Dimer VBG pH 7.32 VBG pCO2 55 VBG pO2 36 VBG HCO3 28 VBG O2 Saturation 62.3 VBG Base Excess 0.1 Sodium Potassium Chloride Carbon Dioxide Anion Gap BUN Creatinine Estim Creat Clear Calc Estimated GFR Random Glucose Lactic Acid Lactic Acid Fup @ 2Hr 3.0 H* Lactic Acid Fup @ 4Hr Calcium Phosphorus Magnesium Ferritin Total Bilirubin AST ALT Alkaline Phosphatase Troponin I High Sens C-Reactive Protein B-Natriuretic Peptide Total Protein Albumin Procalcitonin Ur Random Sodium < 20.0 SARS-CoV-2 IgG Ab 04/04/20 12:40 WBC RBC Hgb Hct MCV MCH MCHC RDW Plt Count MPV Immature Gran % (Auto) Neut % (Auto) Lymph % (Auto) [place] % (Auto) Eos % (Auto) Baso % (Auto) Lymph # (Auto) [place] # (Auto) Eos # (Auto) Baso # (Auto) Abs Immat Gran (auto) Absolute Neuts (auto) Absolute Nucleated RBC Nucleated RBC % (auto) Smear Tech's Comments PT INR D-Dimer VBG pH VBG pCO2 VBG pO2 VBG HCO3 VBG O2 Saturation VBG Base Excess Sodium Potassium Chloride Carbon Dioxide Anion Gap BUN Creatinine Estim Creat Clear Calc Estimated GFR Random Glucose Lactic Acid Lactic Acid Fup @ 2Hr Lactic Acid Fup @ 4Hr 2.9 H* Calcium Phosphorus Magnesium Ferritin Total Bilirubin AST ALT Alkaline Phosphatase Troponin I High Sens C-Reactive Protein B-Natriuretic Peptide Total Protein Albumin Procalcitonin Ur Random Sodium SARS-CoV-2 IgG Ab Microbiology Microbiology Results: Microbiology 03/24/20 10:32 Blood - Venous Blood Culture - Final No growth after 5 days. 03/24/20 10:20 Blood - Venous Blood Culture - Final No growth after 5 days. Assessment & Plan Assessment and plan (1) TYE (acute kidney injury): Status: Acute (2) Hyperkalemia: Status: Acute (3) COVID-19: Status: Acute Assessment and Plan: TYE in the setting of SARS COV 2 infection TYE due to compromised kidney perfusion BUN >> creatinine suggests pre renal state also on methyl prednisolone urine sodium < 20 consistent with pre renal state cannot exclude COVID related TYE volume status not consistent with hypervolemia elevated serum potassium due to impaired distal flow normal baseline kidney function REC TPN IVF (hypotonic) follow kidney function and electrolytes Time Spent With Patient Time: Total time spent is greater than 50% in coordination of care (as documented) at patient's floor/unit and/or counseling patient:
--- NOTE | 2020-04-04 14:42 | MHC.CM.PN ---
Per MD rounds, Positive COVID, remains on CPAP. Kidney labs worsening. DVT both legs. No HCP. Pt condition prohibits reviewing and signing one. Will continue to monitor for d/c needs.
[2020-04-04 17:25] LABS: HCO3 VBG 25 mmol/L; PCO2 VBG 43 mmhg; PO2 VBG 33 mmhg; pH VBG 7.39 (7.32-7.43)
[2020-04-04 17:26] LABS: Oxygen Saturation VBG 58.7 %
[2020-04-04 19:14] LABS: Cancel Lactic Acid Canceled
[2020-04-05] VITALS (32 sets, daily range): BP systolic 124–155; BP diastolic 48–91; PULSE 75–97; RESP 18–36; TEMP 36.4–36.9; O2SAT 90–98; BMI 28.1
[2020-04-05 05:56] LABS: Hemoglobin 15.7 g/dl (14.0-18.0); Imm Gran Pct Auto 0.7 % (0.0-0.4); Lymphocytes Percent Auto 2.9 % (20-40); MANUAL DIFF FLAG SCAN; PLT ABN DIST 1; SCAN SMEAR FLAG 1
[2020-04-05 05:58] LABS: Basophils Percent Auto 0.1 % (0-2); Hematocrit 47.8 % (42-52); Imm Gran Abs Auto 0.16 X10*3/uL (0.00-0.03); Lymphocytes Absolute Auto 0.7 X10*3/uL (1.2-4.9); Mean Corpuscular HGB Conc 32.8 g/dl (31.0-36.0); Mean Corpuscular Hemoglobin 30.1 pg (27.0-33.0); Mean Corpuscular Volume 91.6 fL (80-98); Monocytes Absolute Auto 1.1 X10*3/uL (0.1-1.2); Monocytes Percent Auto 4.9 % (2-11); Neutrophils Absolute Auto 21.3 X10*3/uL (2.0-8.3); Neutrophils Percent Auto 91.4 % (45-73); Platelet Count 123 X10*3/uL (160-400); Red Blood Count 5.22 X10*6/uL (4.60-5.80); Red Cell Distribution Width 15.5 % (11.0-16.0); White Blood Count 23.3 X10*3/uL (4.8-10.8)
[2020-04-05 06:02] LABS: INTERNATIONAL NORM RATIO 1.1 (0.9-1.1); Prothrombin Time 12.6 SEC (10.8-13.0)
[2020-04-05 06:12] LABS: D Dimer 2869 NG/ML
[2020-04-05 06:21] LABS: SLIDE REVIEW VERIFIED
--- NOTE | 2020-04-05 06:30 | PC.NURSE ---
REMAINS ON BIPAP / & FIO2 85%...REMAINS TACHYPNEIC...RR 28-32...Ve 15-22 l/m.... PER 24 HOURS AGO SAO2 IMPROVED RIGHT SIDE DOWN-BRANTLEY...[id number]% RIGHT SIDE DOWN...SAO2 87-90% LEFT SIDE DOWN...REMAINS CHRONIC ATRIAL FIB WITH CONTROLLED HR...RAPID DESATURATION WHEN MASK BRIEFLY OFF FOR ORAL CARE...WET COUGH WHEN SIP OF H20 ATTEMPTED
[2020-04-05 06:31] LABS: Alanine Aminotransferase 23 U/L (0-40); Albumin Level 2.8 g/dL (3.5-5.0); Alkaline Phosphatase 60 U/L (39-117); Anion Gap 13 (12-20); Aspartate Amino Transferase 23 U/L (5-37); Bilirubin Total 1.5 mg/dL (0.0-1.0); C Reactive Protein 4.15 mg/dL (< or = 0.50); Calcium 7.9 mg/dL (8.4-10.2); Carbon Dioxide 29 mmol/L (22-29); Chloride 110 mmol/L (96-108); Creatinine Clr Calc Pharmacy 38.5; Estimated Glomerular Filt Rate 43; Glucose Random 336 mg/dL (60-115); Magnesium 4.1 mg/dL (1.6-2.6); Potassium 5.4 mmol/l (3.3-5.1); Sodium 147 mmol/L (135-145); Total Protein 5.7 g/dL (6.5-8.0)
[2020-04-05 06:37] LABS: PCO2 VBG 50 mmhg; pH VBG 7.34 (7.32-7.43)
[2020-04-05 06:38] LABS: Base Excess VBG -0.2 mmol/L; HCO3 VBG 26 mmol/L; Oxygen Saturation VBG 68.3 %; PO2 VBG 39 mmhg
[2020-04-05 06:41] LABS: Lactic Acid 2.7 mmol/L (0.5-2.0)
[2020-04-05 06:45] LABS: Sodium Urine Random < 20.0 mmol/L
[2020-04-05 06:47] LABS: Blood Urea Nitrogen 114 mg/dL (9-16); Ferritin > 1500 ng/mL (20-250)
[2020-04-05 07:48] LABS: Reflex Lactate? Lactic Acid Added
[2020-04-05] MEDS: Famotidine/PF 20 MG/2 ML VIAL IVPUSH ×2 (07:53→22:27)
[2020-04-05] MEDS: 0.9 % Sodium Chloride Flush 3 ML SYRINGE IVFLUSH ×3 (07:55→22:38)
[2020-04-05 08:06] LABS: Procalcitonin 0.11 ng/mL
[2020-04-05 09:01] LABS: ~Lactic Acid-LAB USE ONLY 2.7 mmol/L (0.5-2.0)
[2020-04-05 10:23] LABS: Reflex Lactate? 2 Y
[2020-04-05] MEDS: methylPREDNISolone Sod Succ/PF 125 MG/2 ML VIAL 80 MG IVPUSH ×2 (10:35→22:27)
--- NOTE | 2020-04-05 11:14 | P.PNNP_ITS ---
Subjective Subjective Date of Service: 04/05/20 Interval history: seen and examined BIPAP on awake alert complains of SOB denies chest pain no nausea, vomiting or diarrhea Physical Exam Vital Signs: Vital Signs: Last Vital Signs Temp 98.1 F 04/05/20 11:00 Pulse 87 04/05/20 11:00 Resp 22 H 04/05/20 11:00 BP 137/78 04/05/20 11:00 Pulse Ox 98 04/05/20 11:00 Body Mass Index 28.1 Const: General: ill appearing HENMT: Head: Yes normocephalic and Yes atraumatic Neck: Neck: Yes supple Resp: Auscultation: diminished lung sounds Cardio: Heart sounds: S1 normal heart sound present and S2 normal heart sound present GI: Palpation (GI): Soft to palpation and nontender Extrem: General: No edema Objective Data Labs CBC & Chem 7: 04/05/20 05:33 04/05/20 05:33 Labs: Laboratory Results - last 24 hr 04/04/20 04/04/20 04/05/20 12:40 17:10 05:33 WBC 23.3 H RBC 5.22 Hgb 15.7 Hct 47.8 MCV 91.6 MCH 30.1 MCHC 32.8 RDW 15.5 Plt Count 123 L MPV Not Reportable Immature Gran % (Auto) 0.7 H Neut % (Auto) 91.4 H Lymph % (Auto) 2.9 L [place] % (Auto) 4.9 Eos % (Auto) 0.0 Baso % (Auto) 0.1 Lymph # (Auto) 0.7 L [place] # (Auto) 1.1 Eos # (Auto) 0.0 Baso # (Auto) 0.0 Abs Immat Gran (auto) 0.16 H Absolute Neuts (auto) 21.3 H Absolute Nucleated RBC 0.000 Nucleated RBC % (auto) 0.0 Smear Tech's Comments VERIFIED PT INR D-Dimer VBG pH 7.39 VBG pCO2 43 VBG pO2 33 VBG HCO3 25 VBG O2 Saturation 58.7 VBG Base Excess 0.0 Sodium Potassium Chloride Carbon Dioxide Anion Gap BUN Creatinine Estim Creat Clear Calc Estimated GFR Random Glucose Lactic Acid Lactic Acid Fup @ 2Hr Lactic Acid Fup @ 4Hr 2.9 H* Calcium Phosphorus Magnesium Ferritin Total Bilirubin AST ALT Alkaline Phosphatase C-Reactive Protein Total Protein Albumin Procalcitonin Ur Random Sodium 04/05/20 04/05/20 04/05/20 05:33 05:33 05:33 WBC RBC Hgb Hct MCV MCH MCHC RDW Plt Count MPV Immature Gran % (Auto) Neut % (Auto) Lymph % (Auto) [place] % (Auto) Eos % (Auto) Baso % (Auto) Lymph # (Auto) [place] # (Auto) Eos # (Auto) Baso # (Auto) Abs Immat Gran (auto) Absolute Neuts (auto) Absolute Nucleated RBC Nucleated RBC % (auto) Smear Tech's Comments PT 12.6 D INR 1.1 D-Dimer 2869 VBG pH VBG pCO2 VBG pO2 VBG HCO3 VBG O2 Saturation VBG Base Excess Sodium 147 H Potassium 5.4 H Chloride 110 H Carbon Dioxide 29 Anion Gap 13 BUN 114 H* Creatinine 1.56 H Estim Creat Clear Calc 38.5 Estimated GFR 43 Random Glucose 336 H Lactic Acid 2.7 H* Lactic Acid Fup @ 2Hr Lactic Acid Fup @ 4Hr Calcium 7.9 L Phosphorus 4.0 Magnesium 4.1 H* Ferritin > 1500 H Total Bilirubin 1.5 H AST 23 ALT 23 Alkaline Phosphatase 60 C-Reactive Protein 4.15 H Total Protein 5.7 L Albumin 2.8 L Procalcitonin Ur Random Sodium 04/05/20 04/05/20 04/05/20 05:33 05:33 05:33 WBC RBC Hgb Hct MCV MCH MCHC RDW Plt Count MPV Immature Gran % (Auto) Neut % (Auto) Lymph % (Auto) [place] % (Auto) Eos % (Auto) Baso % (Auto) Lymph # (Auto) [place] # (Auto) Eos # (Auto) Baso # (Auto) Abs Immat Gran (auto) Absolute Neuts (auto) Absolute Nucleated RBC Nucleated RBC % (auto) Smear Tech's Comments PT INR D-Dimer VBG pH 7.34 VBG pCO2 50 VBG pO2 39 VBG HCO3 26 VBG O2 Saturation 68.3 VBG Base Excess -0.2 Sodium Potassium Chloride Carbon Dioxide Anion Gap BUN Creatinine Estim Creat Clear Calc Estimated GFR Random Glucose Lactic Acid Lactic Acid Fup @ 2Hr Lactic Acid Fup @ 4Hr Calcium Phosphorus Magnesium Ferritin Total Bilirubin AST ALT Alkaline Phosphatase C-Reactive Protein Total Protein Albumin Procalcitonin 0.11 Ur Random Sodium < 20.0 12/23/20 08:07 WBC RBC Hgb Hct MCV MCH MCHC RDW Plt Count MPV Immature Gran % (Auto) Neut % (Auto) Lymph % (Auto) [place] % (Auto) Eos % (Auto) Baso % (Auto) Lymph # (Auto) [place] # (Auto) Eos # (Auto) Baso # (Auto) Abs Immat Gran (auto) Absolute Neuts (auto) Absolute Nucleated RBC Nucleated RBC % (auto) Smear Tech's Comments PT INR D-Dimer VBG pH VBG pCO2 VBG pO2 VBG HCO3 VBG O2 Saturation VBG Base Excess Sodium Potassium Chloride Carbon Dioxide Anion Gap BUN Creatinine Estim Creat Clear Calc Estimated GFR Random Glucose Lactic Acid Lactic Acid Fup @ 2Hr 2.7 H* Lactic Acid Fup @ 4Hr Calcium Phosphorus Magnesium Ferritin Total Bilirubin AST ALT Alkaline Phosphatase C-Reactive Protein Total Protein Albumin Procalcitonin Ur Random Sodium Microbiology Microbiology Results: Microbiology 03/24/20 10:32 Blood - Venous Blood Culture - Final No growth after 5 days. 03/24/20 10:20 Blood - Venous Blood Culture - Final No growth after 5 days. Assessment & Plan Assessment and plan (1) TYE (acute kidney injury): Status: Acute (2) Hyperkalemia: Status: Acute (3) COVID-19: Status: Acute Assessment and Plan: TYE in the setting of SARS COV 2 infection mild free water deficit TYE due to compromised kidney perfusion BUN >> creatinine suggests pre renal state also on methyl prednisolone urine sodium < 20 consistent with pre renal state cannot exclude COVID related TYE elevated serum potassium due to impaired distal flow normal baseline kidney function REC TPN change all drips to hyptonic fluid IVF (hypotonic) follow kidney function and electrolytes Time Spent With Patient Time: Total time spent is greater than 50% in coordination of care (as documented) at patient's floor/unit and/or counseling patient:
--- NOTE | 2020-04-05 11:59 | MHC.CM.PN ---
Patient remains in ICU on bipap. Patient was started on TPN and given TPA today. Patient is from home with his and had no services prior to being admitted. Continue to monitor for d/c needs.
--- NOTE | 2020-04-05 12:03 | MHC.CLN ---
F/U RECOMMEND TPN D15AA5% INCREASE TO 50CC/HR TO PROVIDE 852KCALS (1464KCALS WITH D5W; 19KCALS/KG), 60G PROTEIN (.8G/KG) DISCUSSED WITH PHARMACY MONITOR PARAMJIT
--- NOTE | 2020-04-05 14:41 | PC.NURSE ---
Pt oriented to person place, month-not day, requires reorientation. Remains on Bipap settings currently 16/10, 10, fiO2 titrated down to 70% to maintain SaO2 goal >86%. Pt requires transient FiO2 increase with repositioning and mouth care. SaO2 down to 76% with mouth care RT at bedside, takes time to recover. At rest SaO2 92%. Lung sounds clear in AM, rhonchi noted Left upper and lower lobes 1600. tPA ordered this shift. Reviewed with pharmacist, MD, and manager of transportation. Programmed into IV pump by 2 RNFiliberto ALBERTO at bedside during initiation of med. Neuro's checked prior to tPA, WNL, see neuro assessment. Checked after administration, no change, WNL. Pt tolerated well, no signs of bleeding. Pt remains afib rate controlled 70-80 occasional PVC, BP 130s/70s, afebrile. Mild edema R pedal.
--- NOTE | 2020-04-05 15:26 | P.PNCC_ITS ---
Subjective Subjective Date of Service: 04/05/20 Interval History: Mr. Us was admitted to ICU on Mar 30 for acute respiratory failure secondary to COVID pneumonia. 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 His was diagnosed with COVID-19 at the beginning of March. He began having symptoms on March 18; his 's symptoms have since resolved. He was admitted to [facility] on 03/24/2020 with progressive hypoxemia secondary to COVID-19. Presenting sat was 80% on room air. Lab work revealed elevated ferritin of 1492, LDH of 426 and CRP of 8.67. Chest x-ray was unremarkable. He required oxygen by Venti mask to maintain oxygen saturations above 90. He was admitted to medicine and treated with remdesivir and dexamethasone. Escalating FiO2 requirements required noninvasive positive pressure ventilation, for which he was transferred to ICU on Mar 30. He was given DVT prophylaxis level-Lovenox. Hospital course further complicated by progressive coagulopathy and acute kidney injury. In the ICU, the patient?s mental status has remained good, but he?s been requiri ng NIV by mask continuously. On Apr 03, we tried high-flow nasal cannula with non-rebreather face mask, but he tolerated it for only about half an hour, with his sat dropping and his work of breathing increasing. Because his chest x-ray was fairly unimpressive, we sent him for a noncontrast chest CT that day, which showed diffuse bilateral infiltrates throughout almost the entire lung, consistent with coronavirus disease, although the infiltrates were not as dense as some that we have seen (which probably accounts for why he has not yet required mechanical ventilation). Duplex scan of the lower extremities that day showed clot throughout the right lower extremity and in the left calf. So on Apr 03, he was started on the [facility] COVID protocol, with Solumedrol 80 mg bid and Lovenox 1 mg/kg bid, along with the other protocol medications that could be given intravenously (Pepcid and thiamine). He can?t take pills bec he can?t take the NIV mask off. We also started him on a D5W infusion because of hypernatremia and because of a markedly elevated renal ratio, with a low urine sodium. Yesterday morning (04/05) his minute volume on CPAP was up to 27Liters, and central venous pCO2 was up to 55mm. So we changed him over to BiPAP. Ve came down to 20L, and central venous pCO2 dropped to 43. We held his Lovenox for 24 hrs in order to give him tPA this morning. Overnight last night he did well. This morning's central venous blood gas showed 7.34/50/0. On exam today, he remains alert and fully appropriate. When I told him ?no surrender?, he gave me a broad smile and two thumbs up. See Vital Signs below. He continues afebrile. Heart rhythm is atrial fibrillation but reasonably controlled. On BiPAP 16/10/70%, RR is mid 20?s-30, Vt 700s, Ve 20-23L, Sat 90%. No gross access muscle use, no incr WOB other than that attributable to his respiratory rate. No pressors. No JVD. Normal expiratory phase. Abdomen benign. Absolutely no edema. I&Os: Over the day yest and last night, he got D5W at 150cc/hr. U/O averaging > 70cc/hr. LABORATORY DATA: As below. Notably, hemoglobin is down further (presumably secondary to hemodilution), PT is normalized after the vitamin K, sodium is up to 147 (despite the D5W infusion), BUN and creatinine are steady at 114/1.5, po tassium is up to 5.4, bicarb is 29, lactic acid still mildly elevated at 2.7, phosphorus still low, T bili steady. Urine sodium is still less than 20. D- dimer down further to 2800. ferritin still high, CRP is down, PCT is down. ECHOCARDIOGRAM yesterday (04/04) notable for: 1. Normal LV systolic function with mild LVH. 2. Normal right ventricular cavity size, w normal right ventricular fxn. 3. Moderately enlarged left atrium 4. Mild aortic and mitral regurgitation 5. Normal RV systolic pressure 6. Severely dilated ascending aorta at 5.1 cm IMPRESSION: 1. Bilateral COVID-19 ARDS. 2. Acute hypoxemic and hypercarbic respiratory failure. Secondary to above and possible pulmonary VTE (suggested by the severe hypoxemia w high DDimer ). Much improved pCO2 on BiPAP, even w reduced Ve. 3. Marked D-dimer elevation with bilateral DVT, and severe hypoxemia. Suggest the possibility of pulmonary VTE, c/w COVID-9, although the normal BNP and normal troponin would be inconsistent with macro emboli (i.e. the usual pulmonary emboli, either massive or submassive). Given the very high Ve requir jacqueline, we?re giving him half dose tPA over 24 hrs. I spoke to his at length again about this this morning to get her consent and she agreed. We spoke about the risk of intubation and the hope that the tPA would forestall that, and we spoke about the risks, christy the risks of bleeding, including an intracranial bleed that could kill him, and the fact that the risk was higher in people over age 75, but that we were mitigating that by giving only half dose, and giving it over 24 hrs instead of 2 hrs. She agreed on all counts. 4. TYE. Secondary to COVID-19, plus dehydration. Hydrating with D5W. Hb is slightly lower today but urine sodium is still less than 20, renal ratio still very high. Unclear where all the fluid is going -- must be insensible losses from his high Ve, bec he has not an ounce of edema. I upped his D5W to 200/hour. Follow renal indices and urine-Na. 5. Hypernatremia. Rx w D5W. 6. Hyperkalemia. Hope to improve renal fxn with fluids. Not able to take kayexelate. 7. Afib. Rate reasonably controlled on no medications. Holding Lovenox for tPA today. Restart anticoagulation tomorrow morning. 8. Earlier coagulopathy. Unexplained. Possibly 2? Coumadin + dietary deficiency. INR is normalized after another two doses of the 10mg Vit K. 9. ID. No abx indicated (yet). 10. Nutrition. Started TPN yesterday. Discussed at length with pharmacy and dietary. Prognosis is poor, given his age. Not sure how much longer he?ll be able to go without being intubated. Hoping the tPA improves his functional space. Critical care time (including mult extended discussions with pharmacy re tPA and TPN): 75+ min. Physical Exam Vital Signs: Vital Signs: Last Vital Signs Temp 98.1 F 04/05/20 14:00 Pulse 83 04/05/20 14:00 Resp 25 H 04/05/20 14:00 BP 138/77 04/05/20 14:00 Pulse Ox 92 04/05/20 14:00 Body Mass Index 28.1 Objective Data Labs CBC & Chem 7: 04/05/20 05:33 04/05/20 16:14 Labs: Laboratory Results - last 24 hr 04/04/20 04/05/20 04/05/20 17:10 05:33 05:33 WBC 23.3 H RBC 5.22 Hgb 15.7 Hct 47.8 MCV 91.6 MCH 30.1 MCHC 32.8 RDW 15.5 Plt Count 123 L MPV Not Reportable Immature Gran % (Auto) 0.7 H Neut % (Auto) 91.4 H Lymph % (Auto) 2.9 L [place] % (Auto) 4.9 Eos % (Auto) 0.0 Baso % (Auto) 0.1 Lymph # (Auto) 0.7 L [place] # (Auto) 1.1 Eos # (Auto) 0.0 Baso # (Auto) 0.0 Abs Immat Gran (auto) 0.16 H Absolute Neuts (auto) 21.3 H Absolute Nucleated RBC 0.000 Nucleated RBC % (auto) 0.0 Smear Tech's Comments VERIFIED PT 12.6 D INR 1.1 D-Dimer 2869 VBG pH 7.39 VBG pCO2 43 VBG pO2 33 VBG HCO3 25 VBG O2 Saturation 58.7 VBG Base Excess 0.0 Sodium Potassium Chloride Carbon Dioxide Anion Gap BUN Creatinine Estim Creat Clear Calc Estimated GFR Random Glucose Lactic Acid Lactic Acid Fup @ 2Hr Calcium Phosphorus Magnesium Ferritin Total Bilirubin AST ALT Alkaline Phosphatase C-Reactive Protein Total Protein Albumin Procalcitonin Ur Random Sodium 04/05/20 04/05/20 04/05/20 05:33 05:33 05:33 WBC RBC Hgb Hct MCV MCH MCHC RDW Plt Count MPV Immature Gran % (Auto) Neut % (Auto) Lymph % (Auto) [place] % (Auto) Eos % (Auto) Baso % (Auto) Lymph # (Auto) [place] # (Auto) Eos # (Auto) Baso # (Auto) Abs Immat Gran (auto) Absolute Neuts (auto) Absolute Nucleated RBC Nucleated RBC % (auto) Smear Tech's Comments PT INR D-Dimer VBG pH VBG pCO2 VBG pO2 VBG HCO3 VBG O2 Saturation VBG Base Excess Sodium 147 H Potassium 5.4 H Chloride 110 H Carbon Dioxide 29 Anion Gap 13 BUN 114 H* Creatinine 1.56 H Estim Creat Clear Calc 38.5 Estimated GFR 43 Random Glucose 336 H Lactic Acid 2.7 H* Lactic Acid Fup @ 2Hr Calcium 7.9 L Phosphorus 4.0 Magnesium 4.1 H* Ferritin > 1500 H Total Bilirubin 1.5 H AST 23 ALT 23 Alkaline Phosphatase 60 C-Reactive Protein 4.15 H Total Protein 5.7 L Albumin 2.8 L Procalcitonin 0.11 Ur Random Sodium 04/05/20 04/05/20 04/05/20 05:33 05:33 08:07 WBC RBC Hgb Hct MCV MCH MCHC RDW Plt Count MPV Immature Gran % (Auto) Neut % (Auto) Lymph % (Auto) [place] % (Auto) Eos % (Auto) Baso % (Auto) Lymph # (Auto) [place] # (Auto) Eos # (Auto) Baso # (Auto) Abs Immat Gran (auto) Absolute Neuts (auto) Absolute Nucleated RBC Nucleated RBC % (auto) Smear Tech's Comments PT INR D-Dimer VBG pH 7.34 VBG pCO2 50 VBG pO2 39 VBG HCO3 26 VBG O2 Saturation 68.3 VBG Base Excess -0.2 Sodium Potassium Chloride Carbon Dioxide Anion Gap BUN Creatinine Estim Creat Clear Calc Estimated GFR Random Glucose Lactic Acid Lactic Acid Fup @ 2Hr 2.7 H* Calcium Phosphorus Magnesium Ferritin Total Bilirubin AST ALT Alkaline Phosphatase C-Reactive Protein Total Protein Albumin Procalcitonin Ur Random Sodium < 20.0 Microbiology Microbiology Results: Microbiology 03/24/20 10:32 Blood - Venous Blood Culture - Final No growth after 5 days. 03/24/20 10:20 Blood - Venous Blood Culture - Final No growth after 5 days. Progress Note: A&P Time Spent With Patient Time: Total time spent is greater than 50% in coordination of care (as documented) at patient's floor/unit and/or counseling patient: Total time spent with greater than 50% in coordination of care (as documented) at patient's floor/unit and/or counseling patient:: 0 Critical Care Time Critical Care Time (minutes): 90
[2020-04-05 16:23] LABS: Cancel Lactic Acid Canceled
[2020-04-05 16:23] LABS: Base Excess VBG -0.3 mmol/L; HCO3 VBG 26 mmol/L; Oxygen Saturation VBG 63.5 %; PCO2 VBG 46 mmhg; PO2 VBG 36 mmhg; pH VBG 7.37 (7.32-7.43)
[2020-04-05 16:54] LABS: Calcium 8.2 mg/dL (8.4-10.2); Creatinine Clr Calc Pharmacy 38.5; Estimated Glomerular Filt Rate 43; Glucose Random 301 mg/dL (60-115)
[2020-04-05 17:12] LABS: Anion Gap 17 (12-20); Blood Urea Nitrogen 113 mg/dL (9-16); Carbon Dioxide 25 mmol/L (22-29); Chloride 113 mmol/L (96-108); Potassium 5.3 mmol/l (3.3-5.1); Sodium 150 mmol/L (135-145)
[2020-04-05] MEDS: Dextrose 5 % 1,000 ML 150 ML IVCONT ×2 (17:40→23:54)
[2020-04-05] MEDS: Insulin Regular/NS 100 UNIT/100 ML PLAST..BAG IVCONT (17:42)
[2020-04-05 20:09] LABS: Glucose, Whole Blood 302 mg/dL (60-115)
[2020-04-05 21:58] LABS: Glucose, Whole Blood 273 mg/dL (60-115)
[2020-04-05 23:59] LABS: Glucose, Whole Blood 214 mg/dL (60-115)
[2020-04-06] VITALS (29 sets, daily range): BP systolic 128–158; BP diastolic 55–110; PULSE 70–103; RESP 13–35; TEMP 36–36.5; O2SAT 80–100; BMI 28.2
--- NOTE | 2020-04-06 00:01 | PC.NURSE ---
Disoriented to time and situation. Wrote note to this RN asking, Can I go home tomorrow? Lethargic. Sleeping most of shift. Afib 70's-90's SBP 130's-150's 12.5 mg TPA given over 2 hours, as instructed by MD and pharmacy. TPN and D5W started for nutrition. Insulin gtt started and titrated per MD/PA. Continues on bipap 27/01. Satting low 90's at rest on 70% fio2. RR 16-24 at rest. Becomes dyspneic and desats to 70's with any exertion or brief removal of bipap mask. Patient mostly refusing oral care/hygeine. Allows moist swab on occasion, becomes winded quickly and pulls the bipap mask back on. updated.
[2020-04-06 02:20] LABS: Glucose, Whole Blood 203 mg/dL (60-115)
[2020-04-06 05:57] LABS: Basophils Percent Auto 0.1 % (0-2); Hemoglobin 14.3 g/dl (14.0-18.0); MANUAL DIFF FLAG SCAN; PLT ABN DIST 1; SCAN SMEAR FLAG 1
[2020-04-06 05:59] LABS: Hematocrit 44.7 % (42-52); Imm Gran Abs Auto 0.34 X10*3/uL (0.00-0.03); Imm Gran Pct Auto 1.5 % (0.0-0.4); Lymphocytes Absolute Auto 0.6 X10*3/uL (1.2-4.9); Lymphocytes Percent Auto 2.6 % (20-40); Mean Corpuscular Hemoglobin 29.5 pg (27.0-33.0); Mean Corpuscular Volume 92.4 fL (80-98); Mean Platelet Volume 13.7 fL (9.4-12.4); Monocytes Percent Auto 4.2 % (2-11); Neutrophils Absolute Auto 20.7 X10*3/uL (2.0-8.3); Neutrophils Percent Auto 91.6 % (45-73); Platelet Count 115 X10*3/uL (160-400); Red Blood Count 4.84 X10*6/uL (4.60-5.80); Red Cell Distribution Width 15.3 % (11.0-16.0); White Blood Count 22.6 X10*3/uL (4.8-10.8)
[2020-04-06 06:04] LABS: INTERNATIONAL NORM RATIO 1.1 (0.9-1.1); Prothrombin Time 12.5 SEC (10.8-13.0)
[2020-04-06 06:23] LABS: SLIDE REVIEW VERIFIED
[2020-04-06] MEDS: Dextrose 5 % 1,000 ML 150 ML IVCONT (06:23)
[2020-04-06 06:25] LABS: Sodium Urine Random < 20.0 mmol/L
[2020-04-06 06:27] LABS: Base Excess VBG 0.7 mmol/L; HCO3 VBG 28 mmol/L; Oxygen Saturation VBG 69.9 %; PCO2 VBG 53 mmhg; PO2 VBG 40 mmhg; pH VBG 7.33 (7.32-7.43)
[2020-04-06 06:29] LABS: Lactic Acid 2.2 mmol/L (0.5-2.0)
[2020-04-06 06:32] LABS: Anion Gap 12 (12-20); Blood Urea Nitrogen 111 mg/dL (9-16); C Reactive Protein 1.75 mg/dL (< or = 0.50); Calcium 7.6 mg/dL (8.4-10.2); Carbon Dioxide 27 mmol/L (22-29); Chloride 111 mmol/L (96-108); Creatinine Clr Calc Pharmacy 43.6; Estimated Glomerular Filt Rate 49; Glucose Random 303 mg/dL (60-115); Magnesium 3.8 mg/dL (1.6-2.6); Phosphorus 2.9 mg/dL (2.7-4.5); Potassium 5.1 mmol/l (3.3-5.1); Sodium 145 mmol/L (135-145)
[2020-04-06 07:50] LABS: Reflex Lactate? Lactic Acid Added
[2020-04-06 07:53] LABS: Ferritin 2983 ng/mL (20-250)
[2020-04-06] MEDS: 0.9 % Sodium Chloride Flush 3 ML SYRINGE IVFLUSH ×3 (08:06→23:51)
[2020-04-06] MEDS: Famotidine/PF 20 MG/2 ML VIAL IVPUSH ×2 (08:13→21:33)
[2020-04-06 09:16] LABS: Procalcitonin 0.09 ng/mL
[2020-04-06 10:07] LABS: Glucose, Whole Blood 243 mg/dL (60-115)
[2020-04-06] MEDS: fentaNYL citrate/NS 1,000 MCG/100 ML PLAST..BAG 2.5 MCG IVCONT (10:20)
[2020-04-06] MEDS: Insulin Regular/NS 100 UNIT/100 ML PLAST..BAG 6 UNIT IVCONT (10:56)
--- NOTE | 2020-04-06 11:33 | PM.CCPN ---
Subjective Subjective Date of Service: 04/06/20 Interval History: Mr. Us was admitted to ICU on Mar 30 for acute respiratory failure secondary to COVID pneumonia. 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 His was diagnosed with COVID-19 at the beginning of March. He began having symptoms on March 18; his 's symptoms have since resolved. He was admitted to [facility] on 03/24/2020 with progressive hypoxemia secondary to COVID-19. Presenting sat was 80% on room air. Lab work revealed elevated ferritin of 1492, LDH of 426 and CRP of 8.67. Chest x-ray was unremarkable. He required oxygen by Venti mask to maintain oxygen saturations above 90. He was admitted to medicine and treated with remdesivir and dexamethasone. Escalating FiO2 requirements required noninvasive positive pressure ventilation, for which he was transferred to ICU on Mar 30. He was given DVT prophylaxis level-Lovenox. Hospital course further complicated by coagulopathy and acute kidney injury. In the ICU, the patient?s mental status had remained good. He?s required NIV by mask almost continuously. On Apr 03, we tried high-flow nasal cannula with non-rebreather face mask, but he tolerated it for only about half an hour, with his sat dropping and his work of breathing increasing. A noncontrast chest CT on 04/03 showed diffuse bilateral infiltrates throughout almost the entire lung, consistent with coronavirus disease, although the infiltrates were not as dense as some that we have seen (which probably accounts for why he has not yet required mechanical ventilation). Duplex scan of the lower extremities that day showed clot throughout the right lower extremity and in the left calf. So we bumped his steroids to Solumedrol 80 mg bid and upped his anticoagulation to Lovenox 1 mg/kg bid, along w Pepcid and thiamine. He was also started him on a D5W infusion because of hypernatremia and because of a markedly elevated renal ratio, with a low urine sodium. On 04/05, his minute volume on CPAP was up to 27Liters, and central venous pCO2 was up to 55mm. So we changed him over to BiPAP, and Ve came down to 20L, with an improvement in his central venous pCO2 dropped to 43. Yesterday we held his Lovenox and gave him ? dose dPA. We also started him on an insulin drip. He did OK overnite, but has had no clear improvement in his breathing, his oxygenation, or his pCO2. On BiPAP 16/10/70%, RR is mid about 30, Vt 800-1050, Ve 27-30L, Sat low 90s. CVBG this morning showed 7.33/53/0 (up from PvCO2 46 yest afternoon). He?s easily arousable and gives me a thrumbs up, but he?s not quite as animated as he was yesterday. See Vital Signs below. He continues afebrile. Heart rhythm is atrial fibrillation but reasonably controlled. Very mild neck access muscle use today. No pressors. No JVD. Normal expiratory phase. Abdomen benign. 1-2+ ankle edema; no pretibial or central edema. I&Os: Over the day yest and last night, he got D5W at 200cc/hr. U/O averaging > 70cc/hr. LABORATORY DATA: As below. Notably, hemoglobin is down further (presumably secondary to hemodilution), PT is normalized after the vitamin K, sodium is up down to 145, BUN and creatinine are slightly down to 111/1.38, potassium is down to 5.1, lactic acid still mildly elevated at 2.2, phosphorus still low. Urine sodium is still less than 20[place] [address] after the tPA. ferritin still high but steady, CRP is down, PCT is down. ECHOCARDIOGRAM 04/04 notable for: 1. Normal LV systolic function with mild LVH. 2. Normal right ventricular cavity size, w normal right ventricular fxn. 3. Moderately enlarged left atrium 4. Mild aortic and mitral regurgitation 5. Normal RV systolic pressure 6. Severely dilated ascending aorta at 5.1 cm IMPRESSION: 1. Bilateral COVID-19 ARDS. No help from the tPA. I?m going to pulse him with steroids 1G x three days. Restart full anticoagulation with heparin gtt tomorrow. 2. Acute hypoxemic and hypercarbic respiratory failure. Secondary to above, and possible pulmonary VTE (suggested by the severe hypoxemia w high DDimer ). Did better on BiPAP, but the tPA doesn?t seen to have done much. His Ve is actually increased this morning, along with his WOB, and it?s possible that that is 2? to the CHB load from the increase in D5W and the TPN that we started yesterday. Bec of that, and bec our TPN is only avail in a fixed dose combination (10% AA in D15), we?re going to hold the TPN and continue with just D5W (see below). 3. TYE. Secondary to COVID-19, plus dehydration. Hydrating with D5W. Hb is down further today but urine sodium is still less than 20, renal ratio still very high. Unclear where all the fluid is going -- must be insensible losses from his high Ve, bec he has almost no edema. We?ll continue the D5W @ 200cc/hour. Follow renal indices and urine-Na. 4. Hypernatremia. Rx w D5W. 5. Hyperkalemia. Hope to improve renal fxn with fluids. The insulin infusion will also help. 6. Afib. Rate reasonably controlled on no medications. Restart anticoagulation tomorrow morning. 7. Earlier coagulopathy. Unexplained. Possibly 2? Coumadin + dietary deficiency. INR is normalized after another two doses of the 10mg Vit K. 8. ID. No abx indicated (yet). 9. Nutrition. Started TPN yesterday, but Ve is too high. We?ll hold the TPN and he?s gonna get D5W @ 200cc/hr. That?s a modest calorie load anyway. Prognosis is poor, given his age. He looks to me like he?s starting to whither. We?ll cut the TPN and pulse him w steroids. Other than that, not much else to do. I spoke with his by telephone mult times this morning, and then had her come in to see him. It?s my conviction that he?ll if we intubate him -- very possibly, even likely, during the procedure. But even if not, he won?t survive mech ventilation. So there?s no point in doing it. The best option is to continue with BiPAP. Spoke to his about this at length, and further that there?s no point in doing CPR. She spoke with her children and they agreed. His came in to see him, we talked further, and I wrote him for DNR/DNI status. Critical care time (including mult extended discussions with pharmacy, nutrition, and Dr. Wade re tPA and TPN): 2+ hrs. Physical Exam Vital Signs: Vital Signs: Last Vital Signs Temp 97.2 F 04/06/20 11:00 Pulse 93 04/06/20 11:00 Resp 22 H 04/06/20 11:00 BP 137/63 04/06/20 11:00 Pulse Ox 90 L 04/06/20 11:00 Body Mass Index 28.2 Objective Data Labs CBC & Chem 7: 04/06/20 05:30 04/06/20 05:30 Labs: Laboratory Results - last 24 hr 04/05/20 04/05/20 04/05/20 16:14 16:14 20:05 WBC RBC Hgb Hct MCV MCH MCHC RDW Plt Count MPV Immature Gran % (Auto) Neut % (Auto) Lymph % (Auto) [place] % (Auto) Eos % (Auto) Baso % (Auto) Lymph # (Auto) [place] # (Auto) Eos # (Auto) Baso # (Auto) Abs Immat Gran (auto) Absolute Neuts (auto) Absolute Nucleated RBC Nucleated RBC % (auto) Smear Tech's Comments PT INR D-Dimer VBG pH 7.37 VBG pCO2 46 VBG pO2 36 VBG HCO3 26 VBG O2 Saturation 63.5 VBG Base Excess -0.3 Sodium 150 H Potassium 5.3 H Chloride 113 H Carbon Dioxide 25 Anion Gap 17 BUN 113 H* Creatinine 1.56 H Estim Creat Clear Calc 38.5 Estimated GFR 43 POC Glucose 302 H Random Glucose 301 H Lactic Acid Lactic Acid Fup @ 2Hr Calcium 8.2 L Phosphorus Magnesium Ferritin C-Reactive Protein Procalcitonin Ur Random Sodium 04/05/20 04/05/20 04/06/20 21:54 23:56 02:16 WBC RBC Hgb Hct MCV MCH MCHC RDW Plt Count MPV Immature Gran % (Auto) Neut % (Auto) Lymph % (Auto) [place] % (Auto) Eos % (Auto) Baso % (Auto) Lymph # (Auto) [place] # (Auto) Eos # (Auto) Baso # (Auto) Abs Immat Gran (auto) Absolute Neuts (auto) Absolute Nucleated RBC Nucleated RBC % (auto) Smear Tech's Comments PT INR D-Dimer VBG pH VBG pCO2 VBG pO2 VBG HCO3 VBG O2 Saturation VBG Base Excess Sodium Potassium Chloride Carbon Dioxide Anion Gap BUN Creatinine Estim Creat Clear Calc Estimated GFR POC Glucose 273 H 214 H 203 H Random Glucose Lactic Acid Lactic Acid Fup @ 2Hr Calcium Phosphorus Magnesium Ferritin C-Reactive Protein Procalcitonin Ur Random Sodium 04/06/20 04/06/20 04/06/20 05:30 05:30 05:30 WBC 22.6 H RBC 4.84 Hgb 14.3 Hct 44.7 MCV 92.4 MCH 29.5 MCHC 32.0 RDW 15.3 Plt Count 115 L MPV 13.7 H Immature Gran % (Auto) 1.5 H Neut % (Auto) 91.6 H Lymph % (Auto) 2.6 L [place] % (Auto) 4.2 Eos % (Auto) 0.0 Baso % (Auto) 0.1 Lymph # (Auto) 0.6 L [place] # (Auto) 1.0 Eos # (Auto) 0.0 Baso # (Auto) 0.0 Abs Immat Gran (auto) 0.34 H Absolute Neuts (auto) 20.7 H Absolute Nucleated RBC 0.000 Nucleated RBC % (auto) 0.0 Smear Tech's Comments VERIFIED PT 12.5 INR 1.1 D-Dimer 69534 VBG pH VBG pCO2 VBG pO2 VBG HCO3 VBG O2 Saturation VBG Base Excess Sodium 145 Potassium 5.1 Chloride 111 H Carbon Dioxide 27 Anion Gap 12 BUN 111 H* Creatinine 1.38 Estim Creat Clear Calc 43.6 Estimated GFR 49 POC Glucose Random Glucose 303 H Lactic Acid Lactic Acid Fup @ 2Hr Calcium 7.6 L D Phosphorus 2.9 Magnesium 3.8 H* Ferritin 2983 H C-Reactive Protein 1.75 H Procalcitonin Ur Random Sodium 04/06/20 04/06/20 04/06/20 05:30 05:30 05:30 WBC RBC Hgb Hct MCV MCH MCHC RDW Plt Count MPV Immature Gran % (Auto) Neut % (Auto) Lymph % (Auto) [place] % (Auto) Eos % (Auto) Baso % (Auto) Lymph # (Auto) [place] # (Auto) Eos # (Auto) Baso # (Auto) Abs Immat Gran (auto) Absolute Neuts (auto) Absolute Nucleated RBC Nucleated RBC % (auto) Smear Tech's Comments PT INR D-Dimer VBG pH 7.33 VBG pCO2 53 VBG pO2 40 VBG HCO3 28 VBG O2 Saturation 69.9 VBG Base Excess 0.7 Sodium Potassium Chloride Carbon Dioxide Anion Gap BUN Creatinine Estim Creat Clear Calc Estimated GFR POC Glucose Random Glucose Lactic Acid 2.2 H* Lactic Acid Fup @ 2Hr Calcium Phosphorus Magnesium Ferritin C-Reactive Protein Procalcitonin 0.09 Ur Random Sodium 04/06/20 04/06/20 04/06/20 05:30 08:11 10:02 WBC RBC Hgb Hct MCV MCH MCHC RDW Plt Count MPV Immature Gran % (Auto) Neut % (Auto) Lymph % (Auto) [place] % (Auto) Eos % (Auto) Baso % (Auto) Lymph # (Auto) [place] # (Auto) Eos # (Auto) Baso # (Auto) Abs Immat Gran (auto) Absolute Neuts (auto) Absolute Nucleated RBC Nucleated RBC % (auto) Smear Tech's Comments PT INR D-Dimer VBG pH VBG pCO2 VBG pO2 VBG HCO3 VBG O2 Saturation VBG Base Excess Sodium Potassium Chloride Carbon Dioxide Anion Gap BUN Creatinine Estim Creat Clear Calc Estimated GFR POC Glucose 243 H Random Glucose Lactic Acid Lactic Acid Fup @ 2Hr 2.0 Calcium Phosphorus Magnesium Ferritin C-Reactive Protein Procalcitonin Ur Random Sodium < 20.0 Microbiology Microbiology Results: Microbiology 03/24/20 10:32 Blood - Venous Blood Culture - Final No growth after 5 days. 03/24/20 10:20 Blood - Venous Blood Culture - Final No growth after 5 days. Progress Note: A&P Time Spent With Patient Time: Total time spent is greater than 50% in coordination of care (as documented) at patient's floor/unit and/or counseling patient: Total time spent with greater than 50% in coordination of care (as documented) at patient's floor/unit and/or counseling patient:: 0 Critical Care Time Critical Care Time (minutes): 120
[2020-04-06] MEDS: methylPREDNISolone Sod Succ/PF 125 MG/2 ML VIAL 80 MG IVPUSH (11:44)
--- NOTE | 2020-04-06 11:47 | MHC.CM.PN ---
Per MD rounds, pt remain poor. BiPAP increased. May need intubation. Unable to tolerate removing mask at all, even for mouth care. Dr. Tarango to call today to update medical condition. Pt remains full code per his and family wishes. D/C plan depends on pt recovery. Prognosis very poor per Dr. Tarango
[2020-04-06] MEDS: Dextrose 5 % 1,000 ML 200 ML IVCONT ×3 (13:15→23:50)
[2020-04-06 13:22] LABS: Glucose, Whole Blood 181 mg/dL (60-115)
--- NOTE | 2020-04-06 13:35 | PM.PNNEP ---
Subjective Subjective Date of Service: 04/06/20 Interval history: seen and examined awake alert labored breathing Physical Exam Vital Signs: Vital Signs: Last Vital Signs Temp 97.2 F 04/06/20 12:00 Pulse 80 04/06/20 13:00 Resp 20 04/06/20 13:00 BP 154/64 H 04/06/20 13:00 Pulse Ox 99 04/06/20 13:00 Body Mass Index 28.2 Const: General: ill appearing HENMT: Head: Yes normocephalic and Yes atraumatic Neck: Neck: Yes supple Resp: Auscultation: diminished lung sounds Cardio: Heart sounds: S1 normal heart sound present and S2 normal heart sound present GI: Palpation (GI): Soft to palpation and nontender Extrem: General: No edema Objective Data Labs CBC & Chem 7: 04/06/20 05:30 04/06/20 05:30 Labs: Laboratory Results - last 24 hr 04/05/20 04/05/20 04/05/20 16:14 16:14 20:05 WBC RBC Hgb Hct MCV MCH MCHC RDW Plt Count MPV Immature Gran % (Auto) Neut % (Auto) Lymph % (Auto) [place] % (Auto) Eos % (Auto) Baso % (Auto) Lymph # (Auto) [place] # (Auto) Eos # (Auto) Baso # (Auto) Abs Immat Gran (auto) Absolute Neuts (auto) Absolute Nucleated RBC Nucleated RBC % (auto) Smear Tech's Comments PT INR D-Dimer VBG pH 7.37 VBG pCO2 46 VBG pO2 36 VBG HCO3 26 VBG O2 Saturation 63.5 VBG Base Excess -0.3 Sodium 150 H Potassium 5.3 H Chloride 113 H Carbon Dioxide 25 Anion Gap 17 BUN 113 H* Creatinine 1.56 H Estim Creat Clear Calc 38.5 Estimated GFR 43 POC Glucose 302 H Random Glucose 301 H Lactic Acid Lactic Acid Fup @ 2Hr Calcium 8.2 L Phosphorus Magnesium Ferritin C-Reactive Protein Procalcitonin Ur Random Sodium 04/05/20 04/05/20 04/06/20 21:54 23:56 02:16 WBC RBC Hgb Hct MCV MCH MCHC RDW Plt Count MPV Immature Gran % (Auto) Neut % (Auto) Lymph % (Auto) [place] % (Auto) Eos % (Auto) Baso % (Auto) Lymph # (Auto) [place] # (Auto) Eos # (Auto) Baso # (Auto) Abs Immat Gran (auto) Absolute Neuts (auto) Absolute Nucleated RBC Nucleated RBC % (auto) Smear Tech's Comments PT INR D-Dimer VBG pH VBG pCO2 VBG pO2 VBG HCO3 VBG O2 Saturation VBG Base Excess Sodium Potassium Chloride Carbon Dioxide Anion Gap BUN Creatinine Estim Creat Clear Calc Estimated GFR POC Glucose 273 H 214 H 203 H Random Glucose Lactic Acid Lactic Acid Fup @ 2Hr Calcium Phosphorus Magnesium Ferritin C-Reactive Protein Procalcitonin Ur Random Sodium 04/06/20 04/06/20 04/06/20 05:30 05:30 05:30 WBC 22.6 H RBC 4.84 Hgb 14.3 Hct 44.7 MCV 92.4 MCH 29.5 MCHC 32.0 RDW 15.3 Plt Count 115 L MPV 13.7 H Immature Gran % (Auto) 1.5 H Neut % (Auto) 91.6 H Lymph % (Auto) 2.6 L [place] % (Auto) 4.2 Eos % (Auto) 0.0 Baso % (Auto) 0.1 Lymph # (Auto) 0.6 L [place] # (Auto) 1.0 Eos # (Auto) 0.0 Baso # (Auto) 0.0 Abs Immat Gran (auto) 0.34 H Absolute Neuts (auto) 20.7 H Absolute Nucleated RBC 0.000 Nucleated RBC % (auto) 0.0 Smear Tech's Comments VERIFIED PT 12.5 INR 1.1 D-Dimer 74976 VBG pH VBG pCO2 VBG pO2 VBG HCO3 VBG O2 Saturation VBG Base Excess Sodium 145 Potassium 5.1 Chloride 111 H Carbon Dioxide 27 Anion Gap 12 BUN 111 H* Creatinine 1.38 Estim Creat Clear Calc 43.6 Estimated GFR 49 POC Glucose Random Glucose 303 H Lactic Acid Lactic Acid Fup @ 2Hr Calcium 7.6 L D Phosphorus 2.9 Magnesium 3.8 H* Ferritin 2983 H C-Reactive Protein 1.75 H Procalcitonin Ur Random Sodium 04/06/20 04/06/20 04/06/20 05:30 05:30 05:30 WBC RBC Hgb Hct MCV MCH MCHC RDW Plt Count MPV Immature Gran % (Auto) Neut % (Auto) Lymph % (Auto) [place] % (Auto) Eos % (Auto) Baso % (Auto) Lymph # (Auto) [place] # (Auto) Eos # (Auto) Baso # (Auto) Abs Immat Gran (auto) Absolute Neuts (auto) Absolute Nucleated RBC Nucleated RBC % (auto) Smear Tech's Comments PT INR D-Dimer VBG pH 7.33 VBG pCO2 53 VBG pO2 40 VBG HCO3 28 VBG O2 Saturation 69.9 VBG Base Excess 0.7 Sodium Potassium Chloride Carbon Dioxide Anion Gap BUN Creatinine Estim Creat Clear Calc Estimated GFR POC Glucose Random Glucose Lactic Acid 2.2 H* Lactic Acid Fup @ 2Hr Calcium Phosphorus Magnesium Ferritin C-Reactive Protein Procalcitonin 0.09 Ur Random Sodium 04/06/20 04/06/20 04/06/20 05:30 08:11 10:02 WBC RBC Hgb Hct MCV MCH MCHC RDW Plt Count MPV Immature Gran % (Auto) Neut % (Auto) Lymph % (Auto) [place] % (Auto) Eos % (Auto) Baso % (Auto) Lymph # (Auto) [place] # (Auto) Eos # (Auto) Baso # (Auto) Abs Immat Gran (auto) Absolute Neuts (auto) Absolute Nucleated RBC Nucleated RBC % (auto) Smear Tech's Comments PT INR D-Dimer VBG pH VBG pCO2 VBG pO2 VBG HCO3 VBG O2 Saturation VBG Base Excess Sodium Potassium Chloride Carbon Dioxide Anion Gap BUN Creatinine Estim Creat Clear Calc Estimated GFR POC Glucose 243 H Random Glucose Lactic Acid Lactic Acid Fup @ 2Hr 2.0 Calcium Phosphorus Magnesium Ferritin C-Reactive Protein Procalcitonin Ur Random Sodium < 20.0 04/06/20 13:18 WBC RBC Hgb Hct MCV MCH MCHC RDW Plt Count MPV Immature Gran % (Auto) Neut % (Auto) Lymph % (Auto) [place] % (Auto) Eos % (Auto) Baso % (Auto) Lymph # (Auto) [place] # (Auto) Eos # (Auto) Baso # (Auto) Abs Immat Gran (auto) Absolute Neuts (auto) Absolute Nucleated RBC Nucleated RBC % (auto) Smear Tech's Comments PT INR D-Dimer VBG pH VBG pCO2 VBG pO2 VBG HCO3 VBG O2 Saturation VBG Base Excess Sodium Potassium Chloride Carbon Dioxide Anion Gap BUN Creatinine Estim Creat Clear Calc Estimated GFR POC Glucose 181 H Random Glucose Lactic Acid Lactic Acid Fup @ 2Hr Calcium Phosphorus Magnesium Ferritin C-Reactive Protein Procalcitonin Ur Random Sodium Microbiology Microbiology Results: Microbiology 03/24/20 10:32 Blood - Venous Blood Culture - Final No growth after 5 days. 03/24/20 10:20 Blood - Venous Blood Culture - Final No growth after 5 days. Assessment & Plan Assessment and plan (1) TYE (acute kidney injury): Status: Acute (2) Hyperkalemia: Status: Acute (3) COVID-19: Status: Acute Assessment and Plan: BUN and creatinine better mild free water deficit corrected TYE in the setting of SARS COV 2 infection TYE due to compromised kidney perfusion BUN >> creatinine suggests pre renal state also on methyl prednisolone urine sodium < 20 consistent with pre renal state cannot exclude COVID related TYE elevated serum potassium due to impaired distal flow normal baseline kidney function REC change all drips to hyptonic fluid IVF (hypotonic) follow kidney function and electrolytes Time Spent With Patient Time: Total time spent is greater than 50% in coordination of care (as documented) at patient's floor/unit and/or counseling patient:
--- NOTE | 2020-04-06 14:47 | PC.NURSE ---
PTS SPOKE WITH MD AND CODE STATUS CHANGED TO DNR/DNI. ALLOWED TO VISIT, THIS RN ASSISTED WITH FACETIMING FAMILY. PTS TOOK PATIENTS BELONGINGS HOME AND RETRIEVED WALLET FROM [employer].
[2020-04-06 16:36] LABS: Glucose, Whole Blood 196 mg/dL (60-115)
[2020-04-06 18:15] LABS: Base Excess VBG -4.1 mmol/L; Blood Gas Serial # 5396; HCO3 VBG 23 mmol/L; Oxygen Saturation VBG 66.4 %; PCO2 VBG 47 mmhg; PO2 VBG 39 mmhg
[2020-04-06] MEDS: methylPREDNISolone Sod Succ/PF 125 MG/2 ML VIAL 250 MG IV ×2 (18:18→23:57)
[2020-04-06 18:31] LABS: PTT Heparin Drip 24.9 SEC (53-77.9)
[2020-04-06 19:52] LABS: Glucose, Whole Blood 187 mg/dL (60-115)
[2020-04-07] VITALS (31 sets, daily range): BP systolic 98–144; BP diastolic 38–77; PULSE 60–96; RESP 11–35; TEMP 35.5–36.7; O2SAT 78–99; BMI 28.2
[2020-04-07 00:07] LABS: Glucose, Whole Blood 176 mg/dL (60-115)
[2020-04-07] MEDS: Heparin Sodium,Porcine/1/2NS 25,000 UNIT/250 ML IV.SOLN 11.79 UNIT IVCONT (04:06)
[2020-04-07 05:26] LABS: Glucose, Whole Blood 160 mg/dL (60-115)
[2020-04-07 05:47] LABS: Basophils Percent Auto 0.1 % (0-2); Imm Gran Pct Auto 1.3 % (0.0-0.4); Lymphocytes Absolute Auto 0.6 X10*3/uL (1.2-4.9); Lymphocytes Percent Auto 2.5 % (20-40); MANUAL DIFF FLAG SCAN; Mean Corpuscular Hemoglobin 29.8 pg (27.0-33.0); SCAN SMEAR FLAG 1
[2020-04-07 05:49] LABS: Hematocrit 41.2 % (42-52); Hemoglobin 13.5 g/dl (14.0-18.0); Imm Gran Abs Auto 0.29 X10*3/uL (0.00-0.03); Mean Corpuscular HGB Conc 32.8 g/dl (31.0-36.0); Mean Corpuscular Volume 90.9 fL (80-98); Monocytes Absolute Auto 0.9 X10*3/uL (0.1-1.2); Monocytes Percent Auto 4.2 % (2-11); NRBC Pct Auto 0.1 /100WBC (0.0-0.2); Neutrophils Absolute Auto 20.5 X10*3/uL (2.0-8.3); Neutrophils Percent Auto 91.9 % (45-73); Platelet Count 104 X10*3/uL (160-400); Red Blood Count 4.53 X10*6/uL (4.60-5.80); Red Cell Distribution Width 15.1 % (11.0-16.0); White Blood Count 22.3 X10*3/uL (4.8-10.8)
[2020-04-07] MEDS: Insulin Regular/NS 100 UNIT/100 ML PLAST..BAG IVCONT (05:51)
[2020-04-07 05:54] LABS: PLT ABN DIST 1
[2020-04-07 06:02] LABS: INTERNATIONAL NORM RATIO 1.2 (0.9-1.1); Prothrombin Time 14.3 SEC (10.8-13.0)
[2020-04-07] MEDS: Dextrose 5 % 1,000 ML 200 ML IVCONT ×2 (06:06→11:02)
[2020-04-07 06:10] LABS: SLIDE REVIEW VERIFIED
[2020-04-07 06:15] LABS: Alanine Aminotransferase 23 U/L (0-40); Albumin Level 2.5 g/dL (3.5-5.0); Alkaline Phosphatase 48 U/L (39-117); Anion Gap 13 (12-20); Aspartate Amino Transferase 27 U/L (5-37); Bilirubin Total 1.7 mg/dL (0.0-1.0); Blood Urea Nitrogen 82 mg/dL (9-16); C Reactive Protein 0.63 mg/dL (< or = 0.50); Carbon Dioxide 24 mmol/L (22-29); Chloride 104 mmol/L (96-108); Estimated Glomerular Filt Rate 59; Glucose Random 163 mg/dL (60-115); Magnesium 3.1 mg/dL (1.6-2.6); Phosphorus 3.7 mg/dL (2.7-4.5); Potassium 5.5 mmol/l (3.3-5.1); Sodium 135 mmol/L (135-145); Total Protein 4.9 g/dL (6.5-8.0)
[2020-04-07 06:19] LABS: Lactic Acid 1.8 mmol/L (0.5-2.0)
[2020-04-07 06:37] LABS: Sodium Urine Random < 20.0 mmol/L
[2020-04-07 06:37] LABS: D Dimer 6995 NG/ML
[2020-04-07 06:45] LABS: Base Excess VBG -1.2 mmol/L; HCO3 VBG 25 mmol/L; Oxygen Saturation VBG 74.1 %; PCO2 VBG 47 mmhg; PO2 VBG 40 mmhg; pH VBG 7.34 (7.32-7.43)
[2020-04-07 06:49] LABS: Procalcitonin 0.07 ng/mL
[2020-04-07] MEDS: methylPREDNISolone Sod Succ/PF 125 MG/2 ML VIAL 250 MG IV ×4 (07:19→23:33)
[2020-04-07] MEDS: Famotidine/PF 20 MG/2 ML VIAL IVPUSH ×2 (07:47→21:07)
[2020-04-07 08:14] LABS: Ferritin 2533 ng/mL (20-250)
[2020-04-07 08:17] LABS: Glucose, Whole Blood 197 mg/dL (60-115)
[2020-04-07 09:53] LABS: Glucose, Whole Blood 200 mg/dL (60-115)
[2020-04-07] MEDS: fentaNYL citrate/NS 1,000 MCG/100 ML PLAST..BAG 2.5 MCG IVCONT (11:10)
[2020-04-07 11:16] LABS: PTT Heparin Drip > 200.0 SEC (53-77.9)
[2020-04-07 11:25] LABS: Glucose, Whole Blood 181 mg/dL (60-115)
[2020-04-07 12:40] LABS: PTT Heparin Drip 105.7 SEC (53-77.9)
[2020-04-07] MEDS: fentaNYL citrate/PF 100 MCG/2 ML VIAL 50 MCG IVPUSH (13:18)
--- NOTE | 2020-04-07 13:24 | PC.NURSE ---
Upon shift assessment this am patient remains on BiPAP 16/10 100% fi02 with o2 sats trending in the low to mid 90s. Patient drowsy and vague but easily arousable to verbal stimuli. Remains on fentanyl, herparin and insulin drip. At beginning of shift patient noted to have bruised/scabbed over area on the bridge of his nose. MD, RT, and nursing supervisor drawing made aware. Unable to obtain picture at this time due to severe hypoxemia. RT and MD at bedside to evaluate. RT replaced BiPAP mask with a large from a medium. Duoderm applied to bridge of nose. Patient tolerated poorly with o2 sats dropping into the 50s, MD at bedside, prn fentanyl IVP administered. BiPAP 16/10 and fio2 reduced to 90% by , 02 sats trending in the mid 90s. Patient remains NPO. IVF held this afternoon d/t peripheral edema per . BS hypoactive. No MD JOSH aware. Hoskins in place, concentrated urine output trending around 50 cc/hr. Patient's Ximena updated by this RN via telephone.
[2020-04-07 14:17] LABS: PTT Heparin Drip 43.6 SEC (53-77.9)
--- NOTE | 2020-04-07 15:14 | P.PNCC_ITS ---
Subjective Subjective Date of Service: 04/07/20 Interval History: Mr. sU was admitted to ICU on Mar 30 for acute respiratory failure secondary to COVID pneumonia. 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 His was diagnosed with COVID-19 at the beginning of March. He began having symptoms on March 18; his 's symptoms have since resolved. [place] [facility] [place] with progressive hypoxemia secondary to COVID-19. Presenting sat was 80% on room air. Lab work revealed elevated ferritin of 1492, LDH of 426 and CRP of 8.67. Chest x-ray was unremarkable. He required oxygen by Venti mask to maintain oxygen saturations above 90. He was admitted to medicine and treated with remdesivir and dexamethasone. Escalating FiO2 requirements required noninvasive positive pressure ventilation, for which he was transferred to ICU on Mar 30. He was given DVT prophylaxis level-Lovenox. Hospital course further complicated by coagulopathy and acute kidney injury. In the ICU, the patient?s mental status has remained good for the most part. He?s required NIV by mask almost continuously. A noncontrast chest CT on 04/03 showed diffuse bilateral infiltrates throughout almost the entire lung, consistent with coronavirus disease, although the infiltrates were not as dense as some that we have seen (which probably accounts for why he has not yet required mechanical ventilation). Duplex scan of the lower extremities that day showed clot throughout the right lower extremity and in the left calf. So we upped his anticoagulation to Lovenox 1 mg/kg bid, bumped his steroids to Solumedrol 80 mg bid, and added Pepcid and thiamine. He was also started him on a D5W infusion because of hypernatremia and because of a markedly elevated renal ratio, with a low urine sodium. On 04/05, his minute volume on CPAP was up to 27Liters, and central venous pCO2 was up to 55mm. So we changed him over to BiPAP, held his Lovenox, and gave him ? dose tPA. We also started him on an insulin drip. As of yesterday, there was no clear improvement in his oxygenation or pCO2. With the high CHB load from the D5W he was getting at 200cc/hr (for his hypernatremia and high renal ratio), his Ve was up to high 20s. We started him on pulse steroids, 1G/day x 3 days, and a fentanyl drip and his came in to spend sme time with him. Overnite, his FiO2 was increased to 100%. See Vital Signs below. This morning, he?s still on BiPAP 16/10/100%, w Sat 91-95%. CVBG this morning showed 7.34/47/-1 (down from PvCO2 53 yest morning). RR running mid 20s, Vt 700s, Ve 25L. He?s easily arousable and gives me a thrumbs up. He continues afebrile. Heart rhythm is atrial fibrillation but reasonably controlled. He has a stage 2 press ulcer on his nose from the BiPAP mask. During the process of changing his mask, his Sat dropped to the 50s and he developed resp distress. We gave him a bolus of fentanyl 50ug and his RR dropped to mid-teens, Vt luis e to 920cc, and Sat shot up to 97%. Looks even more comfortable. Very mild neck access muscle use today, less than yesterday. No pressors. No JVD. Normal expiratory phase. Abdomen benign. 1+ leg edema today for the first time. I&Os: Over the day yest and last night, he got D5W at 200cc/hr. U/O averaging about 100cc/hr. LABORATORY DATA: As below. Notably, hemoglobin is down further (presumably secondary to hemodilution), PT is normalized after the vitamin K, sodium is finally down to 135, BUN and creatinine are also further down to 82/1.1, potassium is 5.5 though, lactic acid finally normalized, phosphorus still low. Urine sodium is still less than 20. D-dimer down to 6900. Ferritin down, CRP is down, PCT is down. ECHOCARDIOGRAM 04/04 notable for: 1. Normal LV systolic function with mild LVH. 2. Normal right ventricular cavity size, w normal right ventricular fxn. 3. Moderately enlarged left atrium 4. Mild aortic and mitral regurgitation 5. Normal RV systolic pressure 6. Severely dilated ascending aorta at 5.1 cm IMPRESSION: 1. Bilateral COVID-19 ARDS. Seems to be improved today, with lower Ve, yet lower pCO2. Unlclear if this is from the tPA or the pulse sterois. Continue 1G daily x 2 more doses. Continuing on heparin gtt. 2. Acute hypoxemic and hypercarbic respiratory failure. Secondary to above, and possible pulmonary VTE (suggested by the severe hypoxemia w high DDimer ). Holding his own. With the drop in his serum sodium and renal indices, we?ll also be able to stop his D5W infusion, and decrease his obligate CHB load and therefore WOB. 3. TYE. Secondary to COVID-19, plus dehydration. Finally improving after vigorous hydration with D5W. Also possible that some of the improvement in his renal indices might be 2? to the tPA. Given the improvements above, and development of edema, we?ll d/c the D5W infusion. Follow renal indices and urine-Na daily. 4. Hypernatremia. Finally resolved. 5. Hyperkalemia. Hope to improve with improvement in renal fxn. The insulin infusion will also help. Recheck 6pm today. 6. Afib. Rate reasonably controlled on no medications. Restarted anticoagulation this morning with heparin gtt. 7. Earlier coagulopathy. Unexplained. Possibly 2? Coumadin + dietary deficiency. INR is normalized after another two doses of the 10mg Vit K. 8. ID. No abx indicated (yet). 9. Nutrition. If Ve is still down tomorrow, I?ll start him on TPN. Prognosis is poor, given his age, but there?s been some small but definite improvements overnite. Called his and gave her an update. We?ll continue with current plan. DNR/DNI status. No intubation. He?ll either make it on BiPAP or he won?t. Critical care time: 60 min. Physical Exam Vital Signs: Vital Signs: Last Vital Signs Temp 96.1 F L 04/07/20 14:58 Pulse 76 04/07/20 14:58 Resp 15 04/07/20 14:58 BP 129/60 04/07/20 14:58 Pulse Ox 94 04/07/20 14:58 Body Mass Index 28.2 Objective Data Labs CBC & Chem 7: 04/07/20 05:15 04/07/20 05:15 Labs: Laboratory Results - last 24 hr 04/06/20 04/06/20 04/06/20 16:28 18:00 18:01 WBC RBC Hgb Hct MCV MCH MCHC RDW Plt Count Immature Gran % (Auto) Neut % (Auto) Lymph % (Auto) [place] % (Auto) Eos % (Auto) Baso % (Auto) Lymph # (Auto) [place] # (Auto) Eos # (Auto) Baso # (Auto) Abs Immat Gran (auto) Absolute Neuts (auto) Absolute Nucleated RBC Nucleated RBC % (auto) Smear Tech's Comments PT INR PTT (Heparin Protocol) 24.9 L D-Dimer VBG pH 7.30 L VBG pCO2 47 VBG pO2 39 VBG HCO3 23 VBG O2 Saturation 66.4 VBG Base Excess -4.1 Sodium Potassium Chloride Carbon Dioxide Anion Gap BUN Creatinine Estim Creat Clear Calc Estimated GFR POC Glucose 196 H Random Glucose Lactic Acid Calcium Phosphorus Magnesium Ferritin Total Bilirubin AST ALT Alkaline Phosphatase C-Reactive Protein Total Protein Albumin Procalcitonin Ur Random Sodium 04/06/20 04/07/20 04/07/20 19:42 00:00 05:15 WBC 22.3 H RBC 4.53 L Hgb 13.5 L Hct 41.2 L MCV 90.9 MCH 29.8 MCHC 32.8 RDW 15.1 Plt Count 104 L Immature Gran % (Auto) 1.3 H Neut % (Auto) 91.9 H Lymph % (Auto) 2.5 L [place] % (Auto) 4.2 Eos % (Auto) 0.0 Baso % (Auto) 0.1 Lymph # (Auto) 0.6 L [place] # (Auto) 0.9 Eos # (Auto) 0.0 Baso # (Auto) 0.0 Abs Immat Gran (auto) 0.29 H Absolute Neuts (auto) 20.5 H Absolute Nucleated RBC 0.020 H Nucleated RBC % (auto) 0.1 Smear Tech's Comments VERIFIED PT INR PTT (Heparin Protocol) D-Dimer VBG pH VBG pCO2 VBG pO2 VBG HCO3 VBG O2 Saturation VBG Base Excess Sodium Potassium Chloride Carbon Dioxide Anion Gap BUN Creatinine Estim Creat Clear Calc Estimated GFR POC Glucose 187 H 176 H Random Glucose Lactic Acid Calcium Phosphorus Magnesium Ferritin Total Bilirubin AST ALT Alkaline Phosphatase C-Reactive Protein Total Protein Albumin Procalcitonin Ur Random Sodium 04/07/20 04/07/20 04/07/20 05:15 05:15 05:15 WBC RBC Hgb Hct MCV MCH MCHC RDW Plt Count Immature Gran % (Auto) Neut % (Auto) Lymph % (Auto) [place] % (Auto) Eos % (Auto) Baso % (Auto) Lymph # (Auto) [place] # (Auto) Eos # (Auto) Baso # (Auto) Abs Immat Gran (auto) Absolute Neuts (auto) Absolute Nucleated RBC Nucleated RBC % (auto) Smear Tech's Comments PT 14.3 H INR 1.2 H PTT (Heparin Protocol) D-Dimer 6995 VBG pH VBG pCO2 VBG pO2 VBG HCO3 VBG O2 Saturation VBG Base Excess Sodium 135 Potassium 5.5 H Chloride 104 Carbon Dioxide 24 Anion Gap 13 BUN 82 H* D Creatinine 1.18 Estim Creat Clear Calc 51.0 Estimated GFR 59 POC Glucose Random Glucose 163 H D Lactic Acid 1.8 Calcium 7.0 L D Phosphorus 3.7 Magnesium 3.1 H Ferritin 2533 H Total Bilirubin 1.7 H AST 27 ALT 23 Alkaline Phosphatase 48 C-Reactive Protein 0.63 H Total Protein 4.9 L Albumin 2.5 L Procalcitonin Ur Random Sodium 04/07/20 04/07/20 04/07/20 05:15 05:15 05:16 WBC RBC Hgb Hct MCV MCH MCHC RDW Plt Count Immature Gran % (Auto) Neut % (Auto) Lymph % (Auto) [place] % (Auto) Eos % (Auto) Baso % (Auto) Lymph # (Auto) [place] # (Auto) Eos # (Auto) Baso # (Auto) Abs Immat Gran (auto) Absolute Neuts (auto) Absolute Nucleated RBC Nucleated RBC % (auto) Smear Tech's Comments PT INR PTT (Heparin Protocol) D-Dimer VBG pH 7.34 VBG pCO2 47 VBG pO2 40 VBG HCO3 25 VBG O2 Saturation 74.1 VBG Base Excess -1.2 Sodium Potassium Chloride Carbon Dioxide Anion Gap BUN Creatinine Estim Creat Clear Calc Estimated GFR POC Glucose 160 H Random Glucose Lactic Acid Calcium Phosphorus Magnesium Ferritin Total Bilirubin AST ALT Alkaline Phosphatase C-Reactive Protein Total Protein Albumin Procalcitonin 0.07 Ur Random Sodium 04/07/20 04/07/20 04/07/20 05:30 07:49 09:38 WBC RBC Hgb Hct MCV MCH MCHC RDW Plt Count Immature Gran % (Auto) Neut % (Auto) Lymph % (Auto) [place] % (Auto) Eos % (Auto) Baso % (Auto) Lymph # (Auto) [place] # (Auto) Eos # (Auto) Baso # (Auto) Abs Immat Gran (auto) Absolute Neuts (auto) Absolute Nucleated RBC Nucleated RBC % (auto) Smear Tech's Comments PT INR PTT (Heparin Protocol) D-Dimer VBG pH VBG pCO2 VBG pO2 VBG HCO3 VBG O2 Saturation VBG Base Excess Sodium Potassium Chloride Carbon Dioxide Anion Gap BUN Creatinine Estim Creat Clear Calc Estimated GFR POC Glucose 197 H 200 H Random Glucose Lactic Acid Calcium Phosphorus Magnesium Ferritin Total Bilirubin AST ALT Alkaline Phosphatase C-Reactive Protein Total Protein Albumin Procalcitonin Ur Random Sodium < 20.0 04/07/20 04/07/20 04/07/20 10:36 11:13 12:26 WBC RBC Hgb Hct MCV MCH MCHC RDW Plt Count Immature Gran % (Auto) Neut % (Auto) Lymph % (Auto) [place] % (Auto) Eos % (Auto) Baso % (Auto) Lymph # (Auto) [place] # (Auto) Eos # (Auto) Baso # (Auto) Abs Immat Gran (auto) Absolute Neuts (auto) Absolute Nucleated RBC Nucleated RBC % (auto) Smear Tech's Comments PT INR PTT (Heparin Protocol) > 200.0 H* D 105.7 H D D-Dimer VBG pH VBG pCO2 VBG pO2 VBG HCO3 VBG O2 Saturation VBG Base Excess Sodium Potassium Chloride Carbon Dioxide Anion Gap BUN Creatinine Estim Creat Clear Calc Estimated GFR POC Glucose 181 H Random Glucose Lactic Acid Calcium Phosphorus Magnesium Ferritin Total Bilirubin AST ALT Alkaline Phosphatase C-Reactive Protein Total Protein Albumin Procalcitonin Ur Random Sodium 04/07/20 13:45 WBC RBC Hgb Hct MCV MCH MCHC RDW Plt Count Immature Gran % (Auto) Neut % (Auto) Lymph % (Auto) [place] % (Auto) Eos % (Auto) Baso % (Auto) Lymph # (Auto) [place] # (Auto) Eos # (Auto) Baso # (Auto) Abs Immat Gran (auto) Absolute Neuts (auto) Absolute Nucleated RBC Nucleated RBC % (auto) Smear Tech's Comments PT INR PTT (Heparin Protocol) 43.6 L D D-Dimer VBG pH VBG pCO2 VBG pO2 VBG HCO3 VBG O2 Saturation VBG Base Excess Sodium Potassium Chloride Carbon Dioxide Anion Gap BUN Creatinine Estim Creat Clear Calc Estimated GFR POC Glucose Random Glucose Lactic Acid Calcium Phosphorus Magnesium Ferritin Total Bilirubin AST ALT Alkaline Phosphatase C-Reactive Protein Total Protein Albumin Procalcitonin Ur Random Sodium Microbiology Microbiology Results: Microbiology 03/24/20 10:32 Blood - Venous Blood Culture - Final No growth after 5 days. 03/24/20 10:20 Blood - Venous Blood Culture - Final No growth after 5 days. Progress Note: A&P Time Spent With Patient Time: Total time spent is greater than 50% in coordination of care (as documented) at patient's floor/unit and/or counseling patient: Total time spent with greater than 50% in coordination of care (as documented) at patient's floor/unit and/or counseling patient:: 0 Critical Care Time Critical Care Time (minutes): 60
[2020-04-07 15:20] LABS: Glucose, Whole Blood 163 mg/dL (60-115)
--- NOTE | 2020-04-07 15:36 | PM.PNNEP ---
Subjective Subjective Date of Service: 04/07/20 Interval history: events noted. case d/w Dr chris indetail sna down to 135 after IV D5 W as noted Physical Exam Vital Signs: Vital Signs: Last Vital Signs Temp 96.1 F L 04/07/20 14:58 Pulse 76 04/07/20 14:58 Resp 19 04/07/20 15:12 BP 129/60 04/07/20 14:58 Pulse Ox 94 04/07/20 14:58 Body Mass Index 28.2 Const: Other: General - no significant distress Cardiovascular - regular rate and rhythm, S1-S2 Lungs - dim sounds, distress with any exertion, Abdomen - soft, nontender, no rebound or guarding Extremities - no edema bilaterally Neuro - awake and alert, no focal deficits General: cooperative, no acute distress, alert, awake and ill appearing Nutritional Appearance: well nourished Orientation/consciousness: patient oriented x3 HENMT: Head: Yes normal to inspection, Yes normocephalic and Yes atraumatic Eyes: General: appearance normal, both eyes and all related structures Sclerae: sclerae normal EOM: EOMs intact bilaterally Neck: Neck: Yes no lymphadenopathy, Yes trachea midline and Yes supple Chest: Chest palpation & inspection: normal inspection of the chest Resp: Other: labored breathing with conversation but able to speak in full sentences Effort & Inspection: normal respiratory effort, abnormal respiratory pattern and no respiratory distress Auscultation: clear to auscultation bilaterally, crackles bilateral and diffuse and diminished lung sounds Cardio: Other: General - no significant distress Cardiovascular - regular rate and rhythm, S1-S2 Lungs - dim sounds, distress with any exertion, Abdomen - soft, nontender, no rebound or guarding Extremities - no edema bilaterally Neuro - awake and alert, no focal deficits Rate: regular rate and tachycardic Rhythm: regular rhythm Heart sounds: S1 normal heart sound present, S2 normal heart sound present, no gallops, no murmurs and no rubs GI: Palpation (GI): Soft to palpation, nontender, no guarding and Other GI palpation findings present ( Nontender) Auscultation: normal bowel sounds Skin: General skin exam: no rashes or lesions noted Neuro: General: patient oriented x3 Cranial nerves: Yes CN's II-XII intact bilaterally and Yes Bilaterally intact EOM present Extrem: General: Yes normal to inspection, Yes no pedal edema, No clubbing, No cyanosis, No edema and No pedal edema Objective Data Labs CBC & Chem 7: 04/07/20 05:15 04/07/20 05:15 Labs: Laboratory Results - last 24 hr 04/06/20 04/06/20 04/06/20 16:28 18:00 18:01 WBC RBC Hgb Hct MCV MCH MCHC RDW Plt Count Immature Gran % (Auto) Neut % (Auto) Lymph % (Auto) [place] % (Auto) Eos % (Auto) Baso % (Auto) Lymph # (Auto) [place] # (Auto) Eos # (Auto) Baso # (Auto) Abs Immat Gran (auto) Absolute Neuts (auto) Absolute Nucleated RBC Nucleated RBC % (auto) Smear Tech's Comments PT INR PTT (Heparin Protocol) 24.9 L D-Dimer VBG pH 7.30 L VBG pCO2 47 VBG pO2 39 VBG HCO3 23 VBG O2 Saturation 66.4 VBG Base Excess -4.1 Sodium Potassium Chloride Carbon Dioxide Anion Gap BUN Creatinine Estim Creat Clear Calc Estimated GFR POC Glucose 196 H Random Glucose Lactic Acid Calcium Phosphorus Magnesium Ferritin Total Bilirubin AST ALT Alkaline Phosphatase C-Reactive Protein Total Protein Albumin Procalcitonin Ur Random Sodium 04/06/20 04/07/20 04/07/20 19:42 00:00 05:15 WBC 22.3 H RBC 4.53 L Hgb 13.5 L Hct 41.2 L MCV 90.9 MCH 29.8 MCHC 32.8 RDW 15.1 Plt Count 104 L Immature Gran % (Auto) 1.3 H Neut % (Auto) 91.9 H Lymph % (Auto) 2.5 L [place] % (Auto) 4.2 Eos % (Auto) 0.0 Baso % (Auto) 0.1 Lymph # (Auto) 0.6 L [place] # (Auto) 0.9 Eos # (Auto) 0.0 Baso # (Auto) 0.0 Abs Immat Gran (auto) 0.29 H Absolute Neuts (auto) 20.5 H Absolute Nucleated RBC 0.020 H Nucleated RBC % (auto) 0.1 Smear Tech's Comments VERIFIED PT INR PTT (Heparin Protocol) D-Dimer VBG pH VBG pCO2 VBG pO2 VBG HCO3 VBG O2 Saturation VBG Base Excess Sodium Potassium Chloride Carbon Dioxide Anion Gap BUN Creatinine Estim Creat Clear Calc Estimated GFR POC Glucose 187 H 176 H Random Glucose Lactic Acid Calcium Phosphorus Magnesium Ferritin Total Bilirubin AST ALT Alkaline Phosphatase C-Reactive Protein Total Protein Albumin Procalcitonin Ur Random Sodium 04/07/20 04/07/20 04/07/20 05:15 05:15 05:15 WBC RBC Hgb Hct MCV MCH MCHC RDW Plt Count Immature Gran % (Auto) Neut % (Auto) Lymph % (Auto) [place] % (Auto) Eos % (Auto) Baso % (Auto) Lymph # (Auto) [place] # (Auto) Eos # (Auto) Baso # (Auto) Abs Immat Gran (auto) Absolute Neuts (auto) Absolute Nucleated RBC Nucleated RBC % (auto) Smear Tech's Comments PT 14.3 H INR 1.2 H PTT (Heparin Protocol) D-Dimer 6995 VBG pH VBG pCO2 VBG pO2 VBG HCO3 VBG O2 Saturation VBG Base Excess Sodium 135 Potassium 5.5 H Chloride 104 Carbon Dioxide 24 Anion Gap 13 BUN 82 H* D Creatinine 1.18 Estim Creat Clear Calc 51.0 Estimated GFR 59 POC Glucose Random Glucose 163 H D Lactic Acid 1.8 Calcium 7.0 L D Phosphorus 3.7 Magnesium 3.1 H Ferritin 2533 H Total Bilirubin 1.7 H AST 27 ALT 23 Alkaline Phosphatase 48 C-Reactive Protein 0.63 H Total Protein 4.9 L Albumin 2.5 L Procalcitonin Ur Random Sodium 04/07/20 04/07/20 04/07/20 05:15 05:15 05:16 WBC RBC Hgb Hct MCV MCH MCHC RDW Plt Count Immature Gran % (Auto) Neut % (Auto) Lymph % (Auto) [place] % (Auto) Eos % (Auto) Baso % (Auto) Lymph # (Auto) [place] # (Auto) Eos # (Auto) Baso # (Auto) Abs Immat Gran (auto) Absolute Neuts (auto) Absolute Nucleated RBC Nucleated RBC % (auto) Smear Tech's Comments PT INR PTT (Heparin Protocol) D-Dimer VBG pH 7.34 VBG pCO2 47 VBG pO2 40 VBG HCO3 25 VBG O2 Saturation 74.1 VBG Base Excess -1.2 Sodium Potassium Chloride Carbon Dioxide Anion Gap BUN Creatinine Estim Creat Clear Calc Estimated GFR POC Glucose 160 H Random Glucose Lactic Acid Calcium Phosphorus Magnesium Ferritin Total Bilirubin AST ALT Alkaline Phosphatase C-Reactive Protein Total Protein Albumin Procalcitonin 0.07 Ur Random Sodium 04/07/20 04/07/20 04/07/20 05:30 07:49 09:38 WBC RBC Hgb Hct MCV MCH MCHC RDW Plt Count Immature Gran % (Auto) Neut % (Auto) Lymph % (Auto) [place] % (Auto) Eos % (Auto) Baso % (Auto) Lymph # (Auto) [place] # (Auto) Eos # (Auto) Baso # (Auto) Abs Immat Gran (auto) Absolute Neuts (auto) Absolute Nucleated RBC Nucleated RBC % (auto) Smear Tech's Comments PT INR PTT (Heparin Protocol) D-Dimer VBG pH VBG pCO2 VBG pO2 VBG HCO3 VBG O2 Saturation VBG Base Excess Sodium Potassium Chloride Carbon Dioxide Anion Gap BUN Creatinine Estim Creat Clear Calc Estimated GFR POC Glucose 197 H 200 H Random Glucose Lactic Acid Calcium Phosphorus Magnesium Ferritin Total Bilirubin AST ALT Alkaline Phosphatase C-Reactive Protein Total Protein Albumin Procalcitonin Ur Random Sodium < 20.0 04/07/20 04/07/20 04/07/20 10:36 11:13 12:26 WBC RBC Hgb Hct MCV MCH MCHC RDW Plt Count Immature Gran % (Auto) Neut % (Auto) Lymph % (Auto) [place] % (Auto) Eos % (Auto) Baso % (Auto) Lymph # (Auto) [place] # (Auto) Eos # (Auto) Baso # (Auto) Abs Immat Gran (auto) Absolute Neuts (auto) Absolute Nucleated RBC Nucleated RBC % (auto) Smear Tech's Comments PT INR PTT (Heparin Protocol) > 200.0 H* D 105.7 H D D-Dimer VBG pH VBG pCO2 VBG pO2 VBG HCO3 VBG O2 Saturation VBG Base Excess Sodium Potassium Chloride Carbon Dioxide Anion Gap BUN Creatinine Estim Creat Clear Calc Estimated GFR POC Glucose 181 H Random Glucose Lactic Acid Calcium Phosphorus Magnesium Ferritin Total Bilirubin AST ALT Alkaline Phosphatase C-Reactive Protein Total Protein Albumin Procalcitonin Ur Random Sodium 04/07/20 04/07/20 13:45 15:07 WBC RBC Hgb Hct MCV MCH MCHC RDW Plt Count Immature Gran % (Auto) Neut % (Auto) Lymph % (Auto) [place] % (Auto) Eos % (Auto) Baso % (Auto) Lymph # (Auto) [place] # (Auto) Eos # (Auto) Baso # (Auto) Abs Immat Gran (auto) Absolute Neuts (auto) Absolute Nucleated RBC Nucleated RBC % (auto) Smear Tech's Comments PT INR PTT (Heparin Protocol) 43.6 L D D-Dimer VBG pH VBG pCO2 VBG pO2 VBG HCO3 VBG O2 Saturation VBG Base Excess Sodium Potassium Chloride Carbon Dioxide Anion Gap BUN Creatinine Estim Creat Clear Calc Estimated GFR POC Glucose 163 H Random Glucose Lactic Acid Calcium Phosphorus Magnesium Ferritin Total Bilirubin AST ALT Alkaline Phosphatase C-Reactive Protein Total Protein Albumin Procalcitonin Ur Random Sodium Microbiology Microbiology Results: Microbiology 03/24/20 10:32 Blood - Venous Blood Culture - Final No growth after 5 days. 03/24/20 10:20 Blood - Venous Blood Culture - Final No growth after 5 days. Assessment & Plan Assessment and plan (1) TYE (acute kidney injury): Status: Acute (2) Hyperkalemia: Status: Acute (3) COVID-19: Status: Acute Assessment and Plan: 1. TYE; renal fucn improved 2. HyperNa: resolved with FWatre replaceemnt...suspect high resp rate palying a role in incr incr IWL as not poyuric and no diarrhea 3. Incr Bun/Cr: multifact including high catabloic rate; decr IV vol and steroids 4. Resp Fail: covid lung REC: d/c D5W and repeat lytes to track need for type of fluid s to proved; if HyperNa recurs then will check urine osm Time Spent With Patient Time: Total time spent is greater than 50% in coordination of care (as documented) at patient's floor/unit and/or counseling patient:
[2020-04-07] MEDS: Calcium Gluconate/NaCl,Iso-Osm 1 GM/50 ML PLAST..BAG IV (16:45)
[2020-04-07 18:22] LABS: Base Excess VBG -2.1 mmol/L; HCO3 VBG 25 mmol/L; PCO2 VBG 53 mmhg; PO2 VBG 35 mmhg; pH VBG 7.29 (7.32-7.43)
[2020-04-07 19:00] LABS: Anion Gap 14 (12-20); Blood Urea Nitrogen 87 mg/dL (9-16); Calcium 7.3 mg/dL (8.4-10.2); Carbon Dioxide 23 mmol/L (22-29); Chloride 99 mmol/L (96-108); Creatinine Clr Calc Pharmacy 42.9; Estimated Glomerular Filt Rate 49; Glucose Random 133 mg/dL (60-115); Sodium 130 mmol/L (135-145)
[2020-04-07] MEDS: Insulin Regular, Human 100 UNIT/ML 3 ML VIAL IVPUSH (19:25)
[2020-04-07] MEDS: Albuterol Sulfate (0.083%) 2.5 MG/3 ML VIAL.NEB 10 MG INHALE (19:27)
[2020-04-07 19:43] LABS: Glucose, Whole Blood 125 mg/dL (60-115)
[2020-04-07 20:02] LABS: PTT Heparin Drip 78.8 SEC (53-77.9)
[2020-04-07 21:20] LABS: Glucose, Whole Blood 148 mg/dL (60-115)
[2020-04-07 23:03] LABS: Anion Gap 15 (12-20); Blood Urea Nitrogen 90 mg/dL (9-16); Calcium 7.1 mg/dL (8.4-10.2); Carbon Dioxide 22 mmol/L (22-29); Chloride 100 mmol/L (96-108); Creatinine Clr Calc Pharmacy 39.5; Estimated Glomerular Filt Rate 44; Glucose Random 148 mg/dL (60-115); Potassium 5.8 mmol/l (3.3-5.1); Sodium 131 mmol/L (135-145)
[2020-04-07] MEDS: Sodium Polystyrene Sulfon/Sorb 15 GM/60 ML ORAL.SUSP 30 GM PO (23:32)
[2020-04-08] VITALS (30 sets, daily range): BP systolic 97–139; BP diastolic 29–64; PULSE 67–92; RESP 12–28; TEMP 35.8–36.6; O2SAT 90–98; BMI 29.0
[2020-04-08 00:18] LABS: Glucose, Whole Blood 166 mg/dL (60-115)
[2020-04-08] MEDS: 0.9 % Sodium Chloride Flush 3 ML SYRINGE IVFLUSH ×2 (01:29→08:00)
[2020-04-08 02:43] LABS: PTT Heparin Drip 64.3 SEC (53-77.9)
[2020-04-08 02:55] LABS: Anion Gap 17 (12-20); Carbon Dioxide 20 mmol/L (22-29); Chloride 103 mmol/L (96-108); Potassium 6.1 mmol/l (3.3-5.1); Sodium 134 mmol/L (135-145)
[2020-04-08] MEDS: Albuterol Sulfate (0.083%) 2.5 MG/3 ML VIAL.NEB 10 MG INHALE (03:10)
[2020-04-08] MEDS: Insulin Regular, Human 100 UNIT/ML 3 ML VIAL 8 UNIT IVPUSH (03:14)
[2020-04-08] MEDS: Dextrose 50 % 25 GM/50 ML SYRINGE IVPUSH (03:14)
[2020-04-08] MEDS: Calcium Gluconate/NaCl,Iso-Osm 2 GM/100 ML PLAST..BAG IV (03:15)
[2020-04-08] MEDS: Insulin Regular/NS 100 UNIT/100 ML PLAST..BAG IVCONT (03:37)
[2020-04-08] MEDS: Heparin Sodium,Porcine/1/2NS 25,000 UNIT/250 ML IV.SOLN 6.74 UNIT IVCONT (03:38)
[2020-04-08] MEDS: Sodium Polystyrene Sulfon/Sorb 15 GM/60 ML ORAL.SUSP 60 GM PO ×2 (03:52→16:00)
[2020-04-08 04:23] LABS: Glucose, Whole Blood 199 mg/dL (60-115)
--- NOTE | 2020-04-08 04:29 | PC.NURSE ---
p. hyperkalemia- I. K+ 5.8 RX WITH INSULIN 5 UNITS IV/ 12 ML D50 IV /KAYEXALATE 30GM-DESPITE TX AT 0200 k+ 6.1-further tx I. INSULIN 8 UNITS IV/D50 IV 25 ML IV/CA++GLUCONATE 2 GM IV/KAYEXALATE 60 GM- E. DROWSY/AWAKENS TO VOICE/GIVES THUMBS UP/NODS TO QUESTION/SALCED[place] WEAKLY. COMPLEXION PALE. 1+ EDEMA LOWER LEGS. MAINTAINED ON BIPAP 16/10 FIO2 90%. WITH MINIMAL EXERTION,DYSPNEIC WITH RETRACTIONS. BREATH SOUNDS COARSE/DIMINISHED THROUGHOUT. PT CAN NOT TOLERATE ANY BREAK IN BIPAP CIRCUIT. PT EXPERIENCES IMMEDIATE O2 DESATURATION WITH ANY BREAK IN BIPAP CIRCUIT. ECG DISPLAYS AFIB. PEAKED T WAVES ARE PRESENT. ABDOMEN BENIGN. OLSON CATHETER PATENT AND DRAINING CONC SEDIMENTED URINE. HEPARIN DRIP PER PTT-HD PROTOCOL. INSULIN DRIP TITRATED PER DIRECTION OF BENJA GUZMAN.
[2020-04-08 06:24] LABS: Glucose, Whole Blood 130 mg/dL (60-115)
[2020-04-08] MEDS: methylPREDNISolone Sod Succ/PF 125 MG/2 ML VIAL 250 MG IV ×3 (06:25→18:16)
[2020-04-08 06:28] LABS: Base Excess VBG -4.9 mmol/L; HCO3 VBG 22 mmol/L; PCO2 VBG 48 mmhg; PO2 VBG 38 mmhg; pH VBG 7.28 (7.32-7.43)
[2020-04-08 06:29] LABS: Blood Gas Serial # 5396; Oxygen Saturation VBG 70.7 %
[2020-04-08 06:30] LABS: Basophils Percent Auto 0.1 % (0-2); Lymphocytes Percent Auto 2.7 % (20-40); MANUAL DIFF FLAG SCAN; NRBC Pct Auto 0.1 /100WBC (0.0-0.2); PLT ABN DIST 1; SCAN SMEAR FLAG 1
[2020-04-08 06:32] LABS: Hematocrit 42.3 % (42-52); Imm Gran Abs Auto 0.32 X10*3/uL (0.00-0.03); Imm Gran Pct Auto 1.2 % (0.0-0.4); Lymphocytes Absolute Auto 0.7 X10*3/uL (1.2-4.9); Mean Corpuscular HGB Conc 33.1 g/dl (31.0-36.0); Mean Corpuscular Hemoglobin 30.2 pg (27.0-33.0); Mean Corpuscular Volume 91.4 fL (80-98); Mean Platelet Volume 13.5 fL (9.4-12.4); Monocytes Absolute Auto 1.7 X10*3/uL (0.1-1.2); Monocytes Percent Auto 6.2 % (2-11); Neutrophils Absolute Auto 24.1 X10*3/uL (2.0-8.3); Neutrophils Percent Auto 89.8 % (45-73); Platelet Count 125 X10*3/uL (160-400); Red Blood Count 4.63 X10*6/uL (4.60-5.80); White Blood Count 26.9 X10*3/uL (4.8-10.8)
[2020-04-08 06:50] LABS: SLIDE REVIEW VERIFIED
[2020-04-08 06:58] LABS: Alanine Aminotransferase 29 U/L (0-40); Albumin Level 2.7 g/dL (3.5-5.0); Alkaline Phosphatase 58 U/L (39-117); Anion Gap 17 (12-20); Aspartate Amino Transferase 32 U/L (5-37); Bilirubin Total 2.2 mg/dL (0.0-1.0); Blood Urea Nitrogen 104 mg/dL (9-16); C Reactive Protein 0.45 mg/dL (< or = 0.50); Carbon Dioxide 22 mmol/L (22-29); Chloride 103 mmol/L (96-108); Creatinine Clr Calc Pharmacy 31.1; Estimated Glomerular Filt Rate 33; Glucose Random 111 mg/dL (60-115); Potassium 5.6 mmol/l (3.3-5.1); Sodium 136 mmol/L (135-145); Total Protein 5.2 g/dL (6.5-8.0)
[2020-04-08 07:27] LABS: Sodium Urine Random < 20.0 mmol/L
[2020-04-08 07:32] LABS: D Dimer 10920 NG/ML
[2020-04-08 07:38] LABS: Procalcitonin 0.11 ng/mL
[2020-04-08 07:52] LABS: Ferritin 3639 ng/mL (20-250)
[2020-04-08 08:12] LABS: Glucose, Whole Blood 92 mg/dL (60-115)
[2020-04-08] MEDS: Dextrose 5 % and 0.45 % NaCl 1,000 ML 60 ML IVCONT (08:38)
[2020-04-08 08:56] LABS: PTT Heparin Drip 60.6 SEC (53-77.9)
--- NOTE | 2020-04-08 09:13 | PC.NURSE ---
still working with IT to get full access to ICU [facility]. Have some access at the moment. unable to document on worklist. waiting for call back from IT.
[2020-04-08 09:28] LABS: Anion Gap 15 (12-20); Blood Urea Nitrogen 106 mg/dL (9-16); Calcium 7.7 mg/dL (8.4-10.2); Carbon Dioxide 23 mmol/L (22-29); Chloride 104 mmol/L (96-108); Creatinine Clr Calc Pharmacy 31.2; Estimated Glomerular Filt Rate 33; Glucose Random 78 mg/dL (60-115); Potassium 5.8 mmol/l (3.3-5.1); Sodium 136 mmol/L (135-145)
--- NOTE | 2020-04-08 09:51 | PC.NURSE ---
able to access for ICU from IT
--- NOTE | 2020-04-08 10:29 | MHC.CLN ---
F/U PT IS NPO- WILL UPDATE DIET ORDER NOTED FRAGILE SKIN IF TPN NEEDED; RECOMMEND D15AA5% AT 40CC/HR TO PROVIDE 682KCALS, 48G PROTEIN (.6/KG) REPLETE LYTES NEEDED FOLLOWING
[2020-04-08 10:54] LABS: Glucose, Whole Blood 85 mg/dL (60-115)
[2020-04-08] MEDS: fentaNYL citrate/NS 1,000 MCG/100 ML PLAST..BAG 2 MCG IVCONT (11:18)
[2020-04-08] MEDS: Furosemide 40 MG/4 ML VIAL IVPUSH (12:26)
[2020-04-08] MEDS: Albumin Human 25 % 100 ML IV (12:26)
[2020-04-08 12:49] LABS: Anion Gap 14 (12-20); Blood Urea Nitrogen 105 mg/dL (9-16); Calcium 7.6 mg/dL (8.4-10.2); Carbon Dioxide 24 mmol/L (22-29); Chloride 105 mmol/L (96-108); Creatinine Clr Calc Pharmacy 32.4; Estimated Glomerular Filt Rate 35; Glucose Random 93 mg/dL (60-115); Potassium 5.7 mmol/l (3.3-5.1); Sodium 137 mmol/L (135-145)
[2020-04-08 12:50] LABS: Glucose, Whole Blood 83 mg/dL (60-115)
--- NOTE | 2020-04-08 14:34 | MHC.CM.PN ---
PER REVIEW OF NOTES, NO PLAN FOR DISCHARGE. CASE MANAGEMENT FOLLOWING FOR ANY DISCHARGE NEEDS THAT MAY ARISE.
[2020-04-08 15:38] LABS: Glucose, Whole Blood 99 mg/dL (60-115)
--- NOTE | 2020-04-08 16:17 | P.PNCC_ITS ---
Subjective Subjective Date of Service: 04/08/20 Interval History: Mr. Us was admitted to ICU on Mar 30 for acute respiratory failure secondary to COVID pneumonia. 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 His was diagnosed with COVID-19 at the beginning of March. He began having symptoms on March 18; his 's symptoms have since resolved. He was admitted to [facility] on 03/24/2020 with progressive hypoxemia secondary to COVID-19. Presenting sat was 80% on room air. Lab work revealed elevated ferritin of 1492, LDH of 426 and CRP of 8.67. Chest x-ray was unremarkable. He required oxygen by Venti mask to maintain oxygen saturations above 90. He was admitted to medicine and treated with remdesivir and dexamethasone. Escalating FiO2 requirements required noninvasive positive pressure ventilation, for which he was transferred to ICU on Mar 30. He was given DVT prophylaxis level-Lovenox. Hospital course further complicated by coagulopathy and acute kidney injury. In the ICU, the patient?s mental status has remained good for the most part. He?s required NIV by mask almost continuously. A noncontrast chest CT on 04/03 showed diffuse bilateral infiltrates throughout almost the entire lung, consistent with coronavirus disease, although the infiltrates were not as dense as some that we have seen (which probably accounts for why he has not yet required mechanical ventilation). Duplex scan of the lower extremities that day showed clot throughout the right lower extremity and in the left calf. So we upped his anticoagulation to Lovenox 1 mg/kg bid, bumped his steroids to Solumedrol 80 mg bid, and added Pepcid and thiamine. He was also started him on a D5W infusion because of hypernatremia and because of a markedly elevated renal ratio, with a low urine sodium. On 04/05, his minute volume on CPAP was up to 27Liters, and central venous pCO2 was up to 55mm. We changed him over to BiPAP, held his Lovenox, and gave him ? dose tPA. We also started him on an insulin drip. By the next day (04/06) there was no clear improvement in his oxygenation or pCO2. With the high CHB load from the D5W he was getting at 200cc/hr (for his hypernatremia and high renal ratio), his Ve was up to high 20s. We started him on pulse steroids, 1G/day x 3 days, and a fentanyl drip and his came in to spend some time with him. Since then, his FiO2 has gradually come down to as low as 70%. His RR and minute vol are consistently down, currently at 14Liters and we were able to drop his iPAP from 16 to 14. CVBG this morning showed 7.28/48/-5. See Vital Signs below. RR now running 18-22 on fentanyl at 20 mcg. Vt 700cc, Ve 14L. Had a few BP?s today in the 90?s that responded to albumin. Heart rhythm is atrial fibrillation, but reasonably controlled with no meds. He continues afebrile. He?s easily arousable and gives me a thrumbs up. His eyes lit up and he shook my hand when I told him his was going to come in and see him today. He has a stage 2 press ulcer on his nose from the BiPAP mask. The mask was changed yesterday. Has trivial accessory muscle use and work of breathing is very slightly increased but he generally looks comfortable. I asked him if he could keep breathing like this for another 2 weeks, and he gave me a thumbs up. No pressors. No JVD. Normal expiratory phase. Abdomen benign. 1-2+ leg edema today. I&Os: U/o average overnite was down to about 30cc/hr. LABORATORY DATA: As below. Notably, BUN and creatinine up to 106/1.9 this morning, and K up to 6.1 (treated). Urine sodium is still less [place] 20[place] [address]. Ferritin up to 3600, CRP is way down, PCT is down. Steroids: Day#3 of pulse steroids. ECHOCARDIOGRAM 04/04 notable for: 1. Normal LV systolic function with mild LVH. 2. Normal right ventricular cavity size, w normal right ventricular fxn. 3. Moderately enlarged left atrium 4. Mild aortic and mitral regurgitation 5. Normal RV systolic pressure 6. Severely dilated ascending aorta at 5.1 cm IMPRESSION: 1. Bilateral COVID-19 ARDS. Resp status definitely improved today, with FiO2 lower and pCO2 low, despite lower RR and lower Ve. Unlclear if this is from the tPA or the pulse steroids. Today?s the last day, switch back to Solu-Medrol 80mg bid tomorrow. Continuing on heparin gtt for his DVT. 2. Acute hypoxemic and hypercarbic respiratory failure. Secondary to above, and possible pulmonary VTE (suggested by the severe hypoxemia w high DDimer ). 3. TYE. Secondary to COVID-19, plus dehydration. Renal indices and potassium worse today. Discussed w Dr Salgado. Started him on D5 1/2NS. Follow renal indices and urine-Na daily. 4. Hyperkalemia. Gave one dose rectal kayexelate last nite, giving another dose now. Also gave albumin and Lasix. Recheck chemistries at 6pm. 5. Hypernatremia. Finally resolved. 6. Afib. Rate reasonably controlled on no medications. Restarted anticoagulation 04/07 with heparin gtt. 7. ID. No abx indicated (yet). 8. Nutrition. Starting him on TPN today. Prognosis is poor, given his age. There?ve been definite improvements in his resp status, but renal status is worse. Spoke to his again today. She doesn?t think he?d want HD. We?ll continue with current plan. DNR/DNI status. No intubation. Has to make it on BiPAP. Critical care time: 60 min. Physical Exam Vital Signs: Vital Signs: Last Vital Signs Temp 97.3 F 04/08/20 15:52 Pulse 69 04/08/20 15:52 Resp 17 04/08/20 15:52 BP 107/50 L 04/08/20 15:52 Pulse Ox 93 04/08/20 15:52 Body Mass Index 29.0 Objective Data Labs CBC & Chem 7: 04/08/20 06:07 04/08/20 12:22 Labs: Laboratory Results - last 24 hr 04/07/20 04/07/20 04/07/20 18:05 18:05 19:27 WBC RBC Hgb Hct MCV MCH MCHC RDW Plt Count MPV Immature Gran % (Auto) Neut % (Auto) Lymph % (Auto) [place] % (Auto) Eos % (Auto) Baso % (Auto) Lymph # (Auto) [place] # (Auto) Eos # (Auto) Baso # (Auto) Abs Immat Gran (auto) Absolute Neuts (auto) Absolute Nucleated RBC Nucleated RBC % (auto) Smear Tech's Comments PTT (Heparin Protocol) D-Dimer VBG pH 7.29 L VBG pCO2 53 VBG pO2 35 VBG HCO3 25 VBG O2 Saturation 65.0 VBG Base Excess -2.1 Sodium 130 L Potassium 6.0 H* Chloride 99 Carbon Dioxide 23 Anion Gap 14 BUN 87 H* Creatinine 1.40 Estim Creat Clear Calc 42.9 Estimated GFR 49 POC Glucose 125 H Random Glucose 133 H Calcium 7.3 L Ferritin Total Bilirubin AST ALT Alkaline Phosphatase C-Reactive Protein Total Protein Albumin Procalcitonin Ur Random Sodium 04/07/20 04/07/20 04/07/20 19:41 21:11 22:00 WBC RBC Hgb Hct MCV MCH MCHC RDW Plt Count MPV Immature Gran % (Auto) Neut % (Auto) Lymph % (Auto) [place] % (Auto) Eos % (Auto) Baso % (Auto) Lymph # (Auto) [place] # (Auto) Eos # (Auto) Baso # (Auto) Abs Immat Gran (auto) Absolute Neuts (auto) Absolute Nucleated RBC Nucleated RBC % (auto) Smear Tech's Comments PTT (Heparin Protocol) 78.8 H D D-Dimer VBG pH VBG pCO2 VBG pO2 VBG HCO3 VBG O2 Saturation VBG Base Excess Sodium 131 L Potassium 5.8 H Chloride 100 Carbon Dioxide 22 Anion Gap 15 BUN 90 H* Creatinine 1.52 H Estim Creat Clear Calc 39.5 Estimated GFR 44 POC Glucose 148 H Random Glucose 148 H Calcium 7.1 L Ferritin Total Bilirubin AST ALT Alkaline Phosphatase C-Reactive Protein Total Protein Albumin Procalcitonin Ur Random Sodium 04/08/20 04/08/20 04/08/20 00:12 02:15 02:15 WBC RBC Hgb Hct MCV MCH MCHC RDW Plt Count MPV Immature Gran % (Auto) Neut % (Auto) Lymph % (Auto) [place] % (Auto) Eos % (Auto) Baso % (Auto) Lymph # (Auto) [place] # (Auto) Eos # (Auto) Baso # (Auto) Abs Immat Gran (auto) Absolute Neuts (auto) Absolute Nucleated RBC Nucleated RBC % (auto) Smear Tech's Comments PTT (Heparin Protocol) 64.3 D-Dimer VBG pH VBG pCO2 VBG pO2 VBG HCO3 VBG O2 Saturation VBG Base Excess Sodium 134 L Potassium 6.1 H* Chloride 103 Carbon Dioxide 20 L Anion Gap 17 BUN Creatinine Estim Creat Clear Calc Estimated GFR POC Glucose 166 H Random Glucose Calcium Ferritin Total Bilirubin AST ALT Alkaline Phosphatase C-Reactive Protein Total Protein Albumin Procalcitonin Ur Random Sodium 04/08/20 04/08/20 04/08/20 04:15 05:57 06:07 WBC 26.9 H RBC 4.63 Hgb 14.0 Hct 42.3 MCV 91.4 MCH 30.2 MCHC 33.1 RDW 15.0 Plt Count 125 L MPV 13.5 H Immature Gran % (Auto) 1.2 H Neut % (Auto) 89.8 H Lymph % (Auto) 2.7 L [place] % (Auto) 6.2 Eos % (Auto) 0.0 Baso % (Auto) 0.1 Lymph # (Auto) 0.7 L [place] # (Auto) 1.7 H Eos # (Auto) 0.0 Baso # (Auto) 0.0 Abs Immat Gran (auto) 0.32 H Absolute Neuts (auto) 24.1 H Absolute Nucleated RBC 0.030 H Nucleated RBC % (auto) 0.1 Smear Tech's Comments VERIFIED PTT (Heparin Protocol) D-Dimer VBG pH VBG pCO2 VBG pO2 VBG HCO3 VBG O2 Saturation VBG Base Excess Sodium Potassium Chloride Carbon Dioxide Anion Gap BUN Creatinine Estim Creat Clear Calc Estimated GFR POC Glucose 199 H 130 H Random Glucose Calcium Ferritin Total Bilirubin AST ALT Alkaline Phosphatase C-Reactive Protein Total Protein Albumin Procalcitonin Ur Random Sodium 04/08/20 04/08/20 04/08/20 06:07 06:07 06:07 WBC RBC Hgb Hct MCV MCH MCHC RDW Plt Count MPV Immature Gran % (Auto) Neut % (Auto) Lymph % (Auto) [place] % (Auto) Eos % (Auto) Baso % (Auto) Lymph # (Auto) [place] # (Auto) Eos # (Auto) Baso # (Auto) Abs Immat Gran (auto) Absolute Neuts (auto) Absolute Nucleated RBC Nucleated RBC % (auto) Smear Tech's Comments PTT (Heparin Protocol) D-Dimer 22341 VBG pH VBG pCO2 VBG pO2 VBG HCO3 VBG O2 Saturation VBG Base Excess Sodium 136 Potassium 5.6 H Chloride 103 Carbon Dioxide 22 Anion Gap 17 BUN 104 H* Creatinine 1.96 H Estim Creat Clear Calc 31.1 Estimated GFR 33 POC Glucose Random Glucose 111 Calcium 8.0 L D Ferritin 3639 H Total Bilirubin 2.2 H AST 32 ALT 29 Alkaline Phosphatase 58 D C-Reactive Protein 0.45 Total Protein 5.2 L Albumin 2.7 L Procalcitonin 0.11 Ur Random Sodium 04/08/20 04/08/20 04/08/20 06:07 06:41 08:07 WBC RBC Hgb Hct MCV MCH MCHC RDW Plt Count MPV Immature Gran % (Auto) Neut % (Auto) Lymph % (Auto) [place] % (Auto) Eos % (Auto) Baso % (Auto) Lymph # (Auto) [place] # (Auto) Eos # (Auto) Baso # (Auto) Abs Immat Gran (auto) Absolute Neuts (auto) Absolute Nucleated RBC Nucleated RBC % (auto) Smear Tech's Comments PTT (Heparin Protocol) D-Dimer VBG pH 7.28 L VBG pCO2 48 VBG pO2 38 VBG HCO3 22 VBG O2 Saturation 70.7 VBG Base Excess -4.9 Sodium Potassium Chloride Carbon Dioxide Anion Gap BUN Creatinine Estim Creat Clear Calc Estimated GFR POC Glucose 92 Random Glucose Calcium Ferritin Total Bilirubin AST ALT Alkaline Phosphatase C-Reactive Protein Total Protein Albumin Procalcitonin Ur Random Sodium < 20.0 04/08/20 04/08/20 04/08/20 08:30 08:30 10:39 WBC RBC Hgb Hct MCV MCH MCHC RDW Plt Count MPV Immature Gran % (Auto) Neut % (Auto) Lymph % (Auto) [place] % (Auto) Eos % (Auto) Baso % (Auto) Lymph # (Auto) [place] # (Auto) Eos # (Auto) Baso # (Auto) Abs Immat Gran (auto) Absolute Neuts (auto) Absolute Nucleated RBC Nucleated RBC % (auto) Smear Tech's Comments PTT (Heparin Protocol) 60.6 D-Dimer VBG pH VBG pCO2 VBG pO2 VBG HCO3 VBG O2 Saturation VBG Base Excess Sodium 136 Potassium 5.8 H Chloride 104 Carbon Dioxide 23 Anion Gap 15 BUN 106 H* Creatinine 1.95 H Estim Creat Clear Calc 31.2 Estimated GFR 33 POC Glucose 85 Random Glucose 78 Calcium 7.7 L Ferritin Total Bilirubin AST ALT Alkaline Phosphatase C-Reactive Protein Total Protein Albumin Procalcitonin Ur Random Sodium 04/08/20 04/08/20 04/08/20 12:22 12:45 14:11 WBC RBC Hgb Hct MCV MCH MCHC RDW Plt Count MPV Immature Gran % (Auto) Neut % (Auto) Lymph % (Auto) [place] % (Auto) Eos % (Auto) Baso % (Auto) Lymph # (Auto) [place] # (Auto) Eos # (Auto) Baso # (Auto) Abs Immat Gran (auto) Absolute Neuts (auto) Absolute Nucleated RBC Nucleated RBC % (auto) Smear Tech's Comments PTT (Heparin Protocol) D-Dimer VBG pH VBG pCO2 VBG pO2 VBG HCO3 VBG O2 Saturation VBG Base Excess Sodium 137 Potassium 5.7 H Chloride 105 Carbon Dioxide 24 Anion Gap 14 BUN 105 H* Creatinine 1.88 H Estim Creat Clear Calc 32.4 Estimated GFR 35 POC Glucose 83 99 Random Glucose 93 Calcium 7.6 L Ferritin Total Bilirubin AST ALT Alkaline Phosphatase C-Reactive Protein Total Protein Albumin Procalcitonin Ur Random Sodium Microbiology Microbiology Results: Microbiology 03/24/20 10:32 Blood - Venous Blood Culture - Final No growth after 5 days. 03/24/20 10:20 Blood - Venous Blood Culture - Final No growth after 5 days. Progress Note: A&P Time Spent With Patient Time: Total time spent is greater than 50% in coordination of care (as documented) at patient's floor/unit and/or counseling patient: Total time spent with greater than 50% in coordination of care (as documented) at patient's floor/unit and/or counseling patient:: 0 Critical Care Time Critical Care Time (minutes): 60
--- NOTE | 2020-04-08 17:34 | PC.NURSE ---
patient had large bm post kayexalate, repositioned, changed, cleaned. patient o2 dropped to 85% briefly with movement, then returned to 92%.
[2020-04-08 18:26] LABS: Base Excess VBG -2.7 mmol/L; HCO3 VBG 23 mmol/L; Oxygen Saturation VBG 66.7 %; PCO2 VBG 46 mmhg; PO2 VBG 37 mmhg; pH VBG 7.33 (7.32-7.43)
--- NOTE | 2020-04-08 18:30 | P.PNNP_ITS ---
Subjective Subjective Date of Service: 04/08/20 Interval history: events noted and d/w icu team hyperkand decr uop over past 24 hrs Physical Exam Vital Signs: Vital Signs: Last Vital Signs Temp 96.4 F L 04/08/20 17:52 Pulse 88 04/08/20 17:52 Resp 19 04/08/20 17:52 BP 121/58 L 04/08/20 17:52 Pulse Ox 92 04/08/20 17:52 Body Mass Index 29.0 Const: Other: General - no significant distress Cardiovascular - regular rate and rhythm, S1-S2 Lungs - dim sounds, distress with any exertion, Abdomen - soft, nontender, no rebound or guarding Extremities - no edema bilaterally Neuro - awake and alert, no focal deficits General: cooperative, no acute distress, alert, awake and ill appearing Nutritional Appearance: well nourished Orientation/consciousness: patient oriented x3 HENMT: Head: Yes normal to inspection, Yes normocephalic and Yes atraumatic Eyes: General: appearance normal, both eyes and all related structures Sclerae: sclerae normal EOM: EOMs intact bilaterally Neck: Neck: Yes no lymphadenopathy, Yes trachea midline and Yes supple Chest: Chest palpation & inspection: normal inspection of the chest Resp: Other: labored breathing with conversation but able to speak in full sentences Effort & Inspection: normal respiratory effort, abnormal respiratory pattern and no respiratory distress Auscultation: clear to auscultation bilaterally, crackles bilateral and diffuse and diminished lung sounds Cardio: Other: General - no significant distress Cardiovascular - regular rate and rhythm, S1-S2 Lungs - dim sounds, distress with any exertion, Abdomen - soft, nontender, no rebound or guarding Extremities - no edema bilaterally Neuro - awake and alert, no focal deficits Rate: regular rate and tachycardic Rhythm: regular rhythm Heart sounds: S1 normal heart sound present, S2 normal heart sound present, no gallops, no murmurs and no rubs GI: Palpation (GI): Soft to palpation, nontender, no guarding and Other GI palpation findings present ( Nontender) Auscultation: normal bowel sounds Skin: General skin exam: no rashes or lesions noted Neuro: General: patient oriented x3 Cranial nerves: Yes CN's II-XII intact bilaterally and Yes Bilaterally intact EOM present Extrem: General: Yes normal to inspection, Yes no pedal edema, No clubbing, No cyanosis, No edema and No pedal edema Objective Data Labs CBC & Chem 7: 04/08/20 06:07 04/08/20 12:22 Labs: Laboratory Results - last 24 hr 04/07/20 04/07/20 04/07/20 18:05 19:27 19:41 WBC RBC Hgb Hct MCV MCH MCHC RDW Plt Count MPV Immature Gran % (Auto) Neut % (Auto) Lymph % (Auto) [place] % (Auto) Eos % (Auto) Baso % (Auto) Lymph # (Auto) [place] # (Auto) Eos # (Auto) Baso # (Auto) Abs Immat Gran (auto) Absolute Neuts (auto) Absolute Nucleated RBC Nucleated RBC % (auto) Smear Tech's Comments PTT (Heparin Protocol) 78.8 H D D-Dimer VBG pH VBG pCO2 VBG pO2 VBG HCO3 VBG O2 Saturation VBG Base Excess Sodium 130 L Potassium 6.0 H* Chloride 99 Carbon Dioxide 23 Anion Gap 14 BUN 87 H* Creatinine 1.40 Estim Creat Clear Calc 42.9 Estimated GFR 49 POC Glucose 125 H Random Glucose 133 H Calcium 7.3 L Ferritin Total Bilirubin AST ALT Alkaline Phosphatase C-Reactive Protein Total Protein Albumin Procalcitonin Ur Random Sodium 04/07/20 04/07/20 04/08/20 21:11 22:00 00:12 WBC RBC Hgb Hct MCV MCH MCHC RDW Plt Count MPV Immature Gran % (Auto) Neut % (Auto) Lymph % (Auto) [place] % (Auto) Eos % (Auto) Baso % (Auto) Lymph # (Auto) [place] # (Auto) Eos # (Auto) Baso # (Auto) Abs Immat Gran (auto) Absolute Neuts (auto) Absolute Nucleated RBC Nucleated RBC % (auto) Smear Tech's Comments PTT (Heparin Protocol) D-Dimer VBG pH VBG pCO2 VBG pO2 VBG HCO3 VBG O2 Saturation VBG Base Excess Sodium 131 L Potassium 5.8 H Chloride 100 Carbon Dioxide 22 Anion Gap 15 BUN 90 H* Creatinine 1.52 H Estim Creat Clear Calc 39.5 Estimated GFR 44 POC Glucose 148 H 166 H Random Glucose 148 H Calcium 7.1 L Ferritin Total Bilirubin AST ALT Alkaline Phosphatase C-Reactive Protein Total Protein Albumin Procalcitonin Ur Random Sodium 04/08/20 04/08/20 04/08/20 02:15 02:15 04:15 WBC RBC Hgb Hct MCV MCH MCHC RDW Plt Count MPV Immature Gran % (Auto) Neut % (Auto) Lymph % (Auto) [place] % (Auto) Eos % (Auto) Baso % (Auto) Lymph # (Auto) [place] # (Auto) Eos # (Auto) Baso # (Auto) Abs Immat Gran (auto) Absolute Neuts (auto) Absolute Nucleated RBC Nucleated RBC % (auto) Smear Tech's Comments PTT (Heparin Protocol) 64.3 D-Dimer VBG pH VBG pCO2 VBG pO2 VBG HCO3 VBG O2 Saturation VBG Base Excess Sodium 134 L Potassium 6.1 H* Chloride 103 Carbon Dioxide 20 L Anion Gap 17 BUN Creatinine Estim Creat Clear Calc Estimated GFR POC Glucose 199 H Random Glucose Calcium Ferritin Total Bilirubin AST ALT Alkaline Phosphatase C-Reactive Protein Total Protein Albumin Procalcitonin Ur Random Sodium 04/08/20 04/08/20 04/08/20 05:57 06:07 06:07 WBC 26.9 H RBC 4.63 Hgb 14.0 Hct 42.3 MCV 91.4 MCH 30.2 MCHC 33.1 RDW 15.0 Plt Count 125 L MPV 13.5 H Immature Gran % (Auto) 1.2 H Neut % (Auto) 89.8 H Lymph % (Auto) 2.7 L [place] % (Auto) 6.2 Eos % (Auto) 0.0 Baso % (Auto) 0.1 Lymph # (Auto) 0.7 L [place] # (Auto) 1.7 H Eos # (Auto) 0.0 Baso # (Auto) 0.0 Abs Immat Gran (auto) 0.32 H Absolute Neuts (auto) 24.1 H Absolute Nucleated RBC 0.030 H Nucleated RBC % (auto) 0.1 Smear Tech's Comments VERIFIED PTT (Heparin Protocol) D-Dimer 75241 VBG pH VBG pCO2 VBG pO2 VBG HCO3 VBG O2 Saturation VBG Base Excess Sodium Potassium Chloride Carbon Dioxide Anion Gap BUN Creatinine Estim Creat Clear Calc Estimated GFR POC Glucose 130 H Random Glucose Calcium Ferritin Total Bilirubin AST ALT Alkaline Phosphatase C-Reactive Protein Total Protein Albumin Procalcitonin Ur Random Sodium 04/08/20 04/08/20 04/08/20 06:07 06:07 06:07 WBC RBC Hgb Hct MCV MCH MCHC RDW Plt Count MPV Immature Gran % (Auto) Neut % (Auto) Lymph % (Auto) [place] % (Auto) Eos % (Auto) Baso % (Auto) Lymph # (Auto) [place] # (Auto) Eos # (Auto) Baso # (Auto) Abs Immat Gran (auto) Absolute Neuts (auto) Absolute Nucleated RBC Nucleated RBC % (auto) Smear Tech's Comments PTT (Heparin Protocol) D-Dimer VBG pH 7.28 L VBG pCO2 48 VBG pO2 38 VBG HCO3 22 VBG O2 Saturation 70.7 VBG Base Excess -4.9 Sodium 136 Potassium 5.6 H Chloride 103 Carbon Dioxide 22 Anion Gap 17 BUN 104 H* Creatinine 1.96 H Estim Creat Clear Calc 31.1 Estimated GFR 33 POC Glucose Random Glucose 111 Calcium 8.0 L D Ferritin 3639 H Total Bilirubin 2.2 H AST 32 ALT 29 Alkaline Phosphatase 58 D C-Reactive Protein 0.45 Total Protein 5.2 L Albumin 2.7 L Procalcitonin 0.11 Ur Random Sodium 04/08/20 04/08/20 04/08/20 06:41 08:07 08:30 WBC RBC Hgb Hct MCV MCH MCHC RDW Plt Count MPV Immature Gran % (Auto) Neut % (Auto) Lymph % (Auto) [place] % (Auto) Eos % (Auto) Baso % (Auto) Lymph # (Auto) [place] # (Auto) Eos # (Auto) Baso # (Auto) Abs Immat Gran (auto) Absolute Neuts (auto) Absolute Nucleated RBC Nucleated RBC % (auto) Smear Tech's Comments PTT (Heparin Protocol) 60.6 D-Dimer VBG pH VBG pCO2 VBG pO2 VBG HCO3 VBG O2 Saturation VBG Base Excess Sodium Potassium Chloride Carbon Dioxide Anion Gap BUN Creatinine Estim Creat Clear Calc Estimated GFR POC Glucose 92 Random Glucose Calcium Ferritin Total Bilirubin AST ALT Alkaline Phosphatase C-Reactive Protein Total Protein Albumin Procalcitonin Ur Random Sodium < 20.0 04/08/20 04/08/20 04/08/20 08:30 10:39 12:22 WBC RBC Hgb Hct MCV MCH MCHC RDW Plt Count MPV Immature Gran % (Auto) Neut % (Auto) Lymph % (Auto) [place] % (Auto) Eos % (Auto) Baso % (Auto) Lymph # (Auto) [place] # (Auto) Eos # (Auto) Baso # (Auto) Abs Immat Gran (auto) Absolute Neuts (auto) Absolute Nucleated RBC Nucleated RBC % (auto) Smear Tech's Comments PTT (Heparin Protocol) D-Dimer VBG pH VBG pCO2 VBG pO2 VBG HCO3 VBG O2 Saturation VBG Base Excess Sodium 136 137 Potassium 5.8 H 5.7 H Chloride 104 105 Carbon Dioxide 23 24 Anion Gap 15 14 BUN 106 H* 105 H* Creatinine 1.95 H 1.88 H Estim Creat Clear Calc 31.2 32.4 Estimated GFR 33 35 POC Glucose 85 Random Glucose 78 93 Calcium 7.7 L 7.6 L Ferritin Total Bilirubin AST ALT Alkaline Phosphatase C-Reactive Protein Total Protein Albumin Procalcitonin Ur Random Sodium 04/08/20 04/08/20 04/08/20 12:45 14:11 18:10 WBC RBC Hgb Hct MCV MCH MCHC RDW Plt Count MPV Immature Gran % (Auto) Neut % (Auto) Lymph % (Auto) [place] % (Auto) Eos % (Auto) Baso % (Auto) Lymph # (Auto) [place] # (Auto) Eos # (Auto) Baso # (Auto) Abs Immat Gran (auto) Absolute Neuts (auto) Absolute Nucleated RBC Nucleated RBC % (auto) Smear Tech's Comments PTT (Heparin Protocol) D-Dimer VBG pH 7.33 VBG pCO2 46 VBG pO2 37 VBG HCO3 23 VBG O2 Saturation 66.7 VBG Base Excess -2.7 Sodium Potassium Chloride Carbon Dioxide Anion Gap BUN Creatinine Estim Creat Clear Calc Estimated GFR POC Glucose 83 99 Random Glucose Calcium Ferritin Total Bilirubin AST ALT Alkaline Phosphatase C-Reactive Protein Total Protein Albumin Procalcitonin Ur Random Sodium Microbiology Microbiology Results: Microbiology 03/24/20 10:32 Blood - Venous Blood Culture - Final No growth after 5 days. 03/24/20 10:20 Blood - Venous Blood Culture - Final No growth after 5 days. Assessment & Plan Assessment and plan (1) TYE (acute kidney injury): Status: Acute (2) Hyperkalemia: Status: Acute (3) COVID-19: Status: Acute Assessment and Plan: 1. TYE; renal func relatively stable but decr uop 2. HyperNa: resolved with FWatre replaceemnt...suspect high resp rate palying a role in incr incr IWL as not poyuric and no diarrhea 3. Incr Bun/Cr: multifact including high catabloic rate; decr IV vol and steroids 4. Resp Fail: covid lung 5. hyperk: challengin to treat as unable to give PO kayexalte d/t resp failure REC: cont to treat k with kayexlate retention enema ...but if ngt plced then given po; trial of lasix to incr urine k excretion Time Spent With Patient Time: Total time spent is greater than 50% in coordination of care (as documented) at patient's floor/unit and/or counseling patient:
[2020-04-08 18:39] LABS: Lactic Acid 1.9 mmol/L (0.5-2.0)
[2020-04-08 18:53] LABS: Anion Gap 15 (12-20); Blood Urea Nitrogen 106 mg/dL (9-16); Calcium 7.7 mg/dL (8.4-10.2); Carbon Dioxide 25 mmol/L (22-29); Chloride 103 mmol/L (96-108); Creatinine Clr Calc Pharmacy 33.8; Estimated Glomerular Filt Rate 36; Glucose Random 143 mg/dL (60-115); Potassium 5.3 mmol/l (3.3-5.1); Sodium 138 mmol/L (135-145)
[2020-04-08 20:22] LABS: Glucose, Whole Blood 146 mg/dL (60-115)
[2020-04-08] MEDS: Famotidine/PF 20 MG/2 ML VIAL IVPUSH (21:10)
[2020-04-09] VITALS (29 sets, daily range): BP systolic 115–166; BP diastolic 27–71; PULSE 74–98; RESP 9–37; TEMP 36.2–36.5; O2SAT 89–99; BMI 28.8
[2020-04-09 00:13] LABS: Anion Gap 18 (12-20); Carbon Dioxide 23 mmol/L (22-29); Chloride 104 mmol/L (96-108); Potassium 5.1 mmol/l (3.3-5.1); Sodium 140 mmol/L (135-145)
[2020-04-09 00:23] LABS: Glucose, Whole Blood 155 mg/dL (60-115)
[2020-04-09] MEDS: methylPREDNISolone Sod Succ/PF 125 MG/2 ML VIAL 250 MG IV ×3 (00:45→12:05)
[2020-04-09] MEDS: Insulin Regular/NS 100 UNIT/100 ML PLAST..BAG IVCONT (03:10)
[2020-04-09] MEDS: Heparin Sodium,Porcine/1/2NS 25,000 UNIT/250 ML IV.SOLN 6.74 UNIT IVCONT (03:11)
[2020-04-09 03:24] LABS: Glucose, Whole Blood 165 mg/dL (60-115)
[2020-04-09 06:15] LABS: Hematocrit 35.3 % (42-52); Hemoglobin 11.9 g/dl (14.0-18.0); Imm Gran Abs Auto 0.24 X10*3/uL (0.00-0.03); Imm Gran Pct Auto 1.1 % (0.0-0.4); Lymphocytes Absolute Auto 0.5 X10*3/uL (1.2-4.9); Lymphocytes Percent Auto 2.3 % (20-40); MANUAL DIFF FLAG NO; Mean Corpuscular HGB Conc 33.7 g/dl (31.0-36.0); Mean Corpuscular Hemoglobin 30.1 pg (27.0-33.0); Mean Corpuscular Volume 89.4 fL (80-98); Mean Platelet Volume 12.3 fL (9.4-12.4); Monocytes Absolute Auto 0.9 X10*3/uL (0.1-1.2); NRBC Pct Auto 0.1 /100WBC (0.0-0.2); Neutrophils Absolute Auto 20.1 X10*3/uL (2.0-8.3); Neutrophils Percent Auto 92.6 % (45-73); Red Blood Count 3.95 X10*6/uL (4.60-5.80); SCAN SMEAR FLAG 1; White Blood Count 21.7 X10*3/uL (4.8-10.8)
[2020-04-09 06:16] LABS: Base Excess VBG -0.8 mmol/L; HCO3 VBG 26 mmol/L; Oxygen Saturation VBG 80.8 %; PCO2 VBG 52 mmhg; PO2 VBG 49 mmhg; pH VBG 7.32 (7.32-7.43)
[2020-04-09 06:20] LABS: Platelet Count 90 X10*3/uL (160-400)
[2020-04-09 06:27] LABS: Sodium Urine Random < 20.0 mmol/L
[2020-04-09 06:34] LABS: PTT Heparin Drip 70.1 SEC (53-77.9)
[2020-04-09 06:45] LABS: D Dimer 3325 NG/ML
[2020-04-09 06:53] LABS: Blood Urea Nitrogen 103 mg/dL (9-16)
[2020-04-09 06:54] LABS: Alanine Aminotransferase 28 U/L (0-40); Albumin Level 3.3 g/dL (3.5-5.0); Alkaline Phosphatase 43 U/L (39-117); Anion Gap 14 (12-20); Aspartate Amino Transferase 32 U/L (5-37); Bilirubin Total 3.1 mg/dL (0.0-1.0); C Reactive Protein 1.08 mg/dL (< or = 0.50); Calcium 7.5 mg/dL (8.4-10.2); Carbon Dioxide 25 mmol/L (22-29); Chloride 107 mmol/L (96-108); Creatinine Clr Calc Pharmacy 38.2; Estimated Glomerular Filt Rate 42; Glucose Random 186 mg/dL (60-115); Phosphorus 4.2 mg/dL (2.7-4.5); Potassium 5.1 mmol/l (3.3-5.1); Sodium 141 mmol/L (135-145); Total Protein 5.2 g/dL (6.5-8.0)
[2020-04-09 08:32] LABS: Ferritin 2737 ng/mL (20-250)
[2020-04-09] MEDS: Famotidine/PF 20 MG/2 ML VIAL IVPUSH ×2 (09:40→20:58)
[2020-04-09] MEDS: fentaNYL citrate/NS 1,000 MCG/100 ML PLAST..BAG 2 MCG IVCONT (10:26)
[2020-04-09 10:38] LABS: Glucose, Whole Blood 221 mg/dL (60-115)
--- NOTE | 2020-04-09 11:22 | P.PNNP_ITS ---
Subjective Subjective Date of Service: 04/09/20 Interval history: events noted and d/w icu team incr UOP Physical Exam Vital Signs: Vital Signs: Last Vital Signs Temp 97.2 F 04/09/20 10:00 Pulse 74 04/09/20 10:00 Resp 12 04/09/20 10:00 BP 136/47 L 04/09/20 10:00 Pulse Ox 96 04/09/20 10:00 Body Mass Index 28.8 cont Bipap Const: Other: General - no significant distress Cardiovascular - regular rate and rhythm, S1-S2 Lungs - dim sounds, distress with any exertion, Abdomen - soft, nontender, no rebound or guarding Extremities - no edema bilaterally Neuro - awake and alert, no focal deficits General: cooperative, no acute distress, alert, awake and ill appearing Nutritional Appearance: well nourished Orientation/consciousness: patient oriented x3 HENMT: Head: Yes normal to inspection, Yes normocephalic and Yes atraumatic Eyes: General: appearance normal, both eyes and all related structures Sclerae: sclerae normal EOM: EOMs intact bilaterally Neck: Neck: Yes no lymphadenopathy, Yes trachea midline and Yes supple Chest: Chest palpation & inspection: normal inspection of the chest Resp: Other: labored breathing with conversation but able to speak in full sentences Effort & Inspection: normal respiratory effort, abnormal respiratory pattern and no respiratory distress Auscultation: clear to auscultation bilaterally, crackles bilateral and diffuse and diminished lung sounds Cardio: Other: General - no significant distress Cardiovascular - regular rate and rhythm, S1-S2 Lungs - dim sounds, distress with any exertion, Abdomen - soft, nontender, no rebound or guarding Extremities - no edema bilaterally Neuro - awake and alert, no focal deficits Rate: regular rate and tachycardic Rhythm: regular rhythm Heart sounds: S1 normal heart sound present, S2 normal heart sound present, no gallops, no murmurs and no rubs GI: Palpation (GI): Soft to palpation, nontender, no guarding and Other GI palpation findings present ( Nontender) Auscultation: normal bowel sounds Skin: General skin exam: no rashes or lesions noted Neuro: General: patient oriented x3 Cranial nerves: Yes CN's II-XII intact bilaterally and Yes Bilaterally intact EOM present Extrem: General: Yes normal to inspection, Yes no pedal edema, No clubbing, No cyanosis, No edema and No pedal edema Objective Data Labs CBC & Chem 7: 04/09/20 06:00 04/09/20 06:00 Labs: Laboratory Results - last 24 hr 04/08/20 04/08/20 04/08/20 12:22 12:45 14:11 WBC RBC Hgb Hct MCV MCH MCHC RDW Plt Count MPV Immature Gran % (Auto) Neut % (Auto) Lymph % (Auto) [place] % (Auto) Eos % (Auto) Baso % (Auto) Lymph # (Auto) [place] # (Auto) Eos # (Auto) Baso # (Auto) Abs Immat Gran (auto) Absolute Neuts (auto) Absolute Nucleated RBC Nucleated RBC % (auto) PTT (Heparin Protocol) D-Dimer VBG pH VBG pCO2 VBG pO2 VBG HCO3 VBG O2 Saturation VBG Base Excess Sodium 137 Potassium 5.7 H Chloride 105 Carbon Dioxide 24 Anion Gap 14 BUN 105 H* Creatinine 1.88 H Estim Creat Clear Calc 32.4 Estimated GFR 35 POC Glucose 83 99 Random Glucose 93 Lactic Acid Calcium 7.6 L Phosphorus Ferritin Total Bilirubin AST ALT Alkaline Phosphatase C-Reactive Protein Total Protein Albumin Procalcitonin Ur Random Sodium 04/08/20 04/08/20 04/08/20 18:10 18:10 18:10 WBC RBC Hgb Hct MCV MCH MCHC RDW Plt Count MPV Immature Gran % (Auto) Neut % (Auto) Lymph % (Auto) [place] % (Auto) Eos % (Auto) Baso % (Auto) Lymph # (Auto) [place] # (Auto) Eos # (Auto) Baso # (Auto) Abs Immat Gran (auto) Absolute Neuts (auto) Absolute Nucleated RBC Nucleated RBC % (auto) PTT (Heparin Protocol) D-Dimer VBG pH 7.33 VBG pCO2 46 VBG pO2 37 VBG HCO3 23 VBG O2 Saturation 66.7 VBG Base Excess -2.7 Sodium 138 Potassium 5.3 H Chloride 103 Carbon Dioxide 25 Anion Gap 15 BUN 106 H* Creatinine 1.80 H Estim Creat Clear Calc 33.8 Estimated GFR 36 POC Glucose Random Glucose 143 H D Lactic Acid 1.9 Calcium 7.7 L Phosphorus Ferritin Total Bilirubin AST ALT Alkaline Phosphatase C-Reactive Protein Total Protein Albumin Procalcitonin Ur Random Sodium 04/08/20 04/08/20 04/09/20 20:13 23:37 00:18 WBC RBC Hgb Hct MCV MCH MCHC RDW Plt Count MPV Immature Gran % (Auto) Neut % (Auto) Lymph % (Auto) [place] % (Auto) Eos % (Auto) Baso % (Auto) Lymph # (Auto) [place] # (Auto) Eos # (Auto) Baso # (Auto) Abs Immat Gran (auto) Absolute Neuts (auto) Absolute Nucleated RBC Nucleated RBC % (auto) PTT (Heparin Protocol) D-Dimer VBG pH VBG pCO2 VBG pO2 VBG HCO3 VBG O2 Saturation VBG Base Excess Sodium 140 Potassium 5.1 Chloride 104 Carbon Dioxide 23 Anion Gap 18 BUN Creatinine Estim Creat Clear Calc Estimated GFR POC Glucose 146 H 155 H Random Glucose Lactic Acid Calcium Phosphorus Ferritin Total Bilirubin AST ALT Alkaline Phosphatase C-Reactive Protein Total Protein Albumin Procalcitonin Ur Random Sodium 04/09/20 04/09/20 04/09/20 03:14 05:05 06:00 WBC 21.7 H RBC 3.95 L Hgb 11.9 L Hct 35.3 L MCV 89.4 MCH 30.1 MCHC 33.7 RDW 15.0 Plt Count 90 L D MPV 12.3 Immature Gran % (Auto) 1.1 H Neut % (Auto) 92.6 H Lymph % (Auto) 2.3 L [place] % (Auto) 4.0 Eos % (Auto) 0.0 Baso % (Auto) 0.0 Lymph # (Auto) 0.5 L [place] # (Auto) 0.9 Eos # (Auto) 0.0 Baso # (Auto) 0.0 Abs Immat Gran (auto) 0.24 H Absolute Neuts (auto) 20.1 H Absolute Nucleated RBC 0.020 H Nucleated RBC % (auto) 0.1 PTT (Heparin Protocol) D-Dimer VBG pH VBG pCO2 VBG pO2 VBG HCO3 VBG O2 Saturation VBG Base Excess Sodium Potassium Chloride Carbon Dioxide Anion Gap BUN Creatinine Estim Creat Clear Calc Estimated GFR POC Glucose 165 H Random Glucose Lactic Acid Calcium Phosphorus Ferritin Total Bilirubin AST ALT Alkaline Phosphatase C-Reactive Protein Total Protein Albumin Procalcitonin Ur Random Sodium < 20.0 04/09/20 04/09/20 04/09/20 06:00 06:00 06:00 WBC RBC Hgb Hct MCV MCH MCHC RDW Plt Count MPV Immature Gran % (Auto) Neut % (Auto) Lymph % (Auto) [place] % (Auto) Eos % (Auto) Baso % (Auto) Lymph # (Auto) [place] # (Auto) Eos # (Auto) Baso # (Auto) Abs Immat Gran (auto) Absolute Neuts (auto) Absolute Nucleated RBC Nucleated RBC % (auto) PTT (Heparin Protocol) D-Dimer 3325 VBG pH VBG pCO2 VBG pO2 VBG HCO3 VBG O2 Saturation VBG Base Excess Sodium 141 Potassium 5.1 Chloride 107 Carbon Dioxide 25 Anion Gap 14 BUN 103 H* Creatinine 1.59 H Estim Creat Clear Calc 38.2 Estimated GFR 42 POC Glucose Random Glucose 186 H Lactic Acid Calcium 7.5 L Phosphorus 4.2 Ferritin 2737 H Total Bilirubin 3.1 H AST 32 ALT 28 Alkaline Phosphatase 43 D C-Reactive Protein 1.08 H Total Protein 5.2 L Albumin 3.3 L D Procalcitonin 0.10 Ur Random Sodium 04/09/20 04/09/20 04/09/20 06:00 06:00 10:32 WBC RBC Hgb Hct MCV MCH MCHC RDW Plt Count MPV Immature Gran % (Auto) Neut % (Auto) Lymph % (Auto) [place] % (Auto) Eos % (Auto) Baso % (Auto) Lymph # (Auto) [place] # (Auto) Eos # (Auto) Baso # (Auto) Abs Immat Gran (auto) Absolute Neuts (auto) Absolute Nucleated RBC Nucleated RBC % (auto) PTT (Heparin Protocol) 70.1 D-Dimer VBG pH 7.32 VBG pCO2 52 VBG pO2 49 VBG HCO3 26 VBG O2 Saturation 80.8 VBG Base Excess -0.8 Sodium Potassium Chloride Carbon Dioxide Anion Gap BUN Creatinine Estim Creat Clear Calc Estimated GFR POC Glucose 221 H Random Glucose Lactic Acid Calcium Phosphorus Ferritin Total Bilirubin AST ALT Alkaline Phosphatase C-Reactive Protein Total Protein Albumin Procalcitonin Ur Random Sodium Microbiology Microbiology Results: Microbiology 03/24/20 10:32 Blood - Venous Blood Culture - Final No growth after 5 days. 03/24/20 10:20 Blood - Venous Blood Culture - Final No growth after 5 days. Assessment & Plan Assessment and plan (1) TYE (acute kidney injury): Status: Acute (2) Hyperkalemia: Status: Acute (3) COVID-19: Status: Acute Assessment and Plan: 1. TYE; renal func relatively stable slt imporved and incr uop 2. HyperNa: resolved with FWatre replaceemnt. 3. Incr Bun/Cr: multifact including high catabloic rate; decr IV vol and steroids 4. Resp Fail: covid lung 5. hyperk: better now after lasix and inr UOP REC: cont to track UOP/renal func and K level; no indication for dialysis a this time will follow with ICU Time Spent With Patient Time: Total time spent is greater than 50% in coordination of care (as documented) at patient's floor/unit and/or counseling patient:
[2020-04-09] MEDS: Albumin Human 25 % 100 ML IV ×2 (13:37→15:40)
[2020-04-09 15:09] LABS: PCO2 VBG 56 mmhg; pH VBG 7.24 (7.32-7.43)
[2020-04-09 15:10] LABS: Base Excess VBG -4.3 mmol/L; HCO3 VBG 23 mmol/L; Oxygen Saturation VBG 90.3 %; PO2 VBG 69 mmhg
--- NOTE | 2020-04-09 16:20 | P.PNCC_ITS ---
Subjective Subjective Date of Service: 04/09/20 Interval History: Mr. Us was admitted to ICU on Mar 30 for acute respiratory failure secondary to COVID pneumonia. 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 His was diagnosed with COVID-19 at the beginning of March. He began having symptoms on March 18; his 's symptoms have since resolved. He was admitted to [facility] on 03/24/2020 with progressive hypoxemia secondary to COVID-19. Presenting sat was 80% on room air. Lab work revealed elevated ferritin of 1492, LDH of 426 and CRP of 8.67. Chest x-ray was unremarkable. He required oxygen by Venti mask to maintain oxygen saturations above 90. He was admitted to medicine and treated with remdesivir and dexamethasone. Escalating FiO2 requirements required noninvasive positive pressure ventilation, for which he was transferred to ICU on Mar 30. He was given DVT prophylaxis level-Lovenox. Hospital course further complicated by coagulopathy and acute kidney injury. In the ICU, the patient?s mental status has remained good for the most part. He?s required NIV by mask almost continuously. A noncontrast chest CT on 04/03 showed diffuse bilateral infiltrates throughout almost the entire lung, consistent with coronavirus disease, although the infiltrates were not as dense as some that we have seen (which probably accounts for why he has not yet required mechanical ventilation). Duplex scan of the lower extremities that day showed clot throughout the right lower extremity and in the left calf. So we upped his anticoagulation to Lovenox 1 mg/kg bid, bumped his steroids to Solumedrol 80 mg bid, and added Pepcid and thiamine. He was also started him on a D5W infusion because of hypernatremia and because of a markedly elevated renal ratio, with a low urine sodium. On 04/05, his minute volume on CPAP was up to 27Liters, and central venous pCO2 was up to 55mm. We changed him over to BiPAP, held his Lovenox, and gave him ? dose tPA. We also started him on an insulin drip. By the next day (04/06) there was no clear improvement in his oxygenation or pCO2. With the high CHB load from the D5W he was getting at 200cc/hr (for his hypernatremia and high renal ratio), his Ve was up to high 20s. We started him on pulse steroids, 1G/day x 3 days, and a fentanyl drip and his came in to spend some time with him. Since then, his FiO2 has been able to be reduced to as low as 70%, but has been waxing and waning. Has occ periods of severe destaturation requiring his FiO2 to be upped to 100%. His RR and minute vol are consistently down though. Started TPN yesterday. See Vital Signs below. Currently on BiPAP 18/90% (had been as low as 25/01 yesterday), with RR 18-24, Vt 630cc, Ve 19L on fentanyl 20ug, Sat 95%. CVBG this morning showed 7.32/52/0. BP today more stable, in the 120?s-150?s. Heart rhythm is stable atrial fibrillation, reasonably controlled with no meds. He continues afebrile. He?s easily arousable and gives me a thrumbs up. Looks a little more tired today. Had a dyspneic episode early this afternoon that responded will to a bolus of 50ug fentanyl and an increase in FiO2 to 100%. He has a stage 2 press ulcer on his nose from the BiPAP mask. The mask was changed to a larger mask on Apr 07. Has trivial accessory muscle use and work of breathing is very slightly increased but he generally looks comfortable. No pressors. No JVD. Normal expiratory phase. Abdomen benign. 1-2+ leg edema today. I&Os: U/o average overnite was up to about 100cc/hr. LABORATORY DATA: As below. Notably, BUN and creatinine down to 103/1.5 this morning, and K down to 5.1. Urine sodium still less than 20. Tbili up to 3.1, but transaminases normal. D-dimer down to 3300. Ferritin down to 2700. Steroids: 3 days of pulse steroids completed yesterday, now back on Solu-Medrol 80mg bid. ECHOCARDIOGRAM Apr 04 notable for: 1. Normal LV systolic function with mild LVH. 2. Normal right ventricular cavity size, w normal right ventricular fxn. 3. Moderately enlarged left atrium 4. Mild aortic and mitral regurgitation 5. Normal RV systolic pressure 6. Severely dilated ascending aorta at 5.1 cm IMPRESSION: 1. Bilateral COVID-19 ARDS. Resp status is off and on. Ve is definitely down, but oxygenation is not consistently improved. Continuing on heparin gtt for his DVT. 2. Acute hypoxemic and hypercarbic respiratory failure. Secondary to above, and possible pulmonary VTE (suggested by the severe hypoxemia w high DDimer ). 3. TYE. Secondary to COVID-19, plus dehydration. Renal indices and potassium better today, possibly due to improved hydration. Follow renal indices and urine-Na daily. 4. Hyperkalemia. Improving as his renal indices improved. 5. Hypernatremia. Finally resolved. 6. Afib. Rate reasonably controlled on no medications. Restarted anticoagulation Apr 07 with heparin gtt. 7. ID. No abx indicated (yet). 8. Nutrition. Started on low dose TPN yesterday. A concern is that he might not be able to handle a large CHB load bec of the obligate CO2 excretion. Prognosis is poor, given his age. There?ve been some definite improvements in his resp status, but he?s got a long way and many days to go. Spoke to his again today. She has an appropriate perspective on the situation. We?ll continue with current plan. DNR/DNI status. No intubation. We?ll continue to support him on BiPAP as best as possible. So far, when he gets dyspneic, he responds very well to a bolus of fentanyl 50ug. Critical care time: 60 min. Physical Exam Vital Signs: Vital Signs: Last Vital Signs Temp 97.3 F 04/09/20 15:47 Pulse 81 04/09/20 15:47 Resp 19 04/09/20 15:47 BP 146/42 H 04/09/20 15:47 Pulse Ox 95 04/09/20 15:47 Body Mass Index 28.8 Objective Data Labs CBC & Chem 7: 04/09/20 06:00 04/09/20 06:00 Labs: Laboratory Results - last 24 hr 04/08/20 04/08/20 04/08/20 12:22 18:10 18:10 WBC RBC Hgb Hct MCV MCH MCHC RDW Plt Count MPV Immature Gran % (Auto) Neut % (Auto) Lymph % (Auto) [place] % (Auto) Eos % (Auto) Baso % (Auto) Lymph # (Auto) [place] # (Auto) Eos # (Auto) Baso # (Auto) Abs Immat Gran (auto) Absolute Neuts (auto) Absolute Nucleated RBC Nucleated RBC % (auto) PTT (Heparin Protocol) D-Dimer VBG pH VBG pCO2 VBG pO2 VBG HCO3 VBG O2 Saturation VBG Base Excess Sodium 137 138 Potassium 5.7 H 5.3 H Chloride 105 103 Carbon Dioxide 24 25 Anion Gap 14 15 BUN 105 H* 106 H* Creatinine 1.88 H 1.80 H Estim Creat Clear Calc 32.4 33.8 Estimated GFR 35 36 POC Glucose Random Glucose 93 143 H D Lactic Acid 1.9 Calcium 7.6 L 7.7 L Phosphorus Ferritin Total Bilirubin AST ALT Alkaline Phosphatase C-Reactive Protein Total Protein Albumin Procalcitonin Ur Random Sodium 04/08/20 04/08/20 04/08/20 18:10 20:13 23:37 WBC RBC Hgb Hct MCV MCH MCHC RDW Plt Count MPV Immature Gran % (Auto) Neut % (Auto) Lymph % (Auto) [place] % (Auto) Eos % (Auto) Baso % (Auto) Lymph # (Auto) [place] # (Auto) Eos # (Auto) Baso # (Auto) Abs Immat Gran (auto) Absolute Neuts (auto) Absolute Nucleated RBC Nucleated RBC % (auto) PTT (Heparin Protocol) D-Dimer VBG pH 7.33 VBG pCO2 46 VBG pO2 37 VBG HCO3 23 VBG O2 Saturation 66.7 VBG Base Excess -2.7 Sodium 140 Potassium 5.1 Chloride 104 Carbon Dioxide 23 Anion Gap 18 BUN Creatinine Estim Creat Clear Calc Estimated GFR POC Glucose 146 H Random Glucose Lactic Acid Calcium Phosphorus Ferritin Total Bilirubin AST ALT Alkaline Phosphatase C-Reactive Protein Total Protein Albumin Procalcitonin Ur Random Sodium 04/09/20 04/09/20 04/09/20 00:18 03:14 05:05 WBC RBC Hgb Hct MCV MCH MCHC RDW Plt Count MPV Immature Gran % (Auto) Neut % (Auto) Lymph % (Auto) [place] % (Auto) Eos % (Auto) Baso % (Auto) Lymph # (Auto) [place] # (Auto) Eos # (Auto) Baso # (Auto) Abs Immat Gran (auto) Absolute Neuts (auto) Absolute Nucleated RBC Nucleated RBC % (auto) PTT (Heparin Protocol) D-Dimer VBG pH VBG pCO2 VBG pO2 VBG HCO3 VBG O2 Saturation VBG Base Excess Sodium Potassium Chloride Carbon Dioxide Anion Gap BUN Creatinine Estim Creat Clear Calc Estimated GFR POC Glucose 155 H 165 H Random Glucose Lactic Acid Calcium Phosphorus Ferritin Total Bilirubin AST ALT Alkaline Phosphatase C-Reactive Protein Total Protein Albumin Procalcitonin Ur Random Sodium < 20.0 04/09/20 04/09/20 04/09/20 06:00 06:00 06:00 WBC 21.7 H RBC 3.95 L Hgb 11.9 L Hct 35.3 L MCV 89.4 MCH 30.1 MCHC 33.7 RDW 15.0 Plt Count 90 L D MPV 12.3 Immature Gran % (Auto) 1.1 H Neut % (Auto) 92.6 H Lymph % (Auto) 2.3 L [place] % (Auto) 4.0 Eos % (Auto) 0.0 Baso % (Auto) 0.0 Lymph # (Auto) 0.5 L [place] # (Auto) 0.9 Eos # (Auto) 0.0 Baso # (Auto) 0.0 Abs Immat Gran (auto) 0.24 H Absolute Neuts (auto) 20.1 H Absolute Nucleated RBC 0.020 H Nucleated RBC % (auto) 0.1 PTT (Heparin Protocol) D-Dimer 3325 VBG pH VBG pCO2 VBG pO2 VBG HCO3 VBG O2 Saturation VBG Base Excess Sodium 141 Potassium 5.1 Chloride 107 Carbon Dioxide 25 Anion Gap 14 BUN 103 H* Creatinine 1.59 H Estim Creat Clear Calc 38.2 Estimated GFR 42 POC Glucose Random Glucose 186 H Lactic Acid Calcium 7.5 L Phosphorus 4.2 Ferritin 2737 H Total Bilirubin 3.1 H AST 32 ALT 28 Alkaline Phosphatase 43 D C-Reactive Protein 1.08 H Total Protein 5.2 L Albumin 3.3 L D Procalcitonin Ur Random Sodium 04/09/20 04/09/20 04/09/20 06:00 06:00 06:00 WBC RBC Hgb Hct MCV MCH MCHC RDW Plt Count MPV Immature Gran % (Auto) Neut % (Auto) Lymph % (Auto) [place] % (Auto) Eos % (Auto) Baso % (Auto) Lymph # (Auto) [place] # (Auto) Eos # (Auto) Baso # (Auto) Abs Immat Gran (auto) Absolute Neuts (auto) Absolute Nucleated RBC Nucleated RBC % (auto) PTT (Heparin Protocol) 70.1 D-Dimer VBG pH 7.32 VBG pCO2 52 VBG pO2 49 VBG HCO3 26 VBG O2 Saturation 80.8 VBG Base Excess -0.8 Sodium Potassium Chloride Carbon Dioxide Anion Gap BUN Creatinine Estim Creat Clear Calc Estimated GFR POC Glucose Random Glucose Lactic Acid Calcium Phosphorus Ferritin Total Bilirubin AST ALT Alkaline Phosphatase C-Reactive Protein Total Protein Albumin Procalcitonin 0.10 Ur Random Sodium 04/09/20 04/09/20 10:32 14:44 WBC RBC Hgb Hct MCV MCH MCHC RDW Plt Count MPV Immature Gran % (Auto) Neut % (Auto) Lymph % (Auto) [place] % (Auto) Eos % (Auto) Baso % (Auto) Lymph # (Auto) [place] # (Auto) Eos # (Auto) Baso # (Auto) Abs Immat Gran (auto) Absolute Neuts (auto) Absolute Nucleated RBC Nucleated RBC % (auto) PTT (Heparin Protocol) D-Dimer VBG pH 7.24 L VBG pCO2 56 VBG pO2 69 VBG HCO3 23 VBG O2 Saturation 90.3 VBG Base Excess -4.3 Sodium Potassium Chloride Carbon Dioxide Anion Gap BUN Creatinine Estim Creat Clear Calc Estimated GFR POC Glucose 221 H Random Glucose Lactic Acid Calcium Phosphorus Ferritin Total Bilirubin AST ALT Alkaline Phosphatase C-Reactive Protein Total Protein Albumin Procalcitonin Ur Random Sodium Microbiology Microbiology Results: Microbiology 03/24/20 10:32 Blood - Venous Blood Culture - Final No growth after 5 days. 03/24/20 10:20 Blood - Venous Blood Culture - Final No growth after 5 days. Progress Note: A&P Time Spent With Patient Time: Total time spent is greater than 50% in coordination of care (as documented) at patient's floor/unit and/or counseling patient: Total time spent with greater than 50% in coordination of care (as documented) at patient's floor/unit and/or counseling patient:: 0 Critical Care Time Critical Care Time (minutes): 60
[2020-04-09 16:55] LABS: Glucose, Whole Blood 208 mg/dL (60-115)
--- NOTE | 2020-04-09 23:15 | P.PNCC_ITS ---
Critical Care Event Note Summary Code activated: No Narrative: Please refer to the patient's chart for details, this unfortunate patient who has been dealing with hypoxic respiratory failure in the setting of COVID-19, once again decompensated tonight. At 11:15 p.m., I was prompted by nursing personnel has the patient became hypoxic in the low 70s while on BiPAP. Some adjustments were made to the settings of this machine, fentanyl 25 mcg x 5 doses required to calmed the patient down and decrease his respiratory rate which was up in the 40s. Subsequently, the patient wars noted to have a some bleeding from the external nose due to the pressure ulcer caused by the mass, the area was clean and dressed. The mask was reapplied. The patient continued to decompensate little by little. I have contacted this patient's Mrs Anjali Us and may hinder aware of the current scenario. The patient is DNR DNI, however at this point if he continues to deteriorate, she would be okay with instituting comfort measures only. At 11:40 pm., the patient continued to have issues with his oxygen saturation, he is O2 sat is waxing and waning in the mid 80s, however the patient is flaccid, cyanotic at the lips and distal extremities. Skin is turning cold and mottled. I called the again and inform her of these worsening decompensation. Patient was started on Dilaudid. At 12:15 a.m. on 04/10/2020, patient's arrived and is at bedside. At this point we have decided to institute full comfort measures. Patient will continue with Dilaudid, will give him Ativan Intensol under the tongue as needed for anxiety and if necessary atropine or scopolamine for secretions. The BiPAP will be removed and he will be placed on nasal cannula only for comfort at this point. It is unclear how long it will take for the patient is passing however it is clear that we will attempt these in the most humane and non suffering way. At 12:55 p.m., the patient has , there is no heart rate by monitor, pulse is or apical. Is no longer breathing and there is no corneal reflexes. At this time the patient has been pronounced . Reason for that is cardiopulmonary arrest in the setting of COVID 19 Critical care time used for critical evaluation of this patient, diagnosis, ruchi atment and coordination of care, review her records and documentation TOTAL CRITICAL CARE TIME 90 MIN . Patient's care was discussed in detail with Dr. Tarango. He is aware of all the above as well as the plan of care for this patient. Critical Care Time (minutes): 90
[2020-04-09] MEDS: 0.9 % Sodium Chloride Flush 3 ML SYRINGE IVFLUSH (23:30)
[2020-04-09] MEDS: methylPREDNISolone Sod Succ/PF 125 MG/2 ML VIAL 80 MG IVPUSH (23:30)
[2020-04-09] MEDS: fentaNYL citrate/PF 100 MCG/2 ML VIAL 25 MCG IVPUSH (23:58)
[2020-04-10] VITALS: BP 144/66; PULSE 96; RESP 36; TEMP 36.8; O2SAT 88
[2020-04-10] MEDS: HYDROmorphone HCl 1 MG/ML SYRINGE 0.5 MG IVPUSH ×2 (00:01→00:33)
[2020-04-10 00:33] VITALS: RESP 18
[2020-04-10] MEDS: LORazepam 2 MG/ML VIAL 1 MG IVPUSH (01:06)
--- NOTE | 2020-04-10 01:08 | PC.NURSE ---
[facility] declined for all donations. Spoke with Eimlie, case #[id number]
--- NOTE | 2020-04-10 02:15 | PC.NURSE ---
CARE ASSUMED 23;15...REMAINS BIPAP...LETHARGIC--EYES OPEN BUT DOES NOT TRACK OR RESPOND TO VERBAL STIMULI..RANDOMLY MOVES EXTREMETIES BUT NOT TO COMMAND...RESPIRATIONS LABOURED/TACHYPNEIC AT REST...FENTANYL DRIP 20 MCG/HR...FENTANYL 25 MCG IVP FOLLOWED BY DILAUDID 0.5MG IVP PER ICU PA FOR SEVERE WORK OF BREATHING WITH SOME EFFECT...PATIENT'S UPDATED BY ICU PA... ARRIVED TO ICU ACCOMPANIED BY NURSING POLICE CAPTAIN SENIOR... AT BEDSIDE AND REQUESTED PSYCHIATRIC TECH STATUS...DILAUDID AND ATIVAN GIVEN PER MAR/ICU PA...BIPAP MASK REMOVED...PATIENT REMAINED UNRESPONSIVE...MONITOR ASYSTOLE/APNEIC 00:55...PRONOUNCED BY ICU PA NUZHAT GUZMAN... TOOK BELONGINGS HOME & REQUESTED [facility] FOR [facility]ARE..POST-MORTEM CARE DONE...TO TRANSPORT TO [facility] [place] VIA [facility]
[2020-04-10 04:12] LABS: Glucose, Whole Blood 183 mg/dL (60-115)
--- NOTE | 2020-06-05 11:38 | P.DN_ITS ---
Discharge Sum: Prov Provider Primary care physician: Juan Andrea MD Consults: 03/24/20 14:25 Consult to Infectious Diseases Routine Consulting Provider: Bessie Fields Reason for consultation: covid 19 pna Has provider been notified: No Consult to Pulmonology Routine Consulting Provider: Wilmer Sy Reason for consultation: covid19 pna 04/02/20 12:24 Consult to Nephrology Routine Consulting Provider: Tomas Salgado Reason for consultation: TYE Discharge Sum: Diag Contributing Factors (1) TYE (acute kidney injury): (2) Hyperkalemia: (3) COVID-19: Discharge Sum: Summary Date and Time Date of admission: 03/24/20 14:25 Date of : 04/10/20 Time of : 00:55 Summary Details: NOTE DISCHARGE DIAGNOSES: 1. Bilateral COVID-19 pneumonia. 2. ARDS. 3. Acute hypoxemic and hypercarbic respiratory failure. 4. TYE. 5. Bilateral lower extremity DVT. 6. A fib. 7. Hypovolemia. 8. Hyperkalemia. 9. Hypernatremia. Mr. Us was an 84-year-old gentleman with underlying history of AFib on Coumadin, CKD stage 3, and hypertension. His was diagnosed with COVID-19 at the beginning of March. He began having symptoms on March 18. He was admitted to [facility] [place] on 03/24/2020 with progressive hypoxemia secondary to COVID-19. Presenting sat was 80% on room air. Lab work revealed elevated ferritin of 1492, LDH of 426 and CRP of 8.67. Chest x-ray was unremarkable. He required oxygen by Venti mask to maintain oxygen saturations above 90. He was admitted to medicine and treated with remdesivir and dexamethasone. Escalating FiO2 requirements required noninvasive positive pressure ventilation, for which he was transferred to ICU on Mar 30. He was given DVT prophylaxis level-Lovenox. Hospital course was further complicated by coagulopathy and acute kidney injury. In the ICU, the patient?s mental status remained good for the most part. He?s required NIV by mask almost continuously. A noncontrast chest CT on 04/03 showed diffuse bilateral infiltrates throughout almost the entire lung, consistent with coronavirus disease. Duplex scan of the lower extremities that day showed clot throughout the right lower extremity and in the left calf. So we upped his anticoagulation to Lovenox 1 mg/kg bid, bumped his steroids to Solumedrol 80 mg bid, and added Pepcid and thiamine. He was also started him on a D5W infusion because of hypernatremia and because of a markedly elevated renal ratio, with a low urine sodium. Echocardiogram on Apr 04 was notable normal LV systolic function, normal right ventricular cavity size, normal right ventricular fxn, and normal RV systolic pressure. On 04/05, his minute volume on CPAP was up to 27Liters, and central venous pCO2 was up to 55mm. We changed him over to BiPAP, held his Lovenox, and gave him ? dose tPA. We also started him on an insulin drip. By the next day (04/06) there was no clear improvement in his oxygenation or pCO2. With the high CHB load from the D5W he was getting at 200cc/hr (for his hypernatremia and high renal ratio), his Ve was up to high 20s. We started him on pulse steroids, 1G/day x 3 days, and a fentanyl drip, and his came in to spend some time with him. Subsequently, he had periods of transient improvement, periods that we could get his FiO2 down as low as 70%, that unfortunately didn?t last. We kept his informed of the situation, and she made the decision that we would not intubate. On the night Apr 09, he had another severe desaturation from which he was unable to be recovered. His came in to be with him and full comfort measures were instituted. He about an hour later. Additional Data Attending physician: Alvin Tarango
== END 2020-04-10 00:50 | disposition expired | DRG 177 ==
LOC: HO.ED 09:57 → HO.ISO 16:45 → HO.IMC 03-29 14:57 → HO.ICU 03-29 16:47
PROVIDERS: Family Medicine; Internal Medicine; Internal Medicine Nephrology; Internal Medicine Pulmonary Disease; Physician Assistant Medical; Registered Nurse Community Health; Admitting Provider Internal Medicine; Emergency Provider Emergency Medicine; PCP Internal Medicine; Visit Provider Anesthesiology
DX: U07.1 COVID-19 (principal); J80 Acute respiratory distress syndrome; J12.89 Other viral pneumonia; N17.0 Acute kidney failure with tubular necrosis; D68.9 Coagulation defect, unspecified; E87.0 Hyperosmolality and hypernatremia; I82.4Z3 Acute embolism and thrombosis of unspecified deep veins of distal lower extremity, bilateral; E66.9 Obesity, unspecified; Z68.28 Body mass index [BMI] 28.0-28.9, adult; R91.1 Solitary pulmonary nodule; E87.5 Hyperkalemia; I48.91 Unspecified atrial fibrillation; N18.30 Chronic kidney disease, stage 3 unspecified; I12.9 Hypertensive chronic kidney disease with stage 1 through stage 4 chronic kidney disease, or unspecified chronic kidney disease; E78.5 Hyperlipidemia, unspecified; Z87.891 Personal history of nicotine dependence; Z79.01 Long term (current) use of anticoagulants; Z79.899 Other long term (current) drug therapy
CPT/HCPCS: 0241U; 36415; 71045; 71250; 80048; 80051; 80053; 80076; 82040; 82728; 82803; 82947; 83605; 83615; 83690; 83735; 83880; 84100; 84145; 84156; 84300; 84484; 85025; 85027; 85379; 85610; 85730; 86140; 86769; 87040; 93005; 93306; 93970; 94660; 94799; 96365; 96375; 99225; 99285; 99291; C1758; J0456; J0610; J0696; J1100; J1170; J1200; J1650; J1940; J2060; J2270; J2920; J2930; J2997; J3010; J3411; J3430; J3490; P9047